=== PATIENT | male | born 1955 | race Caucasian/White ===

== ENCOUNTER 2024-11-12 20:14 | Inpatient (IN) | payer MEDICARE, BC, SELFPAY ==
[2024-11-12] VITALS (21 sets, daily range): BP systolic 62–141; BP diastolic 34–109; BMI 43.5
[2024-11-12] MEDS: DIPRIVAN 100 MG IV ×3 (17:46→18:29)
[2024-11-12] MEDS: LOPRESSOR 5 MG IV (17:56)
[2024-11-12] MEDS: ANECTINE 100 MG IV (18:00)
[2024-11-12] MEDS: AMIDATE 20 MG IV (18:01)
[2024-11-12 18:02] LABS: B.E. -10.2 mmol/L; O2 Saturation % 99.6 % (94-98); PCO2 47 mmHg (35-48); PO2 200 mmHg (83-108)
[2024-11-12 18:09] LABS: INR 1.06; PT 14.2 Sec (11.4-14.6)
[2024-11-12 18:10] LABS: APTT 28.1 Sec (23.4-35.0)
[2024-11-12 18:14] LABS: COVID-19 Antigen Negative (Negative); pH 7.19 (7.35-7.45)
[2024-11-12 18:16] LABS: ALT (SGPT) 359 U/L (0-50); AST (SGOT) 285 U/L (17-59); Albumin 4.6 g/dl (3.5-5.0); Alkaline Phosphatase 97 U/L (38-126); Blood Urea Nitrogen 27 mg/dl (9-20); Calcium 9.1 mg/dl (8.4-10.2); Carbon Dioxide 17 mmol/L (22-30); Chloride 104 mmol/L (98-107); Glucose 344 mg/dl (70-99); Lactic Acid 7.2 mmol/L (0.7-2.0); Lipase 134 U/L (23-300); Magnesium 2.6 mg/dl (1.6-2.3); Phosphorus 5.1 mg/dl (2.5-4.5); Sodium 141 mmol/L (135-145); Total Bilirubin 0.9 mg/dl (0.2-1.3); Total Protein 7.3 g/dl (6.3-8.2); eGFR 45.78
[2024-11-12 18:19] LABS: Alcohol None Detected
[2024-11-12 18:21] LABS: % Basophils 0.8 % (0-2); % Eosinophils 2.3 % (0-6); % Immature Granulocytes 2.2 % (0-0.5); % Lymphocytes 33.7 % (20.5-51.1); % Monocytes 6.3 % (1.7-9.3); % Neutrophils 54.7 % (42.2-75.2); Absolute Basophils 0.1 10^3/uL (0-0.2); Absolute Eosinophils 0.4 10^3/uL (0-0.7); Absolute Immature Granulocytes 0.3 10^3/uL (0-0.05); Absolute Lymphocytes 5.1 10^3/uL (1.2-3.4); Absolute Neutrophils 8.3 10^3/uL (1.4-6.5); Hematocrit 41.7 % (39.0-52.0); Hemoglobin 13.8 g/dL (13.0-18.0); Mean Corp Hgb Conc. 33.1 g/dL (33.0-37.0); Mean Corpuscular Hgb 28.2 pg (27.0-31.0); Mean Corpuscular Volume 85.1 fL (80.0-94.0); Mean Platelet Volume 10.7 fL (7.4-10.4); Nucleated Red Blood Cells % 0 % (-); Platelet Count 249 10^3/uL (130-400); Red Cell Dist. Width 14.7 % (11.5-14.5); White Blood Cell Count 15.2 10^3/uL (4.8-10.8)
[2024-11-12 18:23] LABS: NT-proBNP 638 pg/ml; Troponin I 0.023 ng/ml
[2024-11-12] MEDS: SUBLIMAZE 100 MCG IV ×2 (18:28→19:05)
--- NOTE | 2024-11-12 18:33 | EDRN ---
ECHO at bedside.
[2024-11-12] MEDS: SODIUM BICARBONATE 50 MEQ IV ×2 (18:40→23:22)
--- NOTE | 2024-11-12 18:42 | ED.GENMED ---
History of Present Illness
General
Chief Complaint: CODE
Source: records, family and ambulance crew
Exam Limitations: clinical condition
Time Seen by Provider: 11/12/24 17:37
Nursing documentation reviewed up to this point in time: agreed with
History of Present Illness
History of Present Illness:
69-year-old male with history of CHF, atrial fibrillation, CAD, insulin-dependent diabetes, obesity presents to the emergency room via EMS status post cardiac arrest. Patient cannot participate in history. According to his who I spoke with
directly they had just finished at the shooting range and when patient was getting into the car he became pale and unresponsive. and bystanders started CPR essentially immediately. EMS arrived to the scene a few minutes later. Their initial
rhythm per EMS report was ventricular fibrillation. ACLS initiated patient received total of 30 to 35 minutes of ACLS prior to ROSC in the field. Patient received 5 total shocks in the field for VT/VF. Received lidocaine 150 mg, multiple rounds
of epinephrine as well as 2 g of IV magnesium as there was concern for an episode of torsades de point at some point. He was intubated in the field.
Past History
Past History
ED Past Medical History: NIDDM and Other (sleep apnea, )
ED Past Surgical History: Cardiac (stents, ablation) and Other (ablation, ortho)
Social History
Tobacco: Former smoker
Alcohol: None
Drug: None
Review of Systems
Review of Systems
Unable to obtain full review of systems at this time due to: due to acuity
All Other Systems: Not applicable
Phy Exam
Physical Exam
Physical Exam:
General: Unresponsive
Head: Normocephalic, atraumatic
Eyes: Conjunctiva normal, pupils midrange and sluggish
Throat: Airway intact, endotracheal tube in place
Neck: Trachea midline, no JVD
Lungs: Bilateral breath sounds present
Heart: Tachycardia with regular rhythm, no murmurs, gallops, or rubs
Abd: Soft, mildly distended
Neuro: Unresponsive
Skin: no signs of trauma
Extremities: No edema in extremities, left pretibial intraosseous line in place
Scores
Heart Failure Risk
Heart Failure Risk Score: Not Applicable
Heart Score for Chest Pain Patients
STEMI patient?: Not applicable
Withdrawal Assessment of Alcohol
Withdrawal Assessment Completed?: Not applicable
Course
Orders/Labs/Results
Orders:
Orders
11/12/24 17:35
Electrocardiogram (*1) Urgent
Reason for Study: Chest Pain
EKG- Treatment ONCE
11/12/24 17:36
Portable Chest Xray [CR Chest Portable - 1 View] Stat
Comment:
Reason For Exam: code
Reason Study Needs to be Portable: Patient Unstable
11/12/24 17:37
CT Head W/o Iv Contrast Urgent
Comment:
Reason For Exam: cardiac arrest
Drug Screen, Urine [Urine Drug Abuse Screen] Urgent
Date Specimen was Collected: 11/12/24
Time Specimen was Collected: 17:48
Urinalysis Reflex To Culture Urgent
Date Specimen was Collected: 11/12/24
Time Specimen was Collected: 17:48
11/12/24 17:38
CT Chest PE Study Urgent
Comment:
Reason For Exam: cardiac arrest, hypoxia
11/12/24 17:42
Electrocardiogram (*1) Urgent
Reason for Study: Chest Pain
EKG- Treatment ONCE
11/12/24 17:44
Propofol 1,000,000 Mcg/100 ml [Diprivan] 1,000,000 mcg in 100 ml .ROUTE .STK-MED
Propofol [Diprivan] 20 ml .ROUTE .STK-MED
11/12/24 17:46
Propofol [Diprivan] 100 mg IV NOW STA
11/12/24 17:48
Metoprolol [Lopressor] 5 mg .ROUTE .STK-MED ONE
11/12/24 17:49
ABG [Arterial Blood Gas] Urgent
%Oxygen/Room Air: 90
Alcohol Urgent
COVID-19 Antigen Urgent
Source: Nasal Swab
Complete Blood Count/With Diff Urgent
Comprehensive Metabolic Panel Urgent
Lactate Level [Lactic Acid] Urgent
Lipase Urgent
Magnesium Urgent
NT-proBNP Urgent
PTT Urgent
Phos [Phosphorus] Urgent
Prothrombin Time Urgent
TSH Reflex To Free T4 Urgent
Troponin I Urgent
11/12/24 17:56
Metoprolol [Lopressor] 5 mg IV NOW STA
11/12/24 18:00
Succinylcholine Chloride [Anectine] 100 mg IV NOW STA
11/12/24 18:01
Etomidate [Amidate 20 mg] 20 mg IV NOW STA
11/12/24 18:10
Portable Chest Xray [CR Chest Portable - 1 View] Stat
Comment:
Reason For Exam: retubed
Reason Study Needs to be Portable: Patient Unstable
11/12/24 18:23
Propofol [Diprivan] 20 ml .ROUTE .STK-MED
11/12/24 18:26
FentaNYL 1,000 MCG/100 ML [Sublimaze] 1,000 mcg in 100 ml .ROUTE .STK-MED
Fentanyl Citrate/Pf [Sublimaze] 100 mcg .ROUTE .STK-MED ONE
Propofol [Diprivan] 100 mg IV NOW STA
11/12/24 18:28
Fentanyl Citrate/Pf [Sublimaze] 100 mcg IV NOW STA
11/12/24 18:29
Propofol [Diprivan] 100 mg IV NOW STA
11/12/24 18:41
Triglycerides Routine
Comment: baseline levels with propofol infusion
FentaNYL INFUSION TITRATE NOW X 1 BAG FentaNYL 1,000 MCG/100 ML [Sublimaze] 1,000 mcg in 100 ml IV NOW
Indication:: Light Sedation
Begin Infusion:: Now
Goal:: pain score </= 1, CPOT 0-2
Maximum dose in mcg/hr:: 300
Initial Dose in mcg/hr:: 2
Titration Instructions:: Titrate every 30 minutes if patient exhibits signs of pain or discomfort
Titration Instructions:: (pain score >/= 2, CPOT >/= 3).
Titration Instructions:: Administer bolus dose and increase infusion by 25 mcg/hr.
Taper Instructions:: If pain score at goal for 4 consecutive hours (pain score </= 1, CPOT 0-2)
Taper Instructions:: decrease infusion by 50 mcg/hr every 2 hours.
Taper Instructions:: When dose </= 50 mcg/hr may turn infusion off and consider PRN
Taper Instructions:: intermittent bolus doses only.
Over-sedation Instructions:: If CPOT 0-2 (goal) and RASS -3 to -5 (below goal) decrease sedative by 50%
Over-sedation Instructions:: first. If pain score remains at goal and RASS remains below goal in 1 hour,
Over-sedation Instructions:: decrease opioid infusion by 50%.
Notify provider:: immediately if pt exhibits: chest wall rigidity, hemodynamic instability,
Notify provider:: agitation/pain despite maximum dosing, pain when RASS below goal.
Additional Instructions:: Patient MUST be mechanically ventilated.
Fentanyl Citrate/Pf [Sublimaze] 100 mcg IV NOW STA
Fentanyl Citrate/Pf [Sublimaze] 50 mcg IV [id number] PRN
Heparin 4,000 units IV NOW STA
Pharmacy Request to Place See Dose Instructions PO NOW STA
Discontinue all Active Warfarin orders?: Yes
Propofol INFUSION Titrate NOW X 1 BOTTLE Propofol 1,000,000 Mcg/100 ml [Diprivan] 1,000,000 mcg in 100 ml IV NOW
Indication:: Light Sedation
Begin Infusion:: Now
Goal:: RASS 0 to -2
Maximum dose in mcg/kg/min:: 50
Initial dose based on RASS:: Yes
If RASS is:: +1 or pt hemodynamically unstable (SBP < 90mmHg), initiate at 10 mcg/kg/min
If RASS is:: +2, initiate at 20 mcg/kg/min
If RASS is:: greater than or equal to +3, initiate at 30 mcg/kg/min
Titration Instructions:: Titrate by 5-10 mcg/kg/min every 5 minutes until RASS 0 to -2 achieved.
Taper Instructions:: If RASS is at or below goal for 4 consecutive hours decrease infusion by
Taper Instructions:: 5-10 mcg/kg/min every 2 hours to off.
Over-sedation Instructions:: If CPOT 0-2 (at goal) AND RASS -3 to -5 (below goal) decrease sedative by
Over-sedation Instructions:: 50% first. If pain score remains at goal and RASS remains below goal in
Over-sedation Instructions:: 1 hour, decrease opioid infusion by 50%.
Notify provider:: immediately if patient exhibits signs/symptoms of propofol-related
Notify provider:: infusion syndrome.
Additional Instructions:: Patient MUST be mechanically ventilated and MUST receive analgesia.
11/12/24 18:42
Aspirin 300 mg RECTAL NOW STA
Nursing to Place Non Medication Order As Directed
Physician Order: PTT 6 hours after initial start of Heparin infusion
11/12/24 18:45
Echo 2D MMode Color/Doppler Urgent
Reason for Study: CHEST PAIN
Heparin INFUSION titrate rate - CONTINUOUS Heparin 09430 Units/250 ml 25,000 units in 250 ml IV PER PROTOCOL
Weight to be used for heparin protocol in kilograms (kg):: 157
Protocol:: Cardiac Tx/Acute Coronary
PTT Goal Range to be used:: PTT 73 to 111 seconds
Order type:: Initial
INITIAL Infusion Dose (UNITS/KG/hr) & then follow protocol:: 12 units/kg/hr
Infusion Dose in UNITS/hr & then follow protocol (UNITS/hr):: 1,000
INFUSION RATE in mL/hr & then follow protocol (mL/hr):: 10
PTT less than or equal to 64 seconds:: Increase rate by 200 units/hr (+ 2 mL/hr)
PTT 64.1 to 72.9 seconds:: Increase rate by 100 units/hr (+ 1 mL/hr)
PTT 73 to 111 seconds:: Target Range. No change in rate.
PTT 111.1 to 130.9 seconds:: Decrease rate by 100 units/hr (- 1 mL/hr)
PTT 131 to 199.9 seconds:: HOLD for 1 hr. Then decrease rate by 200 units/hr (- 2 mL/hr)
PTT greater than or equal to 200 seconds:: HOLD for 2 hrs & Notify Provider. Then decrease by 200 units/hr (-
2 mL/hr)
Lab follow-up:: Each change, PTT q6h until 2 consecutive are therapeutic. Then PTT
daily.
11/12/24 19:[address] See Dose Instructions IV DIRECTED
Abnormal Lab Results
11/12/24
17:49
WBC 15.2 H 10^3/uL
(4.8-10.8)
RDW 14.7 H %
(11.5-14.5)
MPV 10.7 H fL
(7.4-10.4)
Abs Immat Gran (auto) 0.3 H 10^3/uL
(0-0.05)
Absolute Neuts (auto) 8.3 H 10^3/uL
(1.4-6.5)
Absolute Lymphs (auto) 5.1 H 10^3/uL
(1.2-3.4)
Absolute Monos (auto) 1.0 H 10^3/uL
(0.1-0.6)
Immature Gran % 2.2 H %
(0-0.5)
pH 7.19 L*
(7.35-7.45)
pO2 200 H mmHg
(83-108)
HCO3 18.0 L mmol/L
(21-28)
ABG O2 Sat (Measured) 99.6 H %
(94-98)
Carbon Dioxide 17 L mmol/L
(22-30)
BUN 27 H mg/dl
(9-20)
Creatinine 1.6 H mg/dL
(0.7-1.3)
Glucose 344 H mg/dl
(70-99)
Lactic Acid 7.2 H* mmol/L
(0.7-2.0)
Phosphorus 5.1 H mg/dl
(2.5-4.5)
Magnesium 2.6 H mg/dl
(1.6-2.3)
AST 285 H U/L
(17-59)
ALT 359 H U/L
(0-50)
11/12/24 17:49
11/12/24 17:49
Vital Signs
Initial and Last Documented VS:
Initial Vital Signs
Temp Pulse Resp BP Pulse Ox
36.6 C 122 28 121/96 98
11/12/24 17:35 11/12/24 17:35 11/12/24 17:35 11/12/24 17:35 11/12/24 17:35
Last Documented Vital Signs
Temp Pulse Resp BP Pulse Ox
36.6 C 118 22 141/104 100
11/12/24 17:35 11/12/24 18:03 11/12/24 18:03 11/12/24 18:03 11/12/24 18:03
Procedures
Intubations
Procedure completed by: Aleksey Maguire MD
Method of Intubation: glidescope
Tube size (cm): 7.5
Placement confirmed by: auscutation, CXR, capnography and direct visualization
Breath sounds after intubation: equal
Intubation complications: no complications
Central Line
Left Femoral:
Indication for procedure:: cardiac arrest
Procedure completed by: Aleksey Maguire MD
If no, reason: Emergency procedure
Central line lumen: triple
Number of attempts: 2
Central line complications: none
Sterile dressing applied?: Yes
MDM/Problems Addressed
Differential Diagnosis Includes:
Cardiac arrest�TN, PE, dysrhythmia
MDM/Problems Addressed:
69-year-old male presents status post cardiac arrest�witnessed arrest by family had approximately 35 minutes of CPR in the field. Multiple shocks and medications as described above. He arrives to us with palpable pulse, blood pressure 121/96,
tachycardic in the 120s. Initially patient unresponsive but shortly after arrival he began to open his eyes and actually pushed out his endotracheal tube with his tongue. For this reason patient underwent rapid sequence intubation once again and
endotracheal tube placed by me. Started on sedation. Left femoral CVC placed. His initial EKG was concerning for inferior ST changes. Repeat shows essentially resolution of these changes. Case was discussed at length with interventional
cardiology. Plan for stat echo. Aspirin and heparin infusion. Plan for medical management prior to cardiac cath�no plan for emergent cath at this point in time. Case discussed with hospitalist to facilitate ICU admission.
Chronic conditions affecting care:
Obesity, CHF, CAD
*Radiology
Radiology exam reviewed: preliminary read by ED provider and radiology read reviewed
*Pulse Oximetry
Patient hypoxic: yes
*EKG
Interpreted by ED Provider?: Yes
Heart Rate: 125
Rate: tachycardiac
Rhythm: sinus
Max: left axis deviation
Interval: normal interval
QRS Pattern: wide non-specific
Ischemia: non-specific ST changes
*Critical Care Note
Total Time (30-74mins, 75-104mins- exclusive of procedures): 49
comment:
Critical care statement: A total of 49 minutes of critical care time was provided for this patient. This includes management of unstable vital signs, evaluation of the patient at bedside, frequent reassessment, discussion with
consultants/hospitalist, and review of pertinent medical records. This time was separate from time utilized to perform any aforementioned documented procedures
Data Reviewed
Review of Other/Old Records Reveals: Records
Source: records, family and ambulance crew
Patient Management
Discussion with other providers: Hospitalist (Discussed with hospitalist) and Environmental Technical Officer (Discussed with interventional cardiology)
Escalation/DeEscalation of care consider admission/obs:
Admission indicated
ED Attending Note
-
Portions of this chart may have been created with voice recognition software.� Occasional wrong word or��sound alike� substitutions may have occurred due to the inherent limitations of voice recognition software.
Discharge Plan
Departure
Patient Disposition: Admit
Date of Disposition: 11/12/24
Time of Disposition: 18:49
Admit to doctor: Harpreet
Presentation/result/management discussed w/ accepting MD/DO: Hospitalist
Discharge Problem:
Cardiac arrest, Non-ST elevation TN (NSTEMI)
Prescriptions:
No Action
latanoprost 0.005 % Drops
1 drp HS
Rx Instructions:
one drop into right eye at bedtime
atorvastatin 80 mg Tablet
80 mg PO HS
repaglinide 2 mg Tablet
2 mg PO BID
fexofenadine 180 mg Tablet
180 mg PO DAILY
aspirin 81 mg Tablet,Delayed Release (Dr/Ec)
81 mg PO DAILY
bisoprolol fumarate 5 mg Tablet
5 mg PO DAILY
omeprazole 20 mg Capsule,Delayed Release(Dr/Ec)
20 mg PO BID
lisinopril 5 mg Tablet
5 mg PO DAILY
metformin 500 mg Tablet Extended Release 24 Hr
500 mg PO BID
Januvia 100 mg Tablet
100 mg PO DAILY
insulin glargine [Basaglar KwikPen U-100 Insulin] 100 unit/mL (3 mL) Insulin Pen
42 unit SC DAILY
magnesium oxide 500 mg Tablet
500 mg PO DAILY 100 Days Qty: 100 0RF
furosemide 40 mg Tablet
40 mg PO BID AT 0800,1600 30 Days Qty: 60 0RF
tamsulosin 0.4 mg Capsule
0.8 mg PO DAILY 30 Days Qty: 60 0RF
polyethylene glycol 3350 17 gram Powder In Packet
17 g PO DAILY PRN (Reason: constipation) 30 Days Qty: 30 0RF
finasteride 5 mg Tablet
5 mg PO DAILY 30 Days Qty: 30 0RF
sennosides-docusate sodium 8.6-50 mg Tablet
1 tab PO BID PRN (Reason: constipation) 30 Days Qty: 60 0RF
acetaminophen 325 mg Tablet
650 mg PO Q4HPRN PRN (Reason: Mild Pain / Temp > 101) 100 Days Qty: 100 0RF
ciprofloxacin HCl [Cipro] 500 mg tablet
500 mg PO BID 9 Days Qty: 18 0RF
Referrals:
UNKNOWN,NO INTERVIEW [Family Provider] -
Interventions
Interventions:
*Risk Screen - Suicide Last Done: 11/12/24 17:35
*ED- Fall Risk Assessment Last Done: 11/12/24 17:35
ED- Pulmonary Assessment Last Done: 11/12/24 18:01
Discharge Date and Time
Print Language: YAKUT
[2024-11-12 18:46] LABS: TSH Reflex To Free T4 2.92 uIU/ml (0.47-4.68)
[2024-11-12 18:55] LABS: Urine Albumin 4+ (Neg - Trace); Urine Bilirubin Negative (Negative); Urine Character Slightly Cloudy (Clear); Urine Color Yellow; Urine Glucose 4+ (Negative); Urine Ketone 1+ (Negative); Urine Leukocyte 1+ (Negative); Urine Nitrite Negative (Negative); Urine Occult Blood 4+ (Negative); Urine Specific Gravity 1.025 (<1.030); Urine Urobilinogen Negative (Neg - 1+)
--- NOTE | 2024-11-12 19:01 | PHANOTE ---
[employer](11/12/24)- Spoke with spouse in waiting room, unable to interview patient at this time. She did not know his medications, and she was unable to access his online medical records. Established list through [facility] records of what
patient has filled at [facility].
[2024-11-12 19:02] LABS: Urine Mucus Moderate; Urine Squamous Cell 16-20 /LPF (Few); Urine White Cell 26-30 /HPF (0-5)
[2024-11-12 19:03] LABS: Urine Bacteria Many (Negative); Urine Red Blood Cell 50-60 /HPF (0-2)
[2024-11-12] MEDS: DIPRIVAN 100 IV ×3 (19:03→22:02)
[2024-11-12 19:05] LABS: Amphetamines Negative (Negative); Barbiturates Negative (Negative); Benzodiazepines Negative (Negative); Buprenorphine Negative (Negative); Cocaine Negative (Negative); Marijuana Negative (Negative); Methadone Negative (Negative); Methamphetamines Negative (Negative); Opiates Negative (Negative); Phencyclidine Negative (Negative); Tricyclic Antidepressants Negative (Negative)
[2024-11-12] MEDS: SUBLIMAZE 50 MCG IV (19:05)
[2024-11-12] MEDS: SUBLIMAZE 100 IV (19:06)
[2024-11-12] MEDS: ASPIRIN 300 MG RECTAL (19:06)
[2024-11-12 19:16] LABS: B.E. -6.9 mmol/L; HCO3 21.8 mmol/L (21-28); O2 Saturation % 96.3 % (94-98); PCO2 57 mmHg (35-48); PO2 86 mmHg (83-108)
[2024-11-12 19:18] LABS: pH 7.19 (7.35-7.45)
--- NOTE | 2024-11-12 19:24 | CON.CAR ---
Consultation
Consultation Request
Date/Time Consultation Requested: 11/12/2024 5 PM
Date/Time Consultation Performed: 11/12/2024 5 PM
Requesting Provider: Dr. Aleksey Maguire
Performing Provider: Dr. Mario Curiel
Reason for Consultation: cardiac arrest, concern for ACS
Medical History
-
History of Present Illness:
69-year-old male with history of CHF (EF 35% in 2021), atrial fibrillation s/p PVI (2005, 2015), CAD with reported remote stenting in 2006, insulin-dependent diabetes, obesity presents to the emergency room via EMS status post cardiac arrest. As
reported by the emergency department physcians who spoke to the patient's , they had just finished at the shooting range and when patient was getting into the car he became pale and unresponsive. and bystanders started CPR essentially
immediately. EMS arrived to the scene a few minutes later. Their initial rhythm per EMS report was ventricular fibrillation. ACLS initiated patient received total of 30 to 35 minutes of ACLS prior to ROSC in the field. Patient received 5 total
shocks in the field for VT/VF. Received lidocaine 150 mg, multiple rounds of epinephrine as well as 2 g of IV magnesium as there was concern for an episode of torsades de point at some point. He was intubated in the field.
In the ED the patient maintained durable ROSC, did not require pressors. Was difficult to sedate on the vent but eventually able to be sedated with fent/prop. Initial ECG with sinus tachycardia and concern for possible inferior ROLANDO. These improved
with distance from arrest and improvement in heart rate over ensuing 30 minutes. Labs notable for pH 7.19, trop 0.023, lactate 7.2. Echocardiogram was performed demonstrating severely reduced EF, with technically limitations in setting of his
instability and habitus precluding definitive assessment of wall motion abnormalities.
TTE 2021
CONCLUSIONS
1. Dilated LV with inferolateral and anterolateral hypokinesis with EF 35-40%
2. RVE
3. MAC with trace MR
4. Borderline pulmonary hypertension
Past Medical History
Past Medical History: Arrhythmias (NSVT), CHF, HTN, Hypercholesterolemia and IDDM
Allergies / Home Medications
Allergy/AdvReac Type Severity Reaction Status Date / Time
bee venom protein (honey bee) Allergy Swelling Verified 11/12/24 19:03
Penicillins Allergy Rash Verified 11/12/24 19:03
labetalol AdvReac Nausea / Verified 11/12/24 19:03
Vomiting
metoprolol AdvReac Nausea / Verified 11/12/24 19:03
Vomiting
�Medication �Instructions �Recorded �Confirmed �Type
atorvastatin 80 mg tablet 80 mg PO HS High cholesterol 04/04/22 04/04/22 History
bisoprolol fumarate 5 mg tablet 5 mg PO DAILY Blood pressure 04/04/22 04/04/22 History
insulin glargine 100 unit/mL (3 42 unit SC DAILY Diabetes 04/04/22 04/04/22 History
mL) subcutaneous pen (Basaglar
KwikPen U-100 Insulin)
latanoprost 0.005 % eye drops 1 drp RIGHT EYE HS Eye condition 04/04/22 04/04/22 History
lisinopril 5 mg tablet 5 mg PO DAILY Blood pressure 04/04/22 04/04/22 History
metformin 500 mg tablet,extended 500 mg PO TID Diabetes 04/04/22 04/04/22 History
release 24 hr
omeprazole 20 mg capsule,delayed 20 mg PO BID Gastrointestinal issue 04/04/22 04/04/22 History
release
sitagliptin phosphate 100 mg 100 mg PO DAILY Diabetes 04/04/22 04/04/22 History
tablet (Januvia)
finasteride 5 mg tablet 5 mg PO DAILY 30 days #30 tabs 04/10/22 Rx
tamsulosin 0.4 mg capsule 0.8 mg (2 x 0.4 mg) PO DAILY 30 04/10/22 Rx
days #60 caps
naltrexone 50 mg tablet 25 mg PO DAILY 11/12/24 History
repaglinide 1 mg tablet 1 mg PO TID 11/12/24 History
spironolactone 25 mg tablet 12.5 mg PO BID 11/12/24 History
Review of Systems
-
Unable to obtain full review of systems at this time due to: Patient Intubation
Physical Exam
Vital Signs
Temp Pulse Resp BP Pulse Ox
36.6 C 105 24 132/109 100
11/12/24 17:35 11/12/24 19:00 11/12/24 19:00 11/12/24 19:00 11/12/24 18:03
Lab Results
11/12/24 17:49
11/12/24 17:49
Troponin I 0.023 ng/ml 11/12/24 17:49
Ztm-[id number]-Gkwzovvocpz Pept 638 pg/ml 11/12/24 17:49
Physical Exam
General: Well Developed
HEENT: Normocephalic
Respiratory: Other (intubated)
Cardiac: Regular Rhythm and Other (no MRG, warm, strong radial pulses, JVD unable to be assessed due to supine position/habitus, no NATHAN)
Skin: Warm
Neuro: Sedated
Impression / Plan
-
69 year old man with past medical history of distant CAD, hypertension, hyperlipidemia, insulin-dependent diabetes, Afib s/p ablation, presenting with cardiac arrest with initial rhythm of VF. While there was initial concern for sub-millimeter
inferior ST elevations, these have resolved with distance from his arrest and improvement in his sinus tachycardia. Echocardiogram was performed with the intent of evaluating regional wall motion abnormalities and demonstrated severely reduced EF
with wall motion assessment limited by technical factors. The patient remains hemodynamically stable, in fact, hypertensive with no pressors. Given the lack of definitive ST elevations, no ongoing arrhythmias or evidence of cardiogenic shock, we
will defer emergent coronary angiography in favor of delayed coronary angiography once the patient is stabilized. The patient should be medically managed for ACS with heparin drip and aspirin. Should the patient have a recurrent VT VF arrest,
evidence of cardiogenic shock, or new ischemic changes on ECG, emergent angiography should be rediscussed. If patient develops increasing frequency of PVCs, NSVT or has recurrent VT VF arrest, he should be treated with amiodarone and/or lidocaine.
Pending stabilization and ability to take PO meds, he will need to be reinitiated on and titrated to optimal GDMT for HFrEF. Complete echo with contrast should be performed once patient is stable. Of note, the patient has a history of A-fib with
high [id number] but has declined anticoagulation in the past.
Data Reviewed
-
EKG: Tracing Personally Visualized and interpreted, Report Reviewed by me and Discussed with Physician
Ultrasound: Image Personally Visualized and interpreted and Discussed with Physician
Medical Tests (Nuc Med, Echo etc): Image Personally Visualized and interpreted
Labs: Labs Reviewed by me and Discussed with Physician
Critical Care Time (in minutes): 45
--- NOTE | 2024-11-12 19:47 | HPS.HSE ---
Family Physician
-
Family Physician: NO INTERVIEW UNKNOWN
Chief Complaint
-
Cardiac Arrest
History of Present Illness
Patient is a 69y M with PMH significant for ASCVD, A-Fib, hypertension and obesity who presents to ED as cardiac arrest. History obtained from ED staff, EMS record and family at the bedside. Patient was reportedly in good health recently.
Today he was getting into his car when he suddenly passed out and appeared 'ashen' and 'gasping for breath'. Bystanders initiated prompt CPR and 911 was called. Patient received a total of 30-40 minutes of CPR. EMS reports that initial rhythm was
ventricular fibrillation. Patient received lidocaine 150mg x 1, magnesium sulfate and 5 total defibrillations. He also received multiple doses of epinephrine. Patient was intubated in the field and ROSC was achieved.
He arrived at ED with pulse in the 110s. He was restless and somewhat agitated. He was able to remove his ETT with his tongue and this was replaced under sedation in the ED.
At the time of my examination, patient is more sedated - though still responds to noxious stimuli.
Patient has long history of CV disease including coronary stents x 4 (most recent was about 20 years ago).
He was most recently hospitalized in September 2023 for CHF.
denies any recent illness, cough, fevers / chills, N/V/D, etc.
No recent medication changes.
Medical History
Past Medical History
Past Medical History: Reports Other
Additional Past Medical History:
ASCVD
HFrEF (35-40% EF by last record - 2021)
Paroxysmal Atrial Fibrillation
Hypertension
DM-II
Obesity
HUANG
BPH
Past Surgical History: Reports Other
Additional Past Surgical History:
PTCA with Stent (x 4)
PVI Ablation x 2
Multiple DCCV
Social History
Tobacco: Former Smoker (Quit smoking 20 y ago. Approx 20 pack years total use.)
Alcohol: Occasional (Rare EtOH use.)
Drug: None
Personal:
Family History
Family History: Other (Father / Brother: from heart disease in their 50s.)
Allergies / Home Medications
Allergies reflects when Allergies were last updated in [facility].
Home Medications with original date entered in [facility]
Allergy/Medication List:
Allergies
Allergy/AdvReac Type Severity Reaction Status Date / Time
bee venom protein (honey bee) Allergy Swelling Verified 11/12/24 19:03
Penicillins Allergy Rash Verified 11/12/24 19:03
labetalol AdvReac Nausea / Verified 11/12/24 19:03
Vomiting
metoprolol AdvReac Nausea / Verified 11/12/24 19:03
Vomiting
Home Medications
atorvastatin 80 mg tablet 80 mg PO HS High cholesterol 04/04/22
bisoprolol fumarate 5 mg tablet 5 mg PO DAILY Blood pressure 04/04/22
insulin glargine 100 unit/mL (3 mL) subcutaneous pen (Basaglar KwikPen U-100 Insulin) 42 unit SC DAILY Diabetes 04/04/22
latanoprost 0.005 % eye drops 1 drp RIGHT EYE HS Eye condition 04/04/22
lisinopril 5 mg tablet 5 mg PO DAILY Blood pressure 04/04/22
metformin 500 mg tablet,extended release 24 hr 500 mg PO TID Diabetes 04/04/22
omeprazole 20 mg capsule,delayed release 20 mg PO BID Gastrointestinal issue 04/04/22
sitagliptin phosphate 100 mg tablet (Januvia) 100 mg PO DAILY Diabetes 04/04/22
finasteride 5 mg tablet 5 mg PO DAILY 30 days #30 tabs 04/10/22
tamsulosin 0.4 mg capsule 0.8 mg (2 x 0.4 mg) PO DAILY 30 days #60 caps 04/10/22
furosemide 20 mg tablet 20 mg PO DAILY 11/12/24
naltrexone 50 mg tablet 25 mg PO DAILY 11/12/24
potassium chloride 20 mEq tablet,extended release 20 meq PO DAILY 11/12/24
repaglinide 1 mg tablet 1 mg PO TID 11/12/24
spironolactone 25 mg tablet 12.5 mg PO BID 11/12/24
Review of Systems
-
Unable to obtain full review of systems at this time due to: Patient Intubation
History Source: Family
Constitutional: Denies Fever
EENT: Denies Sore Throat
Respiratory: Denies Cough
Abdomen/GI: Denies Nausea, Vomiting or Diarrhea
Neurological: Denies Headache
Physical Exam
Vital Signs
Vital Signs
Temp Pulse Resp BP Pulse Ox
97.8 F 99 25 92/70 100
11/12/24 17:35 11/12/24 19:15 11/12/24 19:15 11/12/24 19:15 11/12/24 18:03
Physical Exam
General: Other (69y M intubated and sedated in the ED. )
HEENT: Other (ETT in place. MMM. Thick neck.)
Respiratory: Clear; No Wheezes, Rales or Rhonchi
Cardiac: S1/S2 and Regular Rhythm (with ectopy.); No Murmur
GI: Non Tender, Non Distended, Normal Bowel Sounds and Other (Obese)
Genito-urinary: Other (Fontenot in place.)
Musculoskeletal: No Clubbing, No Cyanosis, No Edema and Other (L tibial IO in place. L femoral CVC in place.)
Neuro: Sedated
Laboratory Results
-
11/12/24 17:49
11/12/24 17:49
Laboratory Results
PT 14.2 Sec (11.4-14.6) 11/12/24 17:49
INR 1.06 11/12/24 17:49
APTT 28.1 Sec (23.4-35.0) 11/12/24 17:49
pH 7.19 (7.35-7.45) L* 11/12/24 19:09
pCO2 57 mmHg (35-48) H 11/12/24 19:09
pO2 86 mmHg (83-108) 11/12/24 19:09
HCO3 21.8 mmol/L (21-28) 11/12/24 19:09
Lactic Acid 7.2 mmol/L (0.7-2.0) H* 11/12/24 17:49
Total Bilirubin 0.9 mg/dl (0.2-1.3) 11/12/24 17:49
AST 285 U/L (17-59) H 11/12/24 17:49
ALT 359 U/L (0-50) H 11/12/24 17:49
Alkaline Phosphatase 97 U/L (38-126) 11/12/24 17:49
Troponin I 0.023 ng/ml 11/12/24 17:49
Lipase 134 U/L (23-300) 11/12/24 17:49
Impression/Plan
-
A/P: Patient is a 69y M with PMH significant for ASCVD, CHF and DM-II who presents to ED as cardiac arrest.
Cardiac Arrest
Ventricular Fibrillation
- Admit to ICU for further evaluation and treatment.
- Reported V-Fib on initial tracings in patient with known heart disease / cardiomyopathy.
- Continue amiodarone protocol initiated in the ED.
- Maintain supportive care including vent support, sedation, etc.
- Aggressive avoidance of fever. Note that patient was restless / moving about upon arrival to the ED.
- Cardiology evaluation appreciated. Will likely benefit from eventual ischemic evaluation.
- Bedside Echo done in the ED shows LVEF = 20% - reduced from prior value on record here (35-40% in 2021).
- Follow for patient response to sedation holiday / mental status.
Lactic Acidosis
Abnormal LFTs
- Likely secondary to cardiac arrest as noted above.
- Anion gap = 20 with lactate level = 7.2.
- Follow for normalization in anion gap with above treatment.
- Hold on diuresis for now.
ASCVD
- s/p prior stents - most recent about 20y ago per .
- No recent issues with chest pain, exertional dyspnea, etc.
- No prodrome of chest pain reported prior to arrest.
- EKG with non-specific ST changes but no evident ST elevations noted.
- IV heparin, daily ASA, etc.
Chronic HFrEF
- LVEF = 20% today compared with 35-40% in 2021.
- CXR shows some degree of pulmonary edema - but no rales appreciated on exam.
- Hold IVFs / diuretics for now. BP on the lower side after requiring significant sedation in the ED.
- Will likely require IV diuresis once BP stabilizes.
- Follow-up complete Echo.
- Cardiology evaluation as noted above.
Paroxysmal Atrial Fibrillation
- Currently in sinus rhythm.
- Not on any antiarrhythmic medications. Patient has declined OAC in the past.
Benign Hypertension
- BP slightly low at the time of my exam (90s systolic) after requiring significant sedation in the ED.
- Monitor for changes. Would likely resume diuretic medications if / when BP rises again.
DM-II
- Current hyperglycemia likely secondary to acute event.
- notes that glucose has been well-controlled recently.
- Continue basal insulin at about 1/2 dose.
- Cover with SSI as needed.
- Update A1C.
Obesity due to excess calories
HUANG on CPAP
- Affects all aspects of care.
- Currently on vent support - resume nightly CPAP after extubated.
- Encourage healthy diet and activity as able for goal of weight loss.
BPH with LUTS
- Fontenot placed in the ED.
- Patient scheduled for TURP in December.
DVT Prophylaxis: On therapeutic heparin.
Code Status: Full
[2024-11-12 20:27] LABS: Glucose - Point of Care 297 mg/dl (70-99)
[2024-11-12] MEDS: HEPARIN 25000 UNITS/250 ML IV (20:36)
[2024-11-12] MEDS: HEPARIN 4000 UNITS IV (20:37)
[2024-11-12] MEDS: LEVOPHED 250 IV ×2 (20:38→23:12)
[2024-11-12] MEDS: CORDARONE 103 MG IV (20:38)
[2024-11-12] MEDS: CORDARONE 518 MG IV (20:53)
[2024-11-12] MEDS: BUSPAR 30 MG TUBE (21:18)
[2024-11-12] MEDS: TYLENOL ORAL SOLUTION 650 MG TUBE (21:18)
[2024-11-12] MEDS: PROTONIX IV 40 MG IV (21:18)
[2024-11-12] MEDS: NOVOLIN R 5 UNITS IV ×2 (21:19→23:22)
[2024-11-12] MEDS: NOVOLIN R INSULIN INFUSION 100 IV (21:20)
[2024-11-12 22:11] LABS: Glucose - Point of Care 310 mg/dl (70-99)
[2024-11-12 23:01] LABS: B.E. -5.1 mmol/L; HCO3 19.9 mmol/L (21-28); Ionized Calcium 1.14 mMOL/L (1.15-1.33); PCO2 36 mmHg (35-48); PO2 217 mmHg (83-108); Sodium 131 mMOL/L (136-145); pH 7.35 (7.35-7.45)
[2024-11-12 23:03] LABS: Potassium 6.6 mMOL/L (3.5-5.1)
[2024-11-12 23:04] LABS: Glucose - Point of Care 326 mg/dl (70-99)
[2024-11-12] MEDS: CALCIUM CHLORIDE 10% SYRINGE 60 MG IV (23:29)
[2024-11-13 00:01] LABS: Glucose - Point of Care 318 mg/dl (70-99)
[2024-11-13] MEDS: TYLENOL ORAL SOLUTION 650 MG TUBE ×5 (00:14→23:40)
[2024-11-13] MEDS: DIPRIVAN 100 IV ×9 (00:14→23:40)
[2024-11-13] MEDS: BUSPAR 30 MG TUBE ×4 (00:15→23:40)
[2024-11-13 00:20] LABS: Triglycerides 206 mg/dl (10-149)
[2024-11-13 00:53] LABS: Hemoglobin 12.8 g/dL (13.0-18.0); Mean Corp Hgb Conc. 33.7 g/dL (33.0-37.0); Mean Corpuscular Hgb 28.4 pg (27.0-31.0); Mean Corpuscular Volume 84.4 fL (80.0-94.0); Mean Platelet Volume 10.6 fL (7.4-10.4); Platelet Count 248 10^3/uL (130-400); Red Cell Dist. Width 14.5 % (11.5-14.5); White Blood Cell Count 17.9 10^3/uL (4.8-10.8)
[2024-11-13] MEDS: SUBLIMAZE 50 MCG IV ×9 (00:53→22:27)
[2024-11-13 00:59] LABS: INR 1.09; PT 14.4 Sec (11.4-14.6)
[2024-11-13 00:59] LABS: Glucose - Point of Care 278 mg/dl (70-99)
[2024-11-13 01:04] LABS: Lactic Acid 3.6 mmol/L (0.7-2.0)
[2024-11-13 01:08] LABS: ALT (SGPT) 319 U/L (0-50); AST (SGOT) 293 U/L (17-59); Albumin 3.7 g/dl (3.5-5.0); Alkaline Phosphatase 77 U/L (38-126); Blood Urea Nitrogen 32 mg/dl (9-20); Calcium 9.9 mg/dl (8.4-10.2); Carbon Dioxide 22 mmol/L (22-30); Chloride 104 mmol/L (98-107); Estimated Creatinine Clearance 72 ml/min; Glucose 318 mg/dl (70-99); Magnesium 2.1 mg/dl (1.6-2.3); Phosphorus 3.8 mg/dl (2.5-4.5); Potassium 4.9 mmol/L (3.5-5.1); Sodium 137 mmol/L (135-145); Total Protein 6.2 g/dl (6.3-8.2); eGFR 49.47
[2024-11-13 01:14] LABS: % Basophils 0.3 % (0-2); % Eosinophils 0.1 % (0-6); % Immature Granulocytes 0.8 % (0-0.5); % Lymphocytes 5.9 % (20.5-51.1); % Monocytes 7.1 % (1.7-9.3); % Neutrophils 85.8 % (42.2-75.2); Absolute Basophils 0.1 10^3/uL (0-0.2); Absolute Immature Granulocytes 0.1 10^3/uL (0-0.05); Absolute Lymphocytes 1.1 10^3/uL (1.2-3.4); Absolute Monocytes 1.3 10^3/uL (0.1-0.6); Absolute Neutrophils 15.3 10^3/uL (1.4-6.5); Nucleated Red Blood Cells % 0 % (-)
[2024-11-13 01:49] LABS: Total CK 420 U/L (55-170)
--- NOTE | 2024-11-13 01:54 | W.PN.UPDATE ---
Update Note
Progress Note Update
Procedure Note: Arterial Line�
� Left Wrist Arrow 20 (09/28)�
Diagnosis:��Cardiac arrest
IV Line Comments: Uneventful Procedure�
Reg's test completed pre-procedure: Yes�
A-Line Comments: Sterile technique as per standard protocol, Ultrasound guided insertion�
Functioning A-line in situ: Yes�
A-line Insertion Start Time:�2114
A-line in at:��2229
[2024-11-13 01:56] LABS: Prealbumin (Transthyretin) 22.8 mg/dl (17.6-36.0)
[2024-11-13 02:00] LABS: Glucose - Point of Care 318 mg/dl (70-99)
[2024-11-13 02:39] LABS: CKMB 9.9 ng/ml (0.0-3.4)
[2024-11-13] MEDS: LEVOPHED 250 IV ×3 (02:40→10:55)
--- NOTE | 2024-11-13 02:50 | PTCARENOTE ---
Late note do to patient care. Pt was brought up by CLAIMS SERVICE REPRESENTATIVE, intubated and sedated, pupils 2/2, and sluggish. Withdraws to pain. TTM protocol started. NSR w/ 1st degree and BBB. Levophed, Heparin, Propofol, Fentanyl titrated per protocol. NGT placed.
Jason PRINTING SERVICES COORDINATOR placed Left [place]. Temp sensing Fontenot in place. Abrasion on right knee, scabs on right camp, and a rash on b/l medial ankles, otherwise skin is intact.
[2024-11-13 03:00] LABS: Glucose - Point of Care 330 mg/dl (70-99)
[2024-11-13 03:26] LABS: APTT 37.9 Sec (23.4-35.0)
[2024-11-13] MEDS: NOVOLIN R INSULIN INFUSION 100 IV ×3 (03:55→13:20)
[2024-11-13 04:01] LABS: Glucose - Point of Care 276 mg/dl (70-99)
[2024-11-13] MEDS: MAGNESIUM SULFATE 102 GRAMS IV (04:14)
[2024-11-13 05:01] LABS: Glucose - Point of Care 247 mg/dl (70-99)
[2024-11-13 05:58] LABS: B.E. -2.4 mmol/L; HCO3 21.4 mmol/L (21-28); Hematocrit 35.5 % (39.0-52.0); Hemoglobin 12.2 g/dL (13.0-18.0); Mean Corp Hgb Conc. 34.4 g/dL (33.0-37.0); Mean Corpuscular Hgb 28.1 pg (27.0-31.0); Mean Corpuscular Volume 81.8 fL (80.0-94.0); Mean Platelet Volume 11.1 fL (7.4-10.4); O2 Saturation % 98.9 % (94-98); PCO2 33 mmHg (35-48); PO2 95 mmHg (83-108); Platelet Count 224 10^3/uL (130-400); Red Blood Cell Count 4.34 10^6/uL (4.70-6.10); Red Cell Dist. Width 14.6 % (11.5-14.5); White Blood Cell Count 13.8 10^3/uL (4.8-10.8); pH 7.42 (7.35-7.45)
[2024-11-13 06:00] VITALS: BMI 43.7
[2024-11-13 06:00] LABS: Glucose - Point of Care 239 mg/dl (70-99)
[2024-11-13 06:02] LABS: O2 Therapy VENT
[2024-11-13 06:14] LABS: INR 1.03; PT 13.8 Sec (11.4-14.6)
[2024-11-13 06:15] LABS: APTT 39.2 Sec (23.4-35.0)
[2024-11-13 06:52] LABS: Lactic Acid 2.4 mmol/L (0.7-2.0)
[2024-11-13 06:58] LABS: Glucose - Point of Care 218 mg/dl (70-99)
[2024-11-13 07:00] VITALS: BP 91/68
[2024-11-13 07:01] LABS: Prealbumin (Transthyretin) 20.4 mg/dl (17.6-36.0)
[2024-11-13] MEDS: REFRESH CELLUVISC GEL 1 DROPS OPHTH ×2 (07:25→19:34)
[2024-11-13] MEDS: MIRALAX 17 GRAMS TUBE (07:25)
[2024-11-13] MEDS: PROTONIX IV 40 MG IV ×2 (07:26→19:46)
[2024-11-13 07:53] LABS: Glucose - Point of Care 210 mg/dl (70-99)
--- NOTE | 2024-11-13 08:11 | CON.INTV ---
Consultation
Consultation Request
Date/Time Consultation Requested: 11/12/2024 - 2026
Date/Time Consultation Performed: 11/13/2024804
Requesting Provider: Dr. Jaramillo
Performing Provider: Dr. Torres
Reason for Consultation: Cardiac Arrest
Medical History
-
Chief Complaint: Cardiac arrest
History of Present Illness:
69-year-old male with a past medical history of DM type II on insulin, hypertension, GERD, and BPH who presented with cardiac arrest. He had passed out in the parking lot after going target-shooting with his and family friend, and pt became
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 His family started CPR on him but his body positioning was difficult in the car so they grabbed someone from inside a store and they continued CPR until EMS arrived. CPR was reportedly started
immediately. EMS said initial rhythm was VF, and delivered 5 shocks, 4mg of epinephrine, 150 mg lidocaine and 2 g of magnesium for reported torsades de pointes. He was intubated in the field with ROSC obtained and then brought here to ER. He
was afebrile to 97.8 �F with HR 122, respiratory rate 28, BP 121/96 and saturating 98% on room air. Initial labs showed WBC 15.2, Hb 13.8, INR 1.06, initial blood gas 7.19/47/200/99.6%, creatinine 1.6, lactate 7.2, AST 285, ALT 359, troponin 0.023,
proBNP 638, TSH 2.92. He was making movements but unclear if they were purposeful, although he did find a way to push out the ETT with his tongue, which required reintubation in the ER. Initial CXR showed upper lobe patchy opacities, and initial CT
head showed no acute intracranial abnormality. CTA chest, CT abdomen/pelvis showed no evidence of an acute PE, aortic aneurysm or dissection, with multiple coastal cartilage + rib fractures, moderate diffuse bilateral dependent consolidation with
scattered patchy airspace opacities in the upper lung meehan, with no acute inflammatory process in the abdomen or pelvis. In the ER he was sedated with propofol + fentanyl drips, given bicarb x 1 amp, metoprolol 5 mg and aspirin 300 mg. Patient
started on hypothermic protocol, and admitted to the ICU for further care with personal lines appraiser services consulted for additional management/recommendations.
When I saw the patient this morning, his , Yareli, and friend, Dave, were both at bedside. Patient was intubated on AC/CMV at 20/550/8/40% with PIP 25 cmH2O, VTe 517 cc and breathing at 20 breaths/min. Currently on insulin drip at 14 units/hr,
sedated on fentanyl at 50 mcg/hr and propofol at 20 mcg/kg/min. Currently on Levophed at 6 mcg/min + amiodarone drip. All of the family's questions were answered. There is no seizure-like activity currently. Arctic sun attached to the patient
and his temperature is 36 �C.
PMHx: Chronic HFrEF, A-fib not on AC s/p PVI + DCCV, CAD s/p stents x 4 (placed 11/2007), hypertension, hyperlipidemia, DM type II, obesity, HUANG, BPH, GERD, glaucoma, allergies, bladder stones
PSHx: Left knee arthroscopy, right knee arthroscopy, coronary stents x 4 in November 2007, cystolitholopaxy/stent placement (2021), PVI ablation x 2, multiple DCCV
Past Medical History
Past Medical History: Other (Above as per HPI)
Past Surgical History: Other (Above as per HPI)
Social History
Tobacco: Former Smoker (Quit smoking 20 y ago. Approx 20 pack years total use.)
Alcohol: Other (Rare EtoH use)
Drug: None
Personal:
Living: With Family
Family History
Family History: Reviewed & Not Pertinent
Allergies / Home Medications
Allergies
Allergy/AdvReac Type Severity Reaction Status Date / Time
bee venom protein (honey bee) Allergy Swelling Verified 11/12/24 19:03
Penicillins Allergy Rash Verified 11/12/24 19:03
labetalol AdvReac Nausea / Verified 11/12/24 19:03
Vomiting
metoprolol AdvReac Nausea / Verified 11/12/24 19:03
Vomiting
Home Medications
�Medication �Instructions �Recorded �Confirmed �Last Taken �Type
atorvastatin 80 mg tablet 80 mg PO HS High cholesterol 04/04/22 11/12/24 Unknown History
bisoprolol fumarate 5 mg tablet 5 mg PO DAILY Blood pressure 04/04/22 11/12/24 Unknown History
insulin glargine 100 unit/mL (3 42 unit SC DAILY Diabetes 04/04/22 11/12/24 Unknown History
mL) subcutaneous pen (Basaglar
KwikPen U-100 Insulin)
latanoprost 0.005 % eye drops 1 drp RIGHT EYE HS Eye condition 04/04/22 11/12/24 Unknown History
lisinopril 5 mg tablet 5 mg PO DAILY Blood pressure 04/04/22 11/12/24 Unknown History
metformin 500 mg tablet,extended 500 mg PO TID Diabetes 04/04/22 11/12/24 Unknown History
release 24 hr
omeprazole 20 mg capsule,delayed 20 mg PO BID Gastrointestinal issue 04/04/22 11/12/24 Unknown History
release
sitagliptin phosphate 100 mg 100 mg PO DAILY Diabetes 04/04/22 11/12/24 Unknown History
tablet (Januvia)
finasteride 5 mg tablet 5 mg PO DAILY 30 days #30 tabs 04/10/22 11/12/24 Unknown Rx
tamsulosin 0.4 mg capsule 0.8 mg (2 x 0.4 mg) PO DAILY 30 04/10/22 11/12/24 Unknown Rx
days #60 caps
furosemide 20 mg tablet 20 mg PO DAILY 11/12/24 11/12/24 Unknown History
naltrexone 50 mg tablet 25 mg PO DAILY 11/12/24 11/12/24 Unknown History
potassium chloride 20 mEq 20 meq PO DAILY 11/12/24 11/12/24 Unknown History
tablet,extended release
repaglinide 1 mg tablet 1 mg PO TID 11/12/24 11/12/24 Unknown History
spironolactone 25 mg tablet 12.5 mg PO BID 11/12/24 11/12/24 Unknown History
Review of Systems
-
Unable to Obtain full review of systems at this time due to: Acuity and Patient Intubation
Vitals / Labs / Diagnostic Testing
Vital Signs
Temp Pulse Resp BP Pulse Ox
97.4 F 56 20 91/68 99
11/13/24 10:00 11/13/24 10:00 11/13/24 10:00 11/13/24 07:00 11/13/24 10:00
Laboratory Results
11/12/24 11/12/24 11/12/24
17:49 19:09 22:55
PT 14.2
INR 1.06
APTT 28.1
pH 7.19 L* 7.19 L* 7.35
pCO2 47 57 H 36
pO2 200 H 86 217 H
HCO3 18.0 L 21.8 19.9 L
O2 Delivery Level
11/13/24 11/13/24 11/13/24
00:41 02:29 05:42
PT 14.4 13.8
INR 1.09 1.03
APTT 45.0 H 37.9 H 39.2 H
pH 7.42
pCO2 33 L
pO2 95
HCO3 21.4
O2 Delivery Level Vent
11/13/24
08:20
PT
INR
APTT 45.0 H
pH
pCO2
pO2
HCO3
O2 Delivery Level
Diagnostic Testing:
Physical Exam
-
HEENT: Normocephalic, Anicteric and Other (ETT in place)
Cardiovascular: S1/S2, Peripheral Edema (negative) and Other (Bradycardic)
Respiratory: Wheeze (negative), Rales (bilateral), Rhonchi (negative), Non-Labored Respirations and Other (Mechanical BS heard bilaterally)
GI: Soft, Distended (Abdominal obesity), Non Tender and Other (Hypoactive BS)
Neurology: Tremors (negative), Other (Sedated) and Other (Intact gag/cough reflex, intact corneal reflexes bilaterally, pupils 2 mm bilaterally and sluggish)
Skin: Dry and Other (Cold to touch due to overlying cooling pads)
General: Respiratory Distress (negative), Fever (negative) and Sweats (negative)
Assessment
-
Assessment: 69-year-old male with a past medical history of DM type II on insulin, hypertension, GERD, and BPH who presented with cardiac arrest. He had passed out in the parking lot after going target-shooting with his and family friend, and
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 His family started CPR on him but his body positioning was difficult in the car so they grabbed someone from inside a store and they continued CPR until EMS arrived. CPR was reportedly
started immediately. EMS said initial rhythm was VF, and delivered 5 shocks, 4mg of epinephrine, 150 mg lidocaine and 2 g of magnesium for reported torsades de pointes. He was intubated in the field with ROSC obtained and then brought here to
ER. He was afebrile to 97.8 �F with HR 122, respiratory rate 28, BP 121/96 and saturating 98% on room air. Initial labs showed WBC 15.2, Hb 13.8, INR 1.06, initial blood gas 7.19/47/200/99.6%, creatinine 1.6, lactate 7.2, AST 285, ALT 359,
troponin 0.023, proBNP 638, TSH 2.92. He was making movements but unclear if they were purposeful, although he did find a way to push out the ETT with his tongue, which required reintubation in the ER. Initial CXR showed upper lobe patchy
opacities, and initial CT head showed no acute intracranial abnormality. CTA chest, CT abdomen/pelvis showed no evidence of an acute PE, aortic aneurysm or dissection, with multiple coastal cartilage + rib fractures, moderate diffuse bilateral
dependent consolidation with scattered patchy airspace opacities in the upper lung meehan, with no acute inflammatory process in the abdomen or pelvis. In the ER he was sedated with propofol + fentanyl drips, given bicarb x 1 amp, metoprolol 5 mg
and aspirin 300 mg. Patient started on hypothermic protocol, and admitted to the ICU for further care with personal lines appraiser services consulted for additional management/recommendations.
Chronic conditions PROCESS IMPROVEMENT SPECIALIST: Chronic HFrEF, A-fib not on AC s/p PVI + DCCV, CAD s/p stents x 4 (placed 11/2007), hypertension, hyperlipidemia, DM type II, obesity, HUANG, BPH, GERD, glaucoma, allergies, bladder stones
Impression:
#[id number] cardiac arrest
#Acute respiratory failure with hypoxia + hypercapnia now on mechanical ventilation (intubated in the field on 11/12/2024)
#Circulatory shock likely due to sedation in the setting of suspected aspiration pneumonia and possibly UTI
#Acute on chronic HFrEF (EF now approximately 20% which has worsened from prior echo in 04/18 where EF was 35-40%)
#Leukocytosis � reactive + infectious
#Aspiration pneumonia
#Abnormal urinalysis with /30 urine WBCs and +1 leukocyte esterase with many bacteria concerning for UTI
#Acute anemia
#ALBER (appears that baseline creatinine is approximately 1.3, from 2021)
#DM type II (uncontrolled � HbA1c 8.9 from 11/12/2024) complicated by hyperglycemia now on insulin drip
#Transaminitis likely due to ischemia from cardiac arrest with prolonged downtime
#Elevated troponin likely due to CPR in the setting of cardiac arrest; unable to rule out NSTEMI
#Bilateral rib fractures due to CPR
#Obesity (BMI: 43.7)
Plan:
- Patient had collapsed and suffered an [id number] cardiac arrest with initial rhythm of V-fib as per EMS with total down-time 30-40mins; TTE now shows an acutely worsened LVEF at 20%
- Initial CTA chest showed bilateral consolidation with opacification in the upper lobes, bronchial wall thickening, and bilateral lower lobe atelectasis; no acute PE seen & PA trunk diameter: 31mm
- Most likely cardiac etiology given his significant cardiac history; initial EKG did not show evidence of STEMI, although EKG from evening of 4/18 showed PVCs, sometimes doublets
- Continue with heparin drip + ASA for presumed ACS; his LDL is already <55 (18)
- Depending on his recovery he will likely need a left heart catheterization for ischemic evaluation
- Continue amiodarone gtt and monitor for arrhythmias on telemetry
- Replete electrolytes with K>4, Mg>2
- He follows with Dr. Hernandez with [facility] as an outpatient
- Continue with mechanical ventilation and hypothermic protocol, avoiding fever at all costs
- Adjust FiO2 + PEEP to maintain SpO2 >94%
- Maintain plateau pressure <30
- Continue aspiration precautions
- Oropharyngeal + deep ETT suctioning as needed
- Daily CXR
- Vent adjustments as needed throughout hypothermic protocol based on blood gases
- End-tidal CO2 should be applied
- Start DuoNebs BID (RN noticed he was wheezing earlier this AM); continue prn DuoNebs as well (currently not bronchospastic for my exam)
- We should be minimizing sedation to allow us to prognosticate easier, especially in the setting of his obesity + ALBER
- He was trying to remove the endotracheal tube in the ER hence sedation was required for his continued care
- Neurology consulted and recommendations appreciated
- Initial CT head on 11/12/2024 showed no acute intracranial abnormality; depending on his recovery we will need additional imaging after he is rewarmed
- Recommend EEG
- Start antibiotics given concern for aspiration pneumonia
- Check blood cultures, sputum cultures, urine antigens for Legionella + strep pneumonia and MRSA swab
- Maintain MAP>65 with vasopressors and wean down as tolerated
- Hold home anti-hypertensives for now
- Defer starting GDMT to cardiology once shock state resolves
- Trend LFTs
- Trend sCr and strict I/O; renally dose all meds/ABx
- Maintain euglycemia with goal BG 140-180 with insulin drip
- Trend H/H and transfuse if needed to keep Hb>7g/dL; keep plt>20k
- PPI (home med and also needed for stress ulcer prophylaxis)
- DVT ppx: Heparin gtt
I discussed goals of care briefly with the family, and for now they want to continue full medical management. We did not discuss long-term plans if he were not to wake up, would like tracheostomy + PEG. Considering that the patient was very active
normally, my sense is that he would not have wanted to be in a long-term shelter facility trached and pegged. This will be an ongoing discussion going forward.
Continue ICU level care for this critically ill patient.
Critical care statement: A total of 48 minutes of critical care time was provided for this patient today. This includes management of unstable vital signs, evaluation of the patient at bedside, reviewing the patient's pertinent medical records
including radiographs, microbiology, laboratory evaluations, and discussion with primary team, consultants, pharmacy, nutrition, physical therapy, case management, charge nurse, critical care nursing, and respiratory therapy.
Data:
CT head/: No acute intracranial abnormality noted.
CTA chest, CT abdomen/pelvis with IV contrast 11/12/2024:
Respiratory motion degradation. No filling defect to indicate pulmonary embolism with confidence to the proximal subsegmental divisions of the pulmonary arteries.
No aortic aneurysm or dissection.
No pneumothorax.
Costal cartilage and rib fractures, as described. Trace focus of air in the anterior lower left pericardial fat.
Moderate diffuse bilateral dependent consolidation, likely atelectasis. Mild asymmetric disproportionate consolidation in the posterior left upper lobe. Possible pneumonia. Scattered patchy mild airspace opacity in the upper lungs, likely related to
hypoinflation.
No acute inflammatory process within the abdomen or pelvis.
No hydronephrosis or obstructive uropathy. Bilateral renal cysts.
Mild distal abdominal aortic ectasia measuring up to 3.4 cm, without significant change. No adenopathy.
Mild diverticulosis. No acute diverticulitis. No bowel obstruction.
[2024-11-13 08:26] LABS: HDL Cholesterol 25 mg/dl; LDL Cholesterol, Calculated 18 mg/dl; Total Cholesterol 80 mg/dl (50-199); Triglyceride 189 mg/dl (10-149); Very Low Density Lipoprotein 37 mg/dl (0-30)
--- NOTE | 2024-11-13 08:29 | W.PN.HOSP.TC ---
Today's Communication/Plan
-
finish targeted temp management
wean levophed to off
supportive care
apprec cards/environmental compliance specialist
Assessment / Plan
Assessment / Plan
pt is a 69 year old male
Witnessed Cardiac Arrest due to presumed Ventricular Fibrillation with CPR-- Reported V-Fib on initial tracings in patient with known heart disease/cardiomyopathy--cont amiodarone--on targeted temp protocol--cont sedation--wean levophed if
able--Aggressive avoidance of fever. Note that patient was restless / moving about upon arrival to the ED--ECHO with EF 20% (down from 35-40% in 2022)--likely will need cardiac cath at some point this coming week and possible defibrillator--apprec
cards/environmental compliance specialist
Lactic Acidosis/Abnormal LFTs--likely from cardiogenic shock from cardiac arrest--lactate already trending down (2.4 from 7.2)--Hold on diuresis for now.
ASCVD - s/p prior stents - most recent about 20y ago per -- No recent issues with chest pain, exertional dyspnea, etc-- EKG with non-specific ST changes but no evident ST elevations noted-- IV heparin, daily ASA, etc.
Chronic HFrEF--LVEF = 20% today compared with 35-40% in 2022--CXR shows some degree of pulmonary edema - but no rales appreciated on exam--Will likely require IV diuresis once BP stabilizes.
Paroxysmal Atrial Fibrillation--s/p cardioversions and ablations- -Currently in sinus rhythm- - Not on any antiarrhythmic medications. Patient has declined OAC in the past.
Essential Hypertension--hold meds as needed--restart as able pending BP--wean levophed to off
Type 2 DM-- Current hyperglycemia likely secondary to acute event-- notes that glucose has been well-controlled recently-- Continue basal insulin at about 1/2 dose-- Cover with SSI as needed-- Update A1C.
Obesity due to excess calories--affects all aspects of care- - Encourage healthy diet and activity as able for goal of weight loss.
HUANG on CPAP--Currently on vent support - resume nightly CPAP after extubated.
BPH--Fontenot placed in the ED-- Patient scheduled for TURP in December.
DVT Proph--On therapeutic heparin.
Code Status: Full
Total Critical Care Time 31 minutes. I was immediately available to the patient and staff. I personally examined, reviewed labs, diagnostic images/reports, interpretations, treatment plans, discussed patient care with other providers and family
or caregivers (if patient is unable to make decisions), entered orders as appropriate and documented the medical record.
updated family at bedside
Anticipated Discharge: > 48 hours
Subjective/Interval History
-
Date of Service: November 13, 2024
pt on cooling protocol--sedated and intubated
Objective Data
-
Labs:
Laboratory Results
11/12/24 11/13/24 11/13/24
22:55 00:41 02:29
WBC 17.9 H
Hgb 12.8 L
Hct 38.0 L
Plt Count 248
PT 14.4
INR 1.09
APTT 45.0 H 37.9 H
HCO3 19.9 L
Sodium 137
Potassium 4.9
Chloride 104
Carbon Dioxide 22
BUN 32 H
Creatinine 1.5 H
Glucose 318 H
Calcium 9.9
Total Bilirubin 1.0
AST 293 H
ALT 319 H
Alkaline Phosphatase 77
11/13/24 11/13/24 11/13/24
05:42 07:48 08:20
WBC 13.8 H
Hgb 12.2 L
Hct 35.5 L
Plt Count 224
PT 13.8
INR 1.03
APTT 39.2 H Pending
HCO3 21.4
Sodium Cancelled Cancelled Pending
Potassium Cancelled Cancelled Pending
Chloride Cancelled Cancelled Pending
Carbon Dioxide Cancelled Cancelled Pending
BUN Cancelled Cancelled Pending
Creatinine Cancelled Cancelled Pending
Glucose Cancelled Cancelled Pending
Calcium Cancelled Cancelled Pending
Total Bilirubin Cancelled Cancelled Pending
AST Cancelled Cancelled Pending
ALT Cancelled Cancelled Pending
Alkaline Phosphatase Cancelled Cancelled Pending
11/13/24 11/13/24
12:00 18:00
WBC Pending
Hgb Pending
Hct Pending
Plt Count Pending
PT
INR
APTT
HCO3 Pending
Sodium Pending
Potassium Pending
Chloride Pending
Carbon Dioxide Pending
BUN Pending
Creatinine Pending
Glucose Pending
Calcium Pending
Total Bilirubin Pending
AST Pending
ALT Pending
Alkaline Phosphatase Pending
Vital Signs:
max temp for 24 hours
11/12/24
21:10
Temp 97.8 F
Vital Signs
Temp Pulse Resp BP Pulse Ox
97.7 F 65 20 91/68 100
11/13/24 08:00 11/13/24 08:00 11/13/24 08:00 11/13/24 07:00 11/13/24 08:13
I&O
11/12/24 11/13/24 11/14/24
06:59 06:59 06:59
Intake Total 1742.7 / 1899.3 504.7 / 504.7
Output Total 505 / 515 35 / 35
Balance 1237.7 / 1384.3 469.7 / 469.7
Review of Systems
-
Unable to obtain full review of systems at this time due to: Patient Intubation
Physical Exam
-
General: Well Developed, Well Nourished and Intubated
HEENT: Normocephalic and Atraumatic
Respiratory: Clear to Auscultation; Negative Wheezes, Rales, Rhonchi or Crackles
Cardiac: Regular Rhythm and S1/S2; Negative Murmur
GI: Soft, Nontender, Nondistended and Normal Bowel Sounds
Genito-urinary: Fontenot
Musculoskeletal: No Clubbing, No Cyanosis and No Edema
Neuro: Negative Awake or Alert
Psych: Calm
--- NOTE | 2024-11-13 08:31 | PTCARENOTE ---
pt received this am - ett to vent- TTM protocol in progress, see flowsheet. pt remains on propofol and fentanyl for sedation. heparin, amio, levo and insulin gtts all continue- see flowsheets. left radial miranda zeroed and functioning. pt left pupil
2 and reactive, right 3 and reactive- Dr. Interiano aware. pt with positive cough and gag,withdrawals to pain. in nsr with bbb and first degree block on monitor. left nare ngt at 68 cm. schroeder draining yellow urine. all safety precautions in place.
all care explained as provided- verbalized understanding to education.
--- NOTE | 2024-11-13 08:46 | CON.NEURO ---
Consultation
Order
Date of Consultation: 11/13/24
Requesting Provider: Jason Benedict CRNP
Reason for Consult: Status postcardiac arrest
Neurology Consultation Note.
HPI: This is an a 69-year-old man who presented to [facility] on November 12, 2024 [id number] witnessed VF cardiac arrest. The patient underwent 30-35 minutes ACLS in the field prior to ROSC. Received 5 total shocks, lidocaine
bolus, multiple rounds of epinephrine, and 2 mg magnesium. Intubated in the field.
CT head wo contrast�no acute abnormalities
Labs: WBCs�15.2, platelets�249, PTT�72.2, normal sodium, TSH, creatinine�1.4, normal calcium, hemoglobin A1c�8.9, CK�325, LDL�18.
PMH: CAD, PA-Fib(s/p PVI), CHF (EF 35% in 2021), BMI 43, HTN, DLP, DM, GERD, SANDRA, obstructive uropathy
PSH: PTCI, cystolitholopaxy/stent placement, BL TKA,
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
FH: Noncontributory to current presentation
All: Labetalol, metoprolol, penicillin
ROS: Unable due to encephalopathy
General: Sedated, intubated, hypothermic
Cardio: Regular rate
Mental Status: Comatose
Cranial Nerves: Pupils are 2.5 mm, nonreactive. Negative oculocephalics, corneals, gag. RR=vent
Motor: Flaccid quadriplegia
Reflexes: Limited due to body habitus. No clonus at the ankles
Sensory: Unable to assess
Coordination: No tremors myoclonic movements
Gait: unable
Assessment and Plan:
I. Multifactorial encephalopathy (toxic, hypoxic, metabolic)
II. PA A-fib
III. S/p cardiac arrest
- Continue Telemetry monitoring
-Avoid cerebral hypoperfusion
- Please repeat CT head wo contrast after rewarming has been completed
- Continue aspirin 81 mg once a day
- The case was discussed with patient's spouse
- Will follow
I personally reviewed all radiology and labs along with past medical records pertinent to current medical problems. Total time spent in patient care is 60 minutes.
Thank you for allowing us to participate in the care of this patient. We will continue to follow. Please do not hesitate to contact us with any questions or concerns.
Subjective/Objective
Subjective Data
Date of Service: November 13, 2024
Objective Data
Vital Signs
Temp Pulse Resp BP Pulse Ox
36.5 C 65 20 91/68 100
11/13/24 08:31 11/13/24 08:00 11/13/24 08:00 11/13/24 07:00 11/13/24 08:13
PT 13.8 Sec (11.4-14.6) 11/13/24 05:42
INR 1.03 11/13/24 05:42
APTT 39.2 Sec (23.4-35.0) H 11/13/24 05:42
Sodium Cancelled 11/13/24 07:48
Potassium Cancelled 11/13/24 07:48
BUN Cancelled 11/13/24 07:48
Glucose Cancelled 11/13/24 07:48
Calcium Cancelled 11/13/24 07:48
Phosphorus Cancelled 11/13/24 07:48
Ope-J-Plbdqucafoa Pept 638 pg/ml 11/12/24 17:49
LDL Cholesterol, Calc 18 mg/dl 11/13/24 07:48
Ur Buprenorphine Negative (Negative) 11/12/24 17:49
Patient Allergies
bee venom protein (honey bee) Allergy (Verified 11/12/24 19:03)
Swelling
Penicillins Allergy (Verified 11/12/24 19:03)
Rash
labetalol Adverse Reaction (Verified 11/12/24 19:03)
Nausea / Vomiting
metoprolol Adverse Reaction (Verified 11/12/24 19:03)
Nausea / Vomiting
Medications
-
Active Medications
Generic Name Dose Route Start Last Admin
Trade Name Freq PRN Reason Stop Dose Admin
Acetaminophen 650 mg 11/13/24 00:00 11/13/24 06:10
Acetaminophen (Oral Solution) 650 Mg/20.3 Ml Cup TUBE 11/17/24 00:00 650 mg
Q6 FLO Administration
Aspirin 81 mg 11/14/24 08:00
Aspirin 81 Mg Chewable Tablet TUBE 12/12/24 07:59
DAILY FLO
Buspirone HCl 30 mg 11/13/24 00:00 11/13/24 07:25
Buspirone 15 Mg Tablet TUBE 12/11/24 00:00 30 mg
Q8 FLO Administration
Carboxymethylcellulose Sodium 1 drops 11/13/24 08:00 11/13/24 07:25
Carboxymethylcellulose Ophth Gel (Celluvisc) Droperette OPHTH 12/11/24 07:59 1 drops
BID FLO Administration
Cisatracurium Besylate 20 mg 11/12/24 20:36
Cisatracurium (2 Mg/Ml) 20 Mg/10 Ml Vial IV 11/15/24 20:37
Q1HPRN PRN
BSAS >/= 1
Protocol
Dextrose 12.5 grams 11/12/24 20:45
Dextrose 50% (0.5 Grams/Ml) 50 Ml Syringe IV 12/10/24 20:44
[id number] PRN
Blood Glucose < 70
Fentanyl Citrate 50 mcg 11/12/24 20:36 11/13/24 01:11
Fentanyl (50 Mcg/Ml) 100 Mcg/2 Ml Ampul IV 11/26/24 20:35 50 mcg
[id number] PRN Administration
see protocol
Protocol
Glucagon 1 mg 11/12/24 20:27
Glucagon 1 Mg Vial IM 12/10/24 20:26
PRN PRN
hypoglycemia
Protocol
Heparin Sodium 25,000 units in 250 mls @ 0 mls/hr 11/12/24 18:45 11/12/24 20:36
Heparin 21486 Units/250 Ml IV 250 mls
PER PROTOCOL FLO Administration
Protocol
Per Protocol
Norepinephrine Bitartrate 4 mg in 250 mls @ 0 mls/hr 11/12/24 20:30 11/13/24 06:09
Levophed IV 250 mls
PER PROTOCOL FLO Administration
Protocol
Per Protocol
Fentanyl Citrate 1,000 mcg in 100 mls @ 0 mls/hr 11/12/24 20:45
Sublimaze IV
PER PROTOCOL FLO
Protocol
Per Protocol
Propofol 1,000,000 mcg in 100 mls @ 0 mls/hr 11/12/24 20:45 11/13/24 08:23
Diprivan IV 100 mls
PER PROTOCOL FLO Administration
Protocol
Per Protocol
Cisatracurium Besylate 200 mg/ 200 mls @ 0 mls/hr 11/12/24 20:45
Sodium Chloride 100 ml/ IV
Device PER PROTOCOL FLO
Protocol
Per Protocol
Insulin Human Regular 100 units in 100 mls @ 0 mls/hr 11/12/24 20:45 11/13/24 08:01
Novolin R Insulin Infusion IV 100 mls
PER PROTOCOL FLO Administration
Protocol
Per Protocol
Amiodarone HCl 900 mg/ 518 mls @ 0 mls/hr 11/13/24 00:45
Dextrose/Water IV
PER PROTOCOL FLO
Protocol
Per Protocol
Pantoprazole Sodium 40 mg 11/12/24 20:00 11/13/24 07:26
Pantoprazole Sodium 40 Mg/10 Ml Vial IV 12/10/24 19:59 40 mg
BID FLO Administration
Polyethylene Glycol 17 grams 11/13/24 08:00 11/13/24 07:25
Polyethylene Glycol Powder 17 Grams Packet TUBE 12/11/24 07:59 17 grams
DAILY FLO Administration
Sodium Chloride 0 flush 11/12/24 21:00
Sodium Chloride 0.9% (Flush) Syringe IV 12/10/24 20:59
PER PROTOCOL FLO
Home Medications
�Medication �Instructions �Recorded
atorvastatin 80 mg tablet 80 mg PO HS High cholesterol 04/04/22
bisoprolol fumarate 5 mg tablet 5 mg PO DAILY Blood pressure 04/04/22
insulin glargine 100 unit/mL (3 42 unit SC DAILY Diabetes 04/04/22
mL) subcutaneous pen (Basaglar
KwikPen U-100 Insulin)
latanoprost 0.005 % eye drops 1 drp RIGHT EYE HS Eye condition 04/04/22
lisinopril 5 mg tablet 5 mg PO DAILY Blood pressure 04/04/22
metformin 500 mg tablet,extended 500 mg PO TID Diabetes 04/04/22
release 24 hr
omeprazole 20 mg capsule,delayed 20 mg PO BID Gastrointestinal issue 04/04/22
release
sitagliptin phosphate 100 mg 100 mg PO DAILY Diabetes 04/04/22
tablet (Januvia)
finasteride 5 mg tablet 5 mg PO DAILY 30 days #30 tabs 04/10/22
tamsulosin 0.4 mg capsule 0.8 mg (2 x 0.4 mg) PO DAILY 30 04/10/22
days #60 caps
furosemide 20 mg tablet 20 mg PO DAILY 11/12/24
naltrexone 50 mg tablet 25 mg PO DAILY 11/12/24
potassium chloride 20 mEq 20 meq PO DAILY 11/12/24
tablet,extended release
repaglinide 1 mg tablet 1 mg PO TID 11/12/24
spironolactone 25 mg tablet 12.5 mg PO BID 11/12/24
Vital Signs and Labs
-
Vital Signs and Labs:
Vital Signs
Temp Pulse Resp BP Pulse Ox
35.9 C L 57 20 91/68 100
11/13/24 15:00 11/13/24 15:00 11/13/24 15:00 11/13/24 07:00 11/13/24 15:21
PT 13.8 Sec (11.4-14.6) 11/13/24 05:42
INR 1.03 11/13/24 05:42
APTT 72.2 Sec (23.4-35.0) H 11/13/24 14:25
Sodium 137 mmol/L (135-145) 11/13/24 14:25
Potassium 3.9 mmol/L (3.5-5.1) 11/13/24 14:25
BUN 28 mg/dl (9-20) H 11/13/24 14:25
Glucose 111 mg/dl (70-99) H 11/13/24 14:25
Calcium 8.6 mg/dl (8.4-10.2) 11/13/24 14:25
Phosphorus 4.4 mg/dl (2.5-4.5) 11/13/24 14:25
Ztr-W-Pkruwgvhrsu Pept 638 pg/ml 11/12/24 17:49
LDL Cholesterol, Calc 18 mg/dl 11/13/24 07:48
Ur Buprenorphine Negative (Negative) 11/12/24 17:49
Medications
-
Medications:
Generic Name Dose Route Start Last Admin
Trade Name Freq PRN Reason Stop Dose Admin
Acetaminophen 650 mg 11/13/24 00:00 11/13/24 10:55
Acetaminophen (Oral Solution) 650 Mg/20.3 Ml Cup TUBE 11/17/24 00:00 650 mg
Q6 FLO Administration
Albuterol/Ipratropium 3 ml 11/13/24 20:00
Ipratropium 0.5/Albuterol 3 Mg (3 Ml Ampul) INH
R BID FLO
Protocol
Albuterol/Ipratropium 3 ml 11/13/24 11:29
Ipratropium 0.5/Albuterol 3 Mg (3 Ml Ampul) INH
R Q4HPRN PRN
SOB/Wheezing
Protocol
Aspirin 81 mg 11/13/24 09:31 11/13/24 09:55
Aspirin 81 Mg Chewable Tablet TUBE 12/11/24 09:30 81 mg
DAILY FLO Administration
Buspirone HCl 30 mg 11/13/24 00:00 11/13/24 07:25
Buspirone 15 Mg Tablet TUBE 12/11/24 00:00 30 mg
Q8 FLO Administration
Carboxymethylcellulose Sodium 1 drops 11/13/24 08:00 11/13/24 07:25
Carboxymethylcellulose Ophth Gel (Celluvisc) Droperette OPHTH 12/11/24 07:59 1 drops
BID FLO Administration
Cisatracurium Besylate 20 mg 11/12/24 20:36
Cisatracurium (2 Mg/Ml) 20 Mg/10 Ml Vial IV 11/15/24 20:37
Q1HPRN PRN
BSAS >/= 1
Protocol
Dextrose 12.5 grams 11/12/24 20:45
Dextrose 50% (0.5 Grams/Ml) 50 Ml Syringe IV 12/10/24 20:44
[id number] PRN
Blood Glucose < 70
Fentanyl Citrate 50 mcg 11/12/24 20:36 11/13/24 14:41
Fentanyl (50 Mcg/Ml) 100 Mcg/2 Ml Ampul IV 11/26/24 20:35 50 mcg
[id number] PRN Administration
see protocol
Protocol
Glucagon 1 mg 11/12/24 20:27
Glucagon 1 Mg Vial IM 12/10/24 20:26
PRN PRN
hypoglycemia
Protocol
Heparin Sodium 25,000 units in 250 mls @ 0 mls/hr 11/12/24 18:45 11/13/24 15:00
Heparin 01919 Units/250 Ml IV 250 mls
PER PROTOCOL FLO Administration
Protocol
Per Protocol
Norepinephrine Bitartrate 4 mg in 250 mls @ 0 mls/hr 11/12/24 20:30 11/13/24 10:55
Levophed IV 250 mls
PER PROTOCOL FLO Administration
Protocol
Per Protocol
Fentanyl Citrate 1,000 mcg in 100 mls @ 0 mls/hr 11/12/24 20:45 11/13/24 14:40
Sublimaze IV 100 mls
PER PROTOCOL FLO Administration
Protocol
Per Protocol
Propofol 1,000,000 mcg in 100 mls @ 0 mls/hr 11/12/24 20:45 11/13/24 10:55
Diprivan IV 100 mls
PER PROTOCOL FLO Administration
Protocol
Per Protocol
Cisatracurium Besylate 200 mg/ 200 mls @ 0 mls/hr 11/12/24 20:45
Sodium Chloride 100 ml/ IV
Device PER PROTOCOL FLO
Protocol
Per Protocol
Insulin Human Regular 100 units in 100 mls @ 0 mls/hr 11/12/24 20:45 11/13/24 13:20
Novolin R Insulin Infusion IV 100 mls
PER PROTOCOL FLO Administration
Protocol
Per Protocol
Amiodarone HCl 900 mg/ 518 mls @ 0 mls/hr 11/13/24 00:45
Dextrose/Water IV
PER PROTOCOL FLO
Protocol
Per Protocol
Ampicillin Sodium/Sulbactam 120 mls @ 240 mls/hr 11/13/24 12:00 11/13/24 12:17
Sodium 3 gm/ Sodium Chloride IV 120 mls
Q6H FLO Administration
Pantoprazole Sodium 40 mg 11/12/24 20:00 11/13/24 07:26
Pantoprazole Sodium 40 Mg/10 Ml Vial IV 12/10/24 19:59 40 mg
BID FLO Administration
Polyethylene Glycol 17 grams 11/13/24 08:00 11/13/24 07:25
Polyethylene Glycol Powder 17 Grams Packet TUBE 12/11/24 07:59 17 grams
DAILY FLO Administration
Sodium Chloride 0 flush 11/12/24 21:00
Sodium Chloride 0.9% (Flush) Syringe IV 12/10/24 20:59
PER PROTOCOL FLO
Home Medications
-
Home Medications
atorvastatin 80 mg tablet 80 mg PO HS High cholesterol 04/04/22
bisoprolol fumarate 5 mg tablet 5 mg PO DAILY Blood pressure 04/04/22
insulin glargine 100 unit/mL (3 mL) subcutaneous pen (Basaglar KwikPen U-100 Insulin) 42 unit SC DAILY Diabetes 04/04/22
latanoprost 0.005 % eye drops 1 drp RIGHT EYE HS Eye condition 04/04/22
lisinopril 5 mg tablet 5 mg PO DAILY Blood pressure 04/04/22
metformin 500 mg tablet,extended release 24 hr 500 mg PO TID Diabetes 04/04/22
omeprazole 20 mg capsule,delayed release 20 mg PO BID Gastrointestinal issue 04/04/22
sitagliptin phosphate 100 mg tablet (Januvia) 100 mg PO DAILY Diabetes 04/04/22
finasteride 5 mg tablet 5 mg PO DAILY 30 days #30 tabs 04/10/22
tamsulosin 0.4 mg capsule 0.8 mg (2 x 0.4 mg) PO DAILY 30 days #60 caps 04/10/22
furosemide 20 mg tablet 20 mg PO DAILY 11/12/24
naltrexone 50 mg tablet 25 mg PO DAILY 11/12/24
potassium chloride 20 mEq tablet,extended release 20 meq PO DAILY 11/12/24
repaglinide 1 mg tablet 1 mg PO TID 11/12/24
spironolactone 25 mg tablet 12.5 mg PO BID 11/12/24
[2024-11-13 08:54] LABS: Glucose - Point of Care 164 mg/dl (70-99)
[2024-11-13 08:59] LABS: ALT (SGPT) 283 U/L (0-50); AST (SGOT) 171 U/L (17-59); Albumin 3.8 g/dl (3.5-5.0); Alkaline Phosphatase 63 U/L (38-126); Blood Urea Nitrogen 32 mg/dl (9-20); Calcium 9.1 mg/dl (8.4-10.2); Carbon Dioxide 22 mmol/L (22-30); Chloride 104 mmol/L (98-107); Direct Bilirubin 0.3 mg/dl (0.0-0.4); Estimated Creatinine Clearance 76 ml/min; Glucose 198 mg/dl (70-99); Magnesium 2.2 mg/dl (1.6-2.3); Phosphorus 3.5 mg/dl (2.5-4.5); Potassium 4.3 mmol/L (3.5-5.1); Sodium 138 mmol/L (135-145); Total Bilirubin 0.7 mg/dl (0.2-1.3); Total Protein 6.1 g/dl (6.3-8.2); eGFR 53.74
[2024-11-13 09:03] LABS: Glycohemoglobin (HgbA1c) 8.9 % (4.0-5.6)
[2024-11-13 09:28] LABS: Total CK 355 U/L (55-170)
[2024-11-13 09:34] VITALS: BMI 43.7
--- NOTE | 2024-11-13 09:39 | W.PN.CD ---
Today's Communication / Plan
-
Continue targeted temperature management
Heparin and aspirin for possible ACS
Norepinephrine for goal MAP greater than 65
Amiodarone for rhe-tx-cxjlcdky V-fib arrest
Coronary angiography once stabilized
Impression / Plan
-
69-year-old male with history of CHF (EF 35% in 2021), atrial fibrillation s/p PVI (2005, 2015), CAD with reported remote stenting in 2006, insulin-dependent diabetes, obesity presents to the emergency room via EMS status post out of hospital
cardiac arrest.
Bxy-ba-avphrdsq arrest
-Occurred while getting into the car. Became pale and unresponsive. Bystander CPR started immediately. Initial rhythm VF. 30-35 minutes ACLS in the field prior to ROSC. Received 5 total shocks, lidocaine bolus, multiple rounds of epinephrine,
and 2 mg magnesium. Intubated in the field. Reportedly had some mental status after ROSC.
-Most likely cardiac in nature given his significant past cardiac history and VF. Interestingly troponin 1.3 -> 1.4 after 35 minutes of CPR so this may have been arrhythmic as opposed to ischemic.
-Emergent LHC deferred given lack of definitive ST elevations, no ongoing arrhythmias or evidence of cardiogenic shock
-Continue targeted temperature management
-Coronary angiography once stabilized. Maybe Friday.
-Continue medical management for presumed ACS with heparin and aspirin.
-Continue Amiodarone infusion. Triplets on tele, no longer runs of NSVT
Hypotension
-Requiring norepinephrine. Suspect due to sedation as he has high sedation needs with propofol/fentanyl. Cardiogenic shock is also possible.
-TTE/: Extremely technically limited study, EF 20%
-Continue norepinephrine for goal MAP >65 mmHg
Troponin elevation
-Troponin 1.3 -> 1.4 after 35 minutes of CPR. ECG no STEMI. May be due to shocks or initial ischemic event causing OOH arrest
-Continue to trend with ECGs
-ACS treatment as above
HFrEF (EF 20%), chronic
-Follows with Dr. Muñoz from [facility] ([place]). Records requested.
-Was on BB, ACEi, and [place] as an outpatient
-Add back GDMT when able
-Hold diuresis as he is requiring Norepinephrine
CAD with remote stenting
-Continue ASA
-Resume statin once LFT abnormalities resolved
Paroxysmal atrial fibrillation status post PVI
-Declined anticoagulation in the past
-Outpatient cardiology records requested
Diabetes: Management per primary
CCT: 51 minutes
Subjective: Did well overnight. Telemetry reviewed which shows PVCs and the occasional triplet but no NSVT longer than 3 beats. He is intubated and sedated this morning.
Physical Exam
Vital Signs/Labs
Vital Signs
Temp Pulse Resp BP Pulse Ox
96.9 F L 65 20 91/68 100
11/13/24 08:53 11/13/24 08:00 11/13/24 08:00 11/13/24 07:00 11/13/24 08:13
11/12/24 11/13/24 11/14/24
06:59 06:59 06:59
Actual Weight 340 lb 2.772 oz
PT 13.8 Sec (11.4-14.6) 11/13/24 05:42
INR 1.03 11/13/24 05:42
APTT 45.0 Sec (23.4-35.0) H 11/13/24 08:20
Magnesium 2.2 mg/dl (1.6-2.3) 11/13/24 08:20
Triglycerides 189 mg/dl (10-149) H 11/13/24 07:48
LDL Cholesterol, Calc 18 mg/dl 11/13/24 07:48
VLDL Cholesterol, Calc 37 mg/dl (0-30) H 11/13/24 07:48
HDL Cholesterol 25 mg/dl 11/13/24 07:48
11/12/24
17:49
Zcc-J-Vqtfndzpsdq Pept 638
LAB Results
11/12/24 11/12/24 11/13/24
17:49 20:27 00:41
Troponin I 0.023 Cancelled 1.330 H* D
11/13/24
02:28
Troponin I 1.380 H*
Physical Exam
Constitutional: Comfortable
Cardiovascular: Rhythm & rate is regular, Pedal edema is absent, S1S2 is normal and Murmur/rub/gallop absent
Respiratory: Other (Breathing comfortably on ventilator)
Neuro/Psych: Other (Sedated)
Data Reviewed
-
Date of Service: November 13, 2024
Medical Decision Making: Reviewed Test Results, Independent Historian Assessment, Test Interpretation and Review of Case with other Provider
EKG: Tracing Personally Visualized and interpreted
Echo: Report Reviewed by me
X-Ray/CT/US/MRI/NUC/PET: Report Reviewed by me
Labs: Labs Reviewed by me
Old Records: Requested
Critical Care Time (in minutes): 51
[2024-11-13 09:54] LABS: CKMB 10.1 ng/ml (0.0-3.4)
[2024-11-13] MEDS: LOW STRENGTH ASPIRIN 81 MG TUBE (09:55)
[2024-11-13] MEDS: MAGNESIUM SULFATE 100 IV (09:55)
[2024-11-13 10:02] LABS: Glucose - Point of Care 155 mg/dl (70-99)
--- NOTE | 2024-11-13 10:13 | PTCARENOTE ---
Dr. Christianson notified pt hr in 50s, amio stopped as per order.
[2024-11-13] MEDS: DUONEB 3 ML INH ×2 (11:43→21:04)
--- NOTE | 2024-11-13 12:02 | PTCARENOTE ---
Dr. Torres at bedside- pt hr in 40s- ekg completed. bc drawn from miranda per Dr. Torres- ok for one set, aware unable to obtain peripheral. all labs sent. weaning propofol as tolerated, assessment unchanged further.
[2024-11-13 12:14] LABS: Glucose - Point of Care 113 mg/dl (70-99)
[2024-11-13] MEDS: UNASYN IV ×3 (12:17→23:40)
--- NOTE | 2024-11-13 12:28 | PTCARENOTE ---
Dr. Torres at bedside- pt hr in 40s- ekg completed. blood culture drawn from miranda per Dr. Torres- ok to send one set only, md chantell unable to obtain peripheral. all labs sent. weaning propofol and levophed as tolerated, pt noted with mild
shivering, fentanyl given per protocol. pt non-purposefully moving extremities. assessment unchanged further
[2024-11-13 12:30] LABS: Lactic Acid 1.3 mmol/L (0.7-2.0)
[2024-11-13 13:16] LABS: Platelet Count 172 10^3/uL (130-400)
[2024-11-13 13:17] LABS: % Basophils 0.4 % (0-2); % Eosinophils 0.7 % (0-6); % Immature Granulocytes 0.5 % (0-0.5); % Lymphocytes 8.8 % (20.5-51.1); % Monocytes 8.4 % (1.7-9.3); % Neutrophils 81.2 % (42.2-75.2); Absolute Eosinophils 0.1 10^3/uL (0-0.7); Absolute Immature Granulocytes 0.1 10^3/uL (0-0.05); Absolute Monocytes 0.9 10^3/uL (0.1-0.6); Hemoglobin 11.7 g/dL (13.0-18.0); Mean Corp Hgb Conc. 34.4 g/dL (33.0-37.0); Mean Corpuscular Hgb 28.1 pg (27.0-31.0); Mean Corpuscular Volume 81.5 fL (80.0-94.0); Mean Platelet Volume 10.2 fL (7.4-10.4); Nucleated Red Blood Cells % 0 % (-); Red Blood Cell Count 4.17 10^6/uL (4.70-6.10); Red Cell Dist. Width 14.6 % (11.5-14.5)
[2024-11-13 14:28] LABS: Glucose - Point of Care 116 mg/dl (70-99)
[2024-11-13] MEDS: SUBLIMAZE 100 IV ×2 (14:40→23:40)
[2024-11-13 14:49] LABS: APTT 72.2 Sec (23.4-35.0)
[2024-11-13] MEDS: HEPARIN 25000 UNITS/250 ML IV (15:00)
[2024-11-13 15:19] LABS: ALT (SGPT) 240 U/L (0-50); AST (SGOT) 113 U/L (17-59); Albumin 3.1 g/dl (3.5-5.0); Alkaline Phosphatase 55 U/L (38-126); Blood Urea Nitrogen 28 mg/dl (9-20); Calcium 8.6 mg/dl (8.4-10.2); Carbon Dioxide 19 mmol/L (22-30); Chloride 109 mmol/L (98-107); Estimated Creatinine Clearance 76 ml/min; Glucose 111 mg/dl (70-99); Magnesium 2.8 mg/dl (1.6-2.3); Phosphorus 4.4 mg/dl (2.5-4.5); Potassium 3.9 mmol/L (3.5-5.1); Sodium 137 mmol/L (135-145); Total Bilirubin 0.6 mg/dl (0.2-1.3); Total CK 325 U/L (55-170); Total Protein 5.5 g/dl (6.3-8.2); eGFR 53.74
[2024-11-13 15:40] LABS: CKMB 10.3 ng/ml (0.0-3.4)
--- NOTE | 2024-11-13 16:05 | PTCARENOTE ---
assessment unchanged. levophed weaned off. turned and repositioned, oral care provided.
[2024-11-13 16:26] LABS: Glucose - Point of Care 89 mg/dl (70-99)
[2024-11-13] MEDS: MAGNESIUM SULFATE 50 IV (16:58)
--- NOTE | 2024-11-13 17:01 | PTCARENOTE ---
pt able to open eyes to name and squeeze hand on command.
[2024-11-13 17:10] LABS: Glucose - Point of Care 106 mg/dl (70-99)
[2024-11-13 17:59] LABS: Glucose - Point of Care 176 mg/dl (70-99)
[2024-11-13 18:14] LABS: B.E. -2.5 mmol/L; HCO3 21.6 mmol/L (21-28); O2 Saturation % 99.9 % (94-98); PCO2 34 mmHg (35-48); PO2 172 mmHg (83-108); pH 7.41 (7.35-7.45)
[2024-11-13 18:27] LABS: Lactic Acid 1.2 mmol/L (0.7-2.0)
[2024-11-13 18:55] LABS: Glucose - Point of Care 197 mg/dl (70-99)
[2024-11-13] MEDS: NSS (PRESERVATIVE FREE) 10 ML IV (19:46)
[2024-11-13 19:56] LABS: Glucose - Point of Care 176 mg/dl (70-99)
--- NOTE | 2024-11-13 20:00 | PTCARENOTE ---
Received pt intubated and sedated on propofol and fentanyl gtts. TTM protocol ongoing. Flutters eyes open to name, weak hand grasps B/L. Pupils 2mm B/L, sluggish. TRAVIS weakly. Wrist restraints in place for safety. SB on tele with 1st deg and BBB. HR
50s. Weak DP and radial pulses. BP 110s/60s off pressors. L radial A line transduced and zeroed. Goal temp for TTM 96.8. Current temp 97.0. Shivering noted - PRN fent bolus given and fent gtt increased. #7.5 ETT @ 26cm , moved to center. Tolerating
A/C 20/550/+8/40%. Spo2 95%. Suctioned ETT for scant white secretions. NG tube to LIWS. Hypoactive bowel sounds. Temp sensing schroeder draining anat/orange urine. See I&O. L fem TLC with heparin gtt, fent, prop, and insulin gtt (for glycemic
protocol). Repeat labs sent. Mouth care provided
--- NOTE | 2024-11-13 20:00 | PTCARENOTE ---
Received pt intubated and sedated on propofol and fentanyl gtts. TTM protocol ongoing. Flutters eyes open to name, weak hand grasps B/L. Pupils 2mm B/L, sluggish. TRAVIS weakly. Wrist restraints in place for safety. SB on tele with 1st deg and BBB. HR
50s. Weak DP and radial pulses. BP 110s/60s off pressors. L radial A line transduced and zeroed. Goal temp for TTM 96.8. Current temp 97.0. Shivering noted - PRN fent bolus given and fent gtt increased. #7.5 ETT @ 22cm , moved to center. Tolerating
A/C 20/550/+8/40%. Spo2 95%. Suctioned ETT for scant white secretions. NG tube to LIWS. Hypoactive bowel sounds. Temp sensing schroeder draining anat/orange urine. See I&O. L fem TLC with heparin gtt, fent, prop, and insulin gtt (for glycemic
protocol). Repeat labs sent. Mouth care provided
[2024-11-13 20:09] LABS: Hematocrit 34.1 % (39.0-52.0); Hemoglobin 11.8 g/dL (13.0-18.0); Mean Corp Hgb Conc. 34.6 g/dL (33.0-37.0); Mean Corpuscular Hgb 28.4 pg (27.0-31.0); Mean Platelet Volume 10.2 fL (7.4-10.4); Platelet Count 166 10^3/uL (130-400); Red Blood Cell Count 4.16 10^6/uL (4.70-6.10); Red Cell Dist. Width 14.9 % (11.5-14.5); White Blood Cell Count 13.3 10^3/uL (4.8-10.8)
[2024-11-13 20:19] LABS: Lactic Acid 1.9 mmol/L (0.7-2.0)
[2024-11-13 20:19] LABS: APTT 74.4 Sec (23.4-35.0)
[2024-11-13 20:38] LABS: Absolute Neutrophils -Man Diff 10.9 10^3/uL (1.4-6.5); Band Neutrophils 1 % (0-3); Eosinophils 1 % (0-6); Lymphocytes 13 % (20-51); Monocytes 5 % (2-9); Normal RBC Morphology No; Platelets Checked Yes; Poikilocytosis 2+; Segmented Neutrophils 81 % (42-75)
[2024-11-13 20:39] LABS: Acanthocytes Slight; Anisocytosis Slight; Burr Cells 2+; Ovalocytes Slight; Tear Drop Red Blood Cells Slight
[2024-11-13 20:40] LABS: Total Cells Counted 100
[2024-11-13 20:44] VITALS: BMI 43.7
[2024-11-13 20:45] LABS: Total CK 331 U/L (55-170)
[2024-11-13 20:53] LABS: Glucose - Point of Care 171 mg/dl (70-99)
[2024-11-13 20:57] LABS: ALT (SGPT) 243 U/L (0-50); AST (SGOT) 103 U/L (17-59); Albumin 3.3 g/dl (3.5-5.0); Alkaline Phosphatase 61 U/L (38-126); Blood Urea Nitrogen 28 mg/dl (9-20); Calcium 8.8 mg/dl (8.4-10.2); Carbon Dioxide 16 mmol/L (22-30); Chloride 106 mmol/L (98-107); Estimated Creatinine Clearance 67 ml/min; Glucose 196 mg/dl (70-99); Magnesium 2.9 mg/dl (1.6-2.3); Phosphorus 4.9 mg/dl (2.5-4.5); Potassium 4.6 mmol/L (3.5-5.1); Sodium 135 mmol/L (135-145); Total Bilirubin 0.7 mg/dl (0.2-1.3); Total CK 327 U/L (55-170); Total Protein 5.8 g/dl (6.3-8.2); eGFR 45.78
[2024-11-13 21:08] LABS: CKMB 9.9 ng/ml (0.0-3.4)
[2024-11-13 21:20] LABS: CKMB 10.1 ng/ml (0.0-3.4)
[2024-11-13 22:07] LABS: Glucose - Point of Care 169 mg/dl (70-99)
[2024-11-13 23:04] LABS: Glucose - Point of Care 198 mg/dl (70-99)
[2024-11-13 23:49] LABS: Glucose - Point of Care 195 mg/dl (70-99)
--- NOTE | 2024-11-13 23:53 | PTCARENOTE ---
Vent alarming more often, pt. belly breathing. Pt. repositioned/pulled up in bed. PRN fentanyl given, propofol gtt increased. RT notified. Vent settings adjusted to ASV 100%MinVol, +8, 40%fio2. Spo2 99%. Pt. to begin rewarming ~0039.
[2024-11-14] VITALS (9 sets, daily range): BP systolic 114–135; BP diastolic 65–86; PULSE 96; BMI 44.9
[2024-11-14 00:29] LABS: B.E. -5.6 mmol/L; HCO3 19.3 mmol/L (21-28); O2 Saturation % 98.5 % (94-98); PCO2 35 mmHg (35-48); PO2 98 mmHg (83-108); pH 7.35 (7.35-7.45)
[2024-11-14] MEDS: SUBLIMAZE 50 MCG IV (00:32)
[2024-11-14 00:58] LABS: Glucose - Point of Care 166 mg/dl (70-99)
[2024-11-14 02:08] LABS: % Basophils 0.2 % (0-2); % Eosinophils 0.2 % (0-6); % Immature Granulocytes 0.4 % (0-0.5); % Lymphocytes 4.6 % (20.5-51.1); % Neutrophils 87.6 % (42.2-75.2); Absolute Immature Granulocytes 0.1 10^3/uL (0-0.05); Absolute Lymphocytes 0.7 10^3/uL (1.2-3.4); Absolute Monocytes 1.1 10^3/uL (0.1-0.6); Absolute Neutrophils 13.5 10^3/uL (1.4-6.5); Hematocrit 33.9 % (39.0-52.0); Hemoglobin 11.7 g/dL (13.0-18.0); Mean Corp Hgb Conc. 34.5 g/dL (33.0-37.0); Mean Corpuscular Hgb 28.5 pg (27.0-31.0); Mean Corpuscular Volume 82.5 fL (80.0-94.0); Mean Platelet Volume 10.3 fL (7.4-10.4); Nucleated Red Blood Cells % 0 % (-); Platelet Count 158 10^3/uL (130-400); Red Blood Cell Count 4.11 10^6/uL (4.70-6.10); Red Cell Dist. Width 15.1 % (11.5-14.5); White Blood Cell Count 15.4 10^3/uL (4.8-10.8)
[2024-11-14] MEDS: DIPRIVAN 100 IV ×2 (02:10→05:23)
[2024-11-14 02:19] LABS: APTT 70.8 Sec (23.4-35.0)
[2024-11-14 02:51] LABS: ALT (SGPT) 223 U/L (0-50); AST (SGOT) 91 U/L (17-59); Albumin 3.7 g/dl (3.5-5.0); Alkaline Phosphatase 63 U/L (38-126); Blood Urea Nitrogen 28 mg/dl (9-20); Calcium 8.8 mg/dl (8.4-10.2); Carbon Dioxide 17 mmol/L (22-30); Chloride 106 mmol/L (98-107); Estimated Creatinine Clearance 59 ml/min; Glucose 145 mg/dl (70-99); Magnesium 2.8 mg/dl (1.6-2.3); Phosphorus 5.3 mg/dl (2.5-4.5); Potassium 4.9 mmol/L (3.5-5.1); Sodium 137 mmol/L (135-145); Total Bilirubin 0.8 mg/dl (0.2-1.3); Total Protein 6.1 g/dl (6.3-8.2); eGFR 39.75
[2024-11-14 03:03] LABS: Glucose - Point of Care 136 mg/dl (70-99)
[2024-11-14] MEDS: LR 1000 IV ×2 (03:40→17:38)
--- NOTE | 2024-11-14 04:29 | PTCARENOTE ---
Since increasing sedation overnight, pt less responsive, only opening eyes to pain. Propofol turned back down to 25mcg.
Continues belly breathing, shivering at times despite temp being normothermic. RT adjusted vent as able. Pulling 800-1200ml TV. RR 15-20.
Cr 1.8 on labs. UO 30-60ml/hr. RN [facility] ordered LR @ 60ml/hr.
[2024-11-14 05:06] LABS: Glucose - Point of Care 153 mg/dl (70-99)
[2024-11-14] MEDS: UNASYN IV ×4 (05:23→22:50)
[2024-11-14] MEDS: TYLENOL ORAL SOLUTION 650 MG TUBE ×4 (05:23→22:48)
--- NOTE | 2024-11-14 05:28 | PTCARENOTE ---
[facility] sun machine having difficulty keeping temp at goal of 97.4 - pads are being cooled to ~40 deg F, which are freezing on top of pt. ARI notified. OK to increase goal temp to 97.8 (which is where pt. has been around for last few hours).
[2024-11-14] MEDS: HEPARIN 25000 UNITS/250 ML IV ×2 (06:04→19:51)
[2024-11-14 06:05] LABS: B.E. -5.1 mmol/L; HCO3 19.9 mmol/L (21-28); O2 Saturation % 99.5 % (94-98); PCO2 36 mmHg (35-48); PO2 127 mmHg (83-108); pH 7.35 (7.35-7.45)
[2024-11-14 06:18] LABS: Hemoglobin 11.2 g/dL (13.0-18.0); Lactic Acid 2.4 mmol/L (0.7-2.0); Mean Corp Hgb Conc. 33.9 g/dL (33.0-37.0); Mean Corpuscular Hgb 28.4 pg (27.0-31.0); Mean Corpuscular Volume 83.8 fL (80.0-94.0); Mean Platelet Volume 10.9 fL (7.4-10.4); Platelet Count 157 10^3/uL (130-400); Red Blood Cell Count 3.94 10^6/uL (4.70-6.10); White Blood Cell Count 14.7 10^3/uL (4.8-10.8)
[2024-11-14 06:34] LABS: PT 14.6 Sec (11.4-14.6)
[2024-11-14 06:36] LABS: ALT (SGPT) 199 U/L (0-50); AST (SGOT) 76 U/L (17-59); Albumin 3.2 g/dl (3.5-5.0); Alkaline Phosphatase 59 U/L (38-126); Blood Urea Nitrogen 29 mg/dl (9-20); Calcium 8.5 mg/dl (8.4-10.2); Carbon Dioxide 19 mmol/L (22-30); Chloride 106 mmol/L (98-107); Estimated Creatinine Clearance 64 ml/min; Glucose 188 mg/dl (70-99); Magnesium 2.6 mg/dl (1.6-2.3); Phosphorus 5.2 mg/dl (2.5-4.5); Potassium 4.9 mmol/L (3.5-5.1); Sodium 136 mmol/L (135-145); Total Bilirubin 0.9 mg/dl (0.2-1.3); Total Protein 5.8 g/dl (6.3-8.2); eGFR 42.57
[2024-11-14 07:17] LABS: Prealbumin (Transthyretin) 18.8 mg/dl (17.6-36.0)
[2024-11-14] MEDS: NOVOLIN R INSULIN INFUSION 100 IV (07:31)
[2024-11-14] MEDS: BUSPAR 30 MG TUBE ×2 (07:33→16:40)
[2024-11-14] MEDS: NSS (PRESERVATIVE FREE) 10 ML IV ×2 (07:33→19:49)
[2024-11-14] MEDS: LOW STRENGTH ASPIRIN 81 MG TUBE (07:33)
[2024-11-14] MEDS: REFRESH CELLUVISC GEL 1 DROPS OPHTH (07:33)
[2024-11-14] MEDS: MIRALAX 17 GRAMS TUBE (07:33)
[2024-11-14] MEDS: DUONEB 3 ML INH ×2 (07:33→19:37)
[2024-11-14] MEDS: PROTONIX IV 40 MG IV ×2 (07:34→19:49)
[2024-11-14 07:52] LABS: Glucose - Point of Care 197 mg/dl (70-99)
[2024-11-14 07:52] LABS: Glucose - Point of Care 201 mg/dl (70-99)
--- NOTE | 2024-11-14 07:53 | W.PN.HOSP.TC ---
Today's Communication/Plan
-
wean levophed
SBT/extubation at discretion of pulm/instructor bus trolley and taxi
cardiac cath Friday
will need repeat head CT at some point as well
apprec all consultants
adjust insulin
Assessment / Plan
Assessment / Plan
pt is a 69 year old male
Witnessed Cardiac Arrest due to presumed Ventricular Fibrillation with CPR-- Reported V-Fib on initial tracings in patient with known heart disease/cardiomyopathy--cont amiodarone--finished targeted temp protocol and now on maintenance
normothermia--lift/stop sedation--wean levophed if able--Aggressive avoidance of fever--ECHO with EF 20% (down from 35-40% in 202)--cardiac cath Friday with possible defibrillator (will defer to cards)--apprec cards/instructor bus trolley and taxi/neuro--plan for
repeat head CT at some point
troponin elevation--could be from CPR most likely--less so primary cardiac event--peaked at 2.09 and downtrending
VDRF--intubated for cardiac arrest--extubation as per pulm directions
Lactic Acidosis/Abnormal LFTs--likely from cardiogenic shock from cardiac arrest--lactate already trending down (2.4 from 7.2)--Hold on diuresis for now--may need to restart if BP amenable
ASCVD - s/p prior stents - most recent about 20y ago per -- No recent issues with chest pain, exertional dyspnea, etc-- EKG with non-specific ST changes but no evident ST elevations noted-- IV heparin, daily ASA, etc.
Chronic HFrEF--LVEF = 20% today compared with 35-40% in 202--CXR shows some degree of pulmonary edema - but no rales appreciated on exam--Will likely require IV diuresis once BP stabilizes.
Paroxysmal Atrial Fibrillation--s/p cardioversions and ablations- -Currently in sinus rhythm- - Not on any antiarrhythmic medications. Patient has declined OAC in the past.
Essential Hypertension--hold meds as needed--restart as able pending BP--wean levophed to off
Type 2 DM-- Current hyperglycemia likely secondary to acute event-- notes that glucose has been well-controlled recently-- Continue basal insulin-- Cover with SSI as needed-- A1C 8.9
Obesity due to excess calories--affects all aspects of care- - Encourage healthy diet and activity as able for goal of weight loss.
HUANG on CPAP--Currently on vent support - resume nightly CPAP after extubated.
BPH--Fontenot placed in the ED-- Patient scheduled for TURP in December.
DVT Proph--On therapeutic heparin.
Code Status: Full
Total Critical Care Time 30 minutes. I was immediately available to the patient and staff. I personally examined, reviewed labs, diagnostic images/reports, interpretations, treatment plans, discussed patient care with other providers and family
or caregivers (if patient is unable to make decisions), entered orders as appropriate and documented the medical record.
Anticipated Discharge: > 48 hours
Subjective/Interval History
-
Date of Service: November 14, 2024
pt awake, still intubated but nods appropriately
Objective Data
-
Labs:
Laboratory Results
11/13/24 11/13/24 11/14/24
19:58 19:59 00:15
WBC 13.3 H
Hgb 11.8 L
Hct 34.1 L
Plt Count 166
PT
INR
APTT 74.4 H
HCO3 19.3 L
Sodium 135
Potassium 4.6
Chloride 106
Carbon Dioxide 16 L
BUN 28 H
Creatinine 1.6 H
Glucose 196 H
Calcium 8.8
Total Bilirubin 0.7
AST 103 H
ALT 243 H
Alkaline Phosphatase 61
11/14/24 11/14/24 11/14/24
02:00 05:58 06:00
WBC 15.4 H 14.7 H
Hgb 11.7 L 11.2 L
Hct 33.9 L 33.0 L
Plt Count 158 157
PT 14.6
INR 1.10
APTT 70.8 H Cancelled
HCO3 19.9 L
Sodium 137 136
Potassium 4.9 4.9
Chloride 106 106
Carbon Dioxide 17 L 19 L
BUN 28 H 29 H
Creatinine 1.8 H 1.7 H
Glucose 145 H 188 H
Calcium 8.8 8.5
Total Bilirubin 0.8 0.9
AST 91 H 76 H
ALT 223 H 199 H
Alkaline Phosphatase 63 59
11/14/24 11/14/24 11/14/24
07:49 10:00 12:00
WBC Pending
Hgb Pending
Hct Pending
Plt Count Pending
PT
INR
APTT Pending
HCO3 Pending
Sodium Pending
Potassium Pending
Chloride Pending
Carbon Dioxide Pending
BUN Pending
Creatinine Pending
Glucose Pending
Calcium Pending
Total Bilirubin Pending
AST Pending
ALT Pending
Alkaline Phosphatase Pending
11/14/24 11/14/24 11/14/24
14:00 18:00 22:00
WBC Pending Pending Pending
Hgb Pending Pending Pending
Hct Pending Pending Pending
Plt Count Pending Pending Pending
PT
INR
APTT
HCO3 Pending
Sodium Pending Pending Pending
Potassium Pending Pending Pending
Chloride Pending Pending Pending
Carbon Dioxide Pending Pending Pending
BUN Pending Pending Pending
Creatinine Pending Pending Pending
Glucose Pending Pending Pending
Calcium Pending Pending Pending
Total Bilirubin Pending Pending Pending
AST Pending Pending Pending
ALT Pending Pending Pending
Alkaline Phosphatase Pending Pending Pending
Vital Signs:
max temp for 24 hours
11/14/24
06:00
Temp 97.9 F
Vital Signs
Temp Pulse Resp BP Pulse Ox
97.4 F 70 13 91/68 99
11/14/24 07:00 11/14/24 07:34 11/14/24 07:34 11/13/24 07:00 11/14/24 07:43
I&O
11/13/24 11/14/24 11/15/24
06:59 06:59 06:59
Intake Total 1742.7 / 1899.3 2074.5 / 2125.9 51.4 / 51.4
Output Total 505 / 515 805 / 885 80 / 80
Balance 1237.7 / 1384.3 1269.5 / 1240.9 -28.6 / -28.6
Review of Systems
-
Unable to obtain full review of systems at this time due to: Patient Intubation
Physical Exam
-
General: Well Developed, Well Nourished, No Apparent Distress, Intubated and Obese
HEENT: Normocephalic and Atraumatic
Respiratory: Clear to Auscultation; Negative Wheezes or Rhonchi
Cardiac: Regular Rhythm and S1/S2; Negative Murmur
GI: Soft, Nontender, Nondistended and Normal Bowel Sounds
Genito-urinary: Fontenot
Musculoskeletal: No Clubbing, No Cyanosis and No Edema
Neuro: Awake
--- NOTE | 2024-11-14 08:08 | PTCARENOTE ---
pt received from previous rn- ett to vent0- on ASV, oral care provided. nsr with 1st degree, bundle, and pvcs on monitor. left radial miranda zeroed and functioning. remains on artic sun- temp 97.4, see flowsheet. schroeder draining anat urine with
sediment. pt provided sedation vacation- opens eyes to name, nods yes and no and follows simple commands appropriately. remains on insulin, heparin, ivf, fent and propofol gtts- see flowsheets. at bedside- education provided, verbalized
understanding. all care explained as provided. turned and repositioned. all safety precautions in place.
--- NOTE | 2024-11-14 08:21 | W.PN.INTV ---
Today's Communication / Plan
Recommendations
Extubated today
Continue insulin drip and try weaning off to basal�bolus insulin; goal BG 140-180
MILITARY SCIENCE INSTRUCTOR evaluation
DuoNebs BID
Antibiotics
Consider urology consult if spikes fever as he has a history of bladder stones and they could be a nidus for infection
Continue with core temperature sensing Fontenot catheter to continue to monitor for fevers
Pain control
NPO p MN for left heart cath
Defer starting GDMT to cardiology
Assessment
-
Assessment: 69-year-old male with a past medical history of DM type II on insulin, hypertension, GERD, and BPH who presented with cardiac arrest. He had passed out in the parking lot after going target-shooting with his and family friend, and
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 His family started CPR on him but his body positioning was difficult in the car so they grabbed someone from inside a store and they continued CPR until EMS arrived. CPR was reportedly
started immediately. EMS said initial rhythm was VF, and delivered 5 shocks, 4mg of epinephrine, 150 mg lidocaine and 2 g of magnesium for reported torsades de pointes. He was intubated in the field with ROSC obtained and then brought here to
ER. He was afebrile to 97.8 �F with HR 122, respiratory rate 28, BP 121/96 and saturating 98% on room air. Initial labs showed WBC 15.2, Hb 13.8, INR 1.06, initial blood gas 7.19/47/200/99.6%, creatinine 1.6, lactate 7.2, AST 285, ALT 359,
troponin 0.023, proBNP 638, TSH 2.92. He was making movements but unclear if they were purposeful, although he did find a way to push out the ETT with his tongue, which required reintubation in the ER. Initial CXR showed upper lobe patchy
opacities, and initial CT head showed no acute intracranial abnormality. CTA chest, CT abdomen/pelvis showed no evidence of an acute PE, aortic aneurysm or dissection, with multiple coastal cartilage + rib fractures, moderate diffuse bilateral
dependent consolidation with scattered patchy airspace opacities in the upper lung meehan, with no acute inflammatory process in the abdomen or pelvis. In the ER he was sedated with propofol + fentanyl drips, given bicarb x 1 amp, metoprolol 5 mg
and aspirin 300 mg. Patient started on hypothermic protocol, and admitted to the ICU for further care with family centered specialist services consulted for additional management/recommendations.
Chronic conditions PLASTICS PROCESS HAND: Chronic HFrEF, A-fib not on AC s/p PVI + DCCV, CAD s/p stents x 4 (placed 11/2007), hypertension, hyperlipidemia, DM type II, obesity, HUANG, BPH, GERD, glaucoma, allergies, bladder stones
Impression:
#Mra-xe-xxadihkx cardiac arrest with initial rhythm reported to be V-fib s/p shock
#Acute respiratory failure with hypoxia + hypercapnia now on mechanical ventilation (intubated in the field on 11/12/2024 --> extubated 11/14/2024
#Circulatory shock likely due to sedation in the setting of suspected aspiration pneumonia and possibly UTI - shock state now resolved
#Acute on chronic HFrEF (EF now approximately 20% which has worsened from prior echo in 04/18 where EF was 35-40%)
#Leukocytosis � reactive + infectious
#Aspiration pneumonia
#Abnormal urinalysis with 26/30 urine WBCs and +1 leukocyte esterase with many bacteria concerning for UTI
#Acute anemia
#ALBER (appears that baseline creatinine is approximately 1.3, from 2021)
#DM type II (uncontrolled � HbA1c 8.9 from 11/12/2024) complicated by hyperglycemia now on insulin drip
#Transaminitis likely due to ischemia from cardiac arrest with prolonged downtime
#Elevated troponin likely due to CPR in the setting of cardiac arrest; unable to rule out NSTEMI
#Bilateral rib fractures due to CPR
#Obesity (BMI: 43.7)
Plan:
- Patient had collapsed and suffered an fgh-ir-cucgxxyv cardiac arrest with initial rhythm of V-fib as per EMS with total down-time 30-40mins; TTE now shows an acutely worsened LVEF at 20%
- Initial CTA chest showed bilateral consolidation with opacification in the upper lobes, bronchial wall thickening, and bilateral lower lobe atelectasis; no acute PE seen & PA trunk diameter: 31mm
- Most likely cardiac etiology given his significant cardiac history; initial EKG did not show evidence of STEMI, although EKG from evening of 11/12 showed PVCs, sometimes doublets
- Continue with heparin drip + ASA for presumed ACS; his LDL is already <55 (18)
- He is awake, alert, was extubated today (11/14) and is being planned for left heart catheterization tomorrow for ischemic evaluation
- Amiodarone gtt stopped 11/13 due to bradycardia; continue to monitor for arrhythmias on telemetry
- Replete electrolytes with K>4, Mg>2
- He follows with Dr. Hernandez with [facility] as an outpatient
- Continue supplemental oxygen to maintain SpO2 >94%
- Continue aspiration precautions
- Continue DuoNebs BID (RN noticed he was wheezing on AM of 11/13); continue prn DuoNebs as well (currently not bronchospastic)
- Neurology consulted and recommendations appreciated
- Repeat CT head pending
- Initial CT head on 11/12/2024 showed no acute intracranial abnormality
- Defer EEG to neurology
- Continue antibiotics (Unasyn) given concern for aspiration pneumonia
- Follow up blood cultures + sputum culture; urine antigens for Legionella + strep pneumonia both negative; MRSA swab pending
- Urine culture positive for Enterococcus species - follow-up sensitivities
- Maintain MAP>65; vasopressors are off since evening of 11/13
- Hold home anti-hypertensives for now, and start GDMT per cardiology
- Trend LFTs
- Trend sCr and strict I/O; renally dose all meds/ABx
- The patient has a history of bladder stones and his CT abdomen/pelvis from 11/12/2024 shows coarse nodular calcified focus along the ventral margin of the bladder measuring 2.1 cm; patient says that he was going to be seeing urology as an
outpatient; consider urology consult while hospitalized especially if he spikes a fever and we feel a cystoscopy would be needed to see if this stone is a nidus for infection
- Maintain euglycemia with goal BG 140-180 with insulin drip; will try to wean off insulin drip and start basal�bolus insulin dosing and consult diabetic HAM SMOKER
- Trend H/H and transfuse if needed to keep Hb>7-8g/dL; keep plt>20k
- PPI (home med)
- DVT ppx: Heparin gtt
Continue ICU level care for this critically ill patient
Critical care statement: A total of 42 minutes of critical care time was provided for this patient today. This includes management of unstable vital signs, evaluation of the patient at bedside, reviewing the patient's pertinent medical records
including radiographs, microbiology, laboratory evaluations, and discussion with primary team, consultants, pharmacy, nutrition, physical therapy, case management, charge nurse, critical care nursing, and respiratory therapy.
Data:
CT head/: No acute intracranial abnormality noted.
CTA chest, CT abdomen/pelvis with IV contrast 11/12/2024:
Respiratory motion degradation. No filling defect to indicate pulmonary embolism with confidence to the proximal subsegmental divisions of the pulmonary arteries.
No aortic aneurysm or dissection.
No pneumothorax.
Costal cartilage and rib fractures, as described. Trace focus of air in the anterior lower left pericardial fat.
Moderate diffuse bilateral dependent consolidation, likely atelectasis. Mild asymmetric disproportionate consolidation in the posterior left upper lobe. Possible pneumonia. Scattered patchy mild airspace opacity in the upper lungs, likely related to
hypoinflation.
No acute inflammatory process within the abdomen or pelvis.
No hydronephrosis or obstructive uropathy. Bilateral renal cysts.
Mild distal abdominal aortic ectasia measuring up to 3.4 cm, without significant change. No adenopathy.
Mild diverticulosis. No acute diverticulitis. No bowel obstruction.
Subjective Dataa
Subjective Data
Date of Service:
Date of Service: November 14, 2024
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
Subjective:
Patient was seen and evaluated today at bedside. Currently on a pressure support wean on 11/29 at 40% FiO2 with sedation stopped. Following all commands, awake, alert, able to lift head off the pillow and moving all 4 extremities. He was extubated
to nasal cannula at 4 L/min and is breathing comfortably. Remains on insulin drip at 7 units/h. Also on heparin drip. Spoke with the and the patient's family friend at bedside and all questions were answered. Patient mainly endorses some
chest discomfort where his rib fractures are located; otherwise currently denies SOB, BOTELLO, nausea, fevers or chills.
Review of Systems
General: Other (Negative unless mentioned above)
Objective Data
Data Reviewed
Vital Signs / I&O / Oxygen:
Vital Signs
Temp Pulse Resp BP Pulse Ox
98.6 F 75 13 91/68 97
11/14/24 10:00 11/14/24 09:00 11/14/24 09:00 11/13/24 07:00 11/14/24 09:30
Intake and Output
11/13/24 11/14/24 11/15/24
06:59 06:59 06:59
Intake Total 1742.7 / 1899.3 2074.5 / 2185.9 619.8 / 619.8
Output Total 505 / 515 805 / 885 340 / 340
Balance 1237.7 / 1384.3 1269.5 / 1300.9 279.8 / 279.8
SaO2 [ASV] 99
SaO2 [A/C] 99
SaO2 97
Physical Exam
General: Respiratory Distress (negative), Pain (Anterior chest/ribs), Chills (negative) and Sweats (negative)
HEENT: Normocephalic and Anicteric
Cardiovascular: S1-S2 and Peripheral Edema (negative)
Respiratory: Wheeze (negative), Crackles (Bilateral), Rhonchi (negative) and Non-Labored Respirations
GI: Soft, Distended (Abdominal obesity), Non Tender and Normal Bowel Sounds
Neurology: AO x 3 and Tremors (negative)
Skin: Warm, Dry, Cyanosis (negative) and Jaundice (negative)
Labs/Micro/Reports
Laboratory Results
11/13/24 11/13/24 11/13/24
14:25 18:04 19:59
PT
INR
APTT 72.2 H 74.4 H
pH 7.41
pCO2 34 L
pO2 172 H
HCO3 21.6
O2 Delivery Level
11/14/24 11/14/24 11/14/24
00:15 02:00 05:58
PT 14.6
INR 1.10
APTT 70.8 H
pH 7.35 7.35
pCO2 35 36
pO2 98 127 H
HCO3 19.3 L 19.9 L
O2 Delivery Level
11/14/24 11/14/24 11/14/24
06:00 07:49 09:58
PT
INR
APTT Cancelled 69.0 H
pH 7.39
pCO2 35
pO2 184 H
HCO3 21.2
O2 Delivery Level 40% vent
Microbiology
11/13/24 11:52 Endotracheal Respiratory Culture - Preliminary
11/13/24 11:52 Endotracheal Gram Stain - Preliminary
11/13/24 11:45 Urine Legionella Urinary Antigen - Final
Negative for Legionella pneumophila Serogroup 1 antigen.
A negative result does not rule out the possiblity of
Legionella infection due to other serogroups or species of
Legionella. Clinical correlation is recommended.
11/13/24 11:45 Urine Streptococcus pneumoniae Antigen (M - Final
Negative for Streptococcus pneumoniae antigen.
A negative result does not exclude infection with
Streptococcus pneumoniae. Clinical correlation is
recommended.
[2024-11-14 08:59] LABS: Glucose - Point of Care 218 mg/dl (70-99)
--- NOTE | 2024-11-14 09:41 | PTCARENOTE ---
pt placed on wean 5/5 40% at 0930.
[2024-11-14 09:56] LABS: Glucose - Point of Care 206 mg/dl (70-99)
--- NOTE | 2024-11-14 10:03 | W.PN.CD ---
Today's Communication / Plan
-
Awake and following commands. Plan to extubate today.
LHC tomorrow if creatinine looks okay.
Heparin and aspirin for ACS.
Norepinephrine for goal MAP greater than 65
Impression / Plan
-
69-year-old male with history of ischemic cardiomyopathy with recovered ejection fraction (EF 53% in 2022), atrial fibrillation s/p PVI (2005, 2015), CAD with reported remote stenting in 2007, insulin-dependent diabetes, obesity presents to the
emergency room via EMS status post out of hospital cardiac arrest.
Gmo-nt-qiklfzmb arrest
-Occurred while getting into the car. Became pale and unresponsive. Bystander CPR started immediately. Initial rhythm VF. 30-35 minutes ACLS in the field prior to ROSC. Received 5 total shocks, lidocaine bolus, multiple rounds of epinephrine,
and 2 mg magnesium. Intubated in the field. Reportedly had some mental status after ROSC.
-Most likely cardiac in nature given his significant past cardiac history and VF. Initially on amiodarone infusion but stopped due to bradycardia.
-Emergent LHC deferred given lack of definitive ST elevations, no ongoing arrhythmias or evidence of cardiogenic shock
-S/p targeted temperature management and now has regained mental status
-Coronary angiography once stabilized. Maybe Friday if he is successfully extubated and creatinine looks okay tomorrow.
-Continue medical management for presumed ACS with heparin and aspirin.
Hypotension
-Requiring norepinephrine. Suspect due to sedation as he had high sedation needs with propofol/fentanyl. Cardiogenic shock is also possible.
-TTE/: Extremely technically limited study, EF 20% (per outside report it had previously recovered --see below)
-Continue norepinephrine for goal MAP >65 mmHg
-LHC tomorrow
Troponin elevation
-Troponin peaked at 2.09 after 35 minutes of CPR. ECG no STEMI. Most likely due to initial ischemic event causing OOH arrest and shocks in the field
-ACS treatment as above
HFrEF (EF 20%), acute on chronic
-Follows with Dr. Muñoz from [facility] ([place]). Reviewed outside records. Last TTE August 2022: Moderately dilated LV, LVEF 53%, severe LA dilation, mild MR, moderate PH
-Was on BB, ACEi, and Ashkan as an outpatient
-Add back GDMT when able
-Hold diuresis as he is requiring Norepinephrine
CAD with remote stenting
-Had 4 stents placed in 2007. Does not know which vessels. Cardiac catheterization requested.
-Continue ASA
-Resume statin once LFT abnormalities resolved
Paroxysmal atrial fibrillation status post PVI
-Declined anticoagulation in the past
-Outpatient cardiology records requested
Diabetes: Management per primary
CCT: 37 minutes
Subjective: Did well overnight. Telemetry reviewed which shows PVCs and the occasional triplet but no NSVT longer than 3 beats. He is awake and following commands this morning. Still intubated.
Physical Exam
Vital Signs/Labs
Vital Signs
Temp Pulse Resp BP Pulse Ox
98.6 F 75 13 91/68 97
11/14/24 10:00 11/14/24 09:00 11/14/24 09:00 11/13/24 07:00 11/14/24 09:30
11/13/24 11/14/24 11/15/24
06:59 06:59 06:59
Actual Weight 340 lb 2.772 oz 349 lb 10.45 oz
PT 14.6 Sec (11.4-14.6) 11/14/24 05:58
INR 1.10 11/14/24 05:58
APTT 69.0 Sec (23.4-35.0) H 11/14/24 07:49
Magnesium 2.6 mg/dl (1.6-2.3) H 11/14/24 05:58
Triglycerides 189 mg/dl (10-149) H 11/13/24 07:48
LDL Cholesterol, Calc 18 mg/dl 11/13/24 07:48
VLDL Cholesterol, Calc 37 mg/dl (0-30) H 11/13/24 07:48
HDL Cholesterol 25 mg/dl 11/13/24 07:48
11/12/24
17:49
Xpt-U-Ifznilnslfm Pept 638
LAB Results
11/12/24 11/12/24 11/13/24
17:49 20:27 00:41
Troponin I 0.023 Cancelled 1.330 H* D
11/13/24 11/13/24 11/13/24
02:28 07:48 11:45
Troponin I 1.380 H* Cancelled 1.840 H*
11/13/24 11/13/24 11/14/24
18:04 19:58 02:00
Troponin I 2.070 H* 2.090 H* 1.970 H*
Physical Exam
Constitutional: No acute distress and Comfortable
EENT: Anicteric
Cardiovascular: Rhythm & rate is regular, Pedal edema is absent, S1S2 is normal and Murmur/rub/gallop absent
Respiratory: Other (Breathing comfortably on ventilator)
Neuro/Psych: Other (Awake, following commands)
Data Reviewed
-
Date of Service: November 14, 2024
Medical Decision Making: Reviewed Test Results, Independent Historian Assessment, Test Interpretation and Review of Case with other Provider
EKG: Tracing Personally Visualized and interpreted
Echo: Report Reviewed by me
Labs: Labs Reviewed by me
Old Records: Requested and Reviewed
[2024-11-14 10:08] LABS: % Basophils 0.3 % (0-2); % Eosinophils 0.4 % (0-6); % Immature Granulocytes 0.4 % (0-0.5); % Lymphocytes 6.8 % (20.5-51.1); % Neutrophils 86.1 % (42.2-75.2); Absolute Eosinophils 0.1 10^3/uL (0-0.7); Absolute Immature Granulocytes 0.1 10^3/uL (0-0.05); Absolute Lymphocytes 0.9 10^3/uL (1.2-3.4); Absolute Monocytes 0.8 10^3/uL (0.1-0.6); Absolute Neutrophils 11.9 10^3/uL (1.4-6.5); Hematocrit 31.7 % (39.0-52.0); Hemoglobin 10.9 g/dL (13.0-18.0); Mean Corp Hgb Conc. 34.4 g/dL (33.0-37.0); Mean Corpuscular Hgb 28.3 pg (27.0-31.0); Mean Corpuscular Volume 82.3 fL (80.0-94.0); Mean Platelet Volume 10.8 fL (7.4-10.4); Nucleated Red Blood Cells % 0 % (-); Platelet Count 166 10^3/uL (130-400); Red Blood Cell Count 3.85 10^6/uL (4.70-6.10); White Blood Cell Count 13.9 10^3/uL (4.8-10.8)
[2024-11-14 10:12] LABS: B.E. -3.2 mmol/L; HCO3 21.2 mmol/L (21-28); PCO2 35 mmHg (35-48); PO2 184 mmHg (83-108); pH 7.39 (7.35-7.45)
[2024-11-14 10:13] LABS: O2 Therapy 40% vent
[2024-11-14 10:19] LABS: Lactic Acid 2.7 mmol/L (0.7-2.0)
--- NOTE | 2024-11-14 10:23 | RESPNOTE ---
Respiratory: patient extubated per Dr. Mendez, without incident. No stridor, no wheeze. SpO2 95% on 4 LPM nasal cannula.
--- NOTE | 2024-11-14 10:24 | W.PN.NEURO.1 ---
Today's Communication / Plan
-
.
Subjective/Objective
Subjective Data
Date of Service: November 14, 2024
Neurology follow-up note.
No acute events overnight. Off sedation, rewarmed.
Repeat CT head�pending
PMH: CAD, PA-Fib(s/p PVI), CHF (EF 35% in 2021), BMI 43, HTN, DLP, DM, GERD, SANDRA, obstructive uropathy
PSH: PTCI, cystolitholopaxy/stent placement, BL TKA,, bilateral cataract surgery
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
FH: Noncontributory to current presentation
All: Labetalol, metoprolol, penicillin
ROS: Unable due to intubation
General: Intubated, restrained
Cardio: Regular rate
Mental Status: Opens eyes to verbal stimuli. Attends to examiner briefly. Follows requests (shows 2 fingers, shows some with the right hand).
Cranial Nerves: Orthophoric primary gaze. Pupils are 2.5 mm, surgical. Extraocular movements intact. Hearing is preserved
Motor: Moves all limbs within bed plane
Reflexes: Limited due to body habitus.
Sensory: Grimaces to noxious stimuli bilaterally.
Coordination: No tremors myoclonic movements
Gait: unable
Assessment and Plan:
I. Multifactorial encephalopathy, significantly improved
II. PA A-fib
III. S/p cardiac arrest
- Continue Telemetry monitoring
- Avoid cerebral hypoperfusion
- Please repeat CT head wo contrast
- Continue aspirin 81 mg once a day
- The case was discussed with patient's spouse
- Will follow
I personally reviewed all radiology and labs along with past medical records pertinent to current medical problems. Total time spent in patient care is 35 minutes.
Thank you for allowing us to participate in the care of this patient. We will continue to follow. Please do not hesitate to contact us with any questions or concerns.
Objective Data
Vital Signs
Temp Pulse Resp BP Pulse Ox
37.0 C 75 13 91/68 97
11/14/24 10:00 11/14/24 09:00 11/14/24 09:00 11/13/24 07:00 11/14/24 09:30
PT 14.6 Sec (11.4-14.6) 11/14/24 05:58
INR 1.10 11/14/24 05:58
APTT 69.0 Sec (23.4-35.0) H 11/14/24 07:49
Sodium Cancelled 11/14/24 09:58
Potassium Cancelled 11/14/24 09:58
BUN Cancelled 11/14/24 09:58
Glucose Cancelled 11/14/24 09:58
Calcium Cancelled 11/14/24 09:58
Phosphorus Cancelled 11/14/24 09:58
Cpv-C-Jwfsvebslae Pept 638 pg/ml 11/12/24 17:49
LDL Cholesterol, Calc 18 mg/dl 11/13/24 07:48
Ur Buprenorphine Negative (Negative) 11/12/24 17:49
Patient Allergies
bee venom protein (honey bee) Allergy (Verified 11/12/24 19:03)
Swelling
Penicillins Allergy (Verified 11/12/24 19:03)
Rash
labetalol Adverse Reaction (Verified 11/12/24 19:03)
Nausea / Vomiting
metoprolol Adverse Reaction (Verified 11/12/24 19:03)
Nausea / Vomiting
Vital Signs and Labs
-
Vital Signs and Labs:
Vital Signs
Temp Pulse Resp BP Pulse Ox
37.0 C 75 13 91/68 97
11/14/24 10:00 11/14/24 09:00 11/14/24 09:00 11/13/24 07:00 11/14/24 09:30
PT 14.6 Sec (11.4-14.6) 11/14/24 05:58
INR 1.10 11/14/24 05:58
APTT 69.0 Sec (23.4-35.0) H 11/14/24 07:49
Sodium Cancelled 11/14/24 09:58
Potassium Cancelled 11/14/24 09:58
BUN Cancelled 11/14/24 09:58
Glucose Cancelled 11/14/24 09:58
Calcium Cancelled 11/14/24 09:58
Phosphorus Cancelled 11/14/24 09:58
Edb-Q-Coqhrzapxvu Pept 638 pg/ml 11/12/24 17:49
LDL Cholesterol, Calc 18 mg/dl 11/13/24 07:48
Ur Buprenorphine Negative (Negative) 11/12/24 17:49
Medications
-
Medications:
Generic Name Dose Route Start Last Admin
Trade Name Freq PRN Reason Stop Dose Admin
Acetaminophen 650 mg 11/13/24 00:00 11/14/24 05:23
Acetaminophen (Oral Solution) 650 Mg/20.3 Ml Cup TUBE 11/17/24 00:00 650 mg
Q6 FLO Administration
Albuterol/Ipratropium 3 ml 11/13/24 20:00 11/14/24 07:33
Ipratropium 0.5/Albuterol 3 Mg (3 Ml Ampul) INH 3 ml
R BID FLO Administration
Protocol
Albuterol/Ipratropium 3 ml 11/13/24 11:29
Ipratropium 0.5/Albuterol 3 Mg (3 Ml Ampul) INH
R Q4HPRN PRN
SOB/Wheezing
Protocol
Aspirin 81 mg 11/13/24 09:31 11/14/24 07:33
Aspirin 81 Mg Chewable Tablet TUBE 12/11/24 09:30 81 mg
DAILY FLO Administration
Buspirone HCl 30 mg 11/13/24 00:00 11/14/24 07:33
Buspirone 15 Mg Tablet TUBE 12/11/24 00:00 30 mg
Q8 FLO Administration
Carboxymethylcellulose Sodium 1 drops 11/13/24 08:00 11/14/24 07:33
Carboxymethylcellulose Ophth Gel (Celluvisc) Droperette OPHTH 12/11/24 07:59 1 drops
BID FLO Administration
Dextrose 12.5 grams 11/12/24 20:45
Dextrose 50% (0.5 Grams/Ml) 50 Ml Syringe IV 12/10/24 20:44
[id number] PRN
Blood Glucose < 70
Fentanyl Citrate 50 mcg 11/12/24 20:36 11/14/24 00:32
Fentanyl (50 Mcg/Ml) 100 Mcg/2 Ml Ampul IV 11/26/24 20:35 50 mcg
[id number] PRN Administration
see protocol
Protocol
Fentanyl Citrate 50 mcg 11/13/24 18:56 11/13/24 22:27
Fentanyl (50 Mcg/Ml) 100 Mcg/2 Ml Ampul IV 11/27/24 18:55 50 mcg
[id number] PRN Administration
see protocol
Protocol
Glucagon 1 mg 11/12/24 20:27
Glucagon 1 Mg Vial IM 12/10/24 20:26
PRN PRN
hypoglycemia
Protocol
Heparin Sodium 25,000 units in 250 mls @ 0 mls/hr 11/12/24 18:45 11/14/24 06:04
Heparin 27080 Units/250 Ml IV 250 mls
PER PROTOCOL FLO Administration
Protocol
Per Protocol
Norepinephrine Bitartrate 4 mg in 250 mls @ 0 mls/hr 11/12/24 20:30 11/13/24 10:55
Levophed IV 250 mls
PER PROTOCOL FLO Administration
Protocol
Per Protocol
Fentanyl Citrate 1,000 mcg in 100 mls @ 0 mls/hr 11/12/24 20:45 11/13/24 23:40
Sublimaze IV 100 mls
PER PROTOCOL FLO Administration
Protocol
Per Protocol
Insulin Human Regular 100 units in 100 mls @ 0 mls/hr 11/12/24 20:45 11/14/24 07:31
Novolin R Insulin Infusion IV 100 mls
PER PROTOCOL FLO Administration
Protocol
Per Protocol
Ampicillin Sodium/Sulbactam 120 mls @ 240 mls/hr 11/13/24 12:00 11/14/24 05:23
Sodium 3 gm/ Sodium Chloride IV 120 mls
Q6H FLO Administration
Propofol 1,000,000 mcg in 100 mls @ 0 mls/hr 11/14/24 01:16 11/14/24 05:23
Diprivan IV 100 mls
PER PROTOCOL FLO Administration
Protocol
Per Protocol
Lactated Ringer's 1,000 mls @ 60 mls/hr 11/14/24 04:00 11/14/24 03:40
Lr IV 1,000 mls
[id number] FLO Administration
Pantoprazole Sodium 40 mg 11/12/24 20:00 11/14/24 07:34
Pantoprazole Sodium 40 Mg/10 Ml Vial IV 12/10/24 19:59 40 mg
BID FLO Administration
Polyethylene Glycol 17 grams 11/13/24 08:00 11/14/24 07:33
Polyethylene Glycol Powder 17 Grams Packet TUBE 12/11/24 07:59 17 grams
DAILY FLO Administration
Sodium Chloride 0 flush 11/12/24 21:00
Sodium Chloride 0.9% (Flush) Syringe IV 12/10/24 20:59
PER PROTOCOL FLO
Sodium Chloride 10 ml 11/13/24 20:00 11/14/24 07:33
Sodium Chloride 0.9% (Preservative Free) 10 Ml Vial IV 12/11/24 19:59 10 ml
BID FLO Administration
Home Medications
-
Home Medications
atorvastatin 80 mg tablet 80 mg PO HS High cholesterol 04/04/22
bisoprolol fumarate 5 mg tablet 5 mg PO DAILY Blood pressure 04/04/22
insulin glargine 100 unit/mL (3 mL) subcutaneous pen (Ludwin Bales U-100 Insulin) 42 unit SC DAILY Diabetes 04/04/22
latanoprost 0.005 % eye drops 1 drp RIGHT EYE HS Eye condition 04/04/22
lisinopril 5 mg tablet 5 mg PO DAILY Blood pressure 04/04/22
metformin 500 mg tablet,extended release 24 hr 500 mg PO TID Diabetes 04/04/22
omeprazole 20 mg capsule,delayed release 20 mg PO BID Gastrointestinal issue 04/04/22
sitagliptin phosphate 100 mg tablet (Januvia) 100 mg PO DAILY Diabetes 04/04/22
finasteride 5 mg tablet 5 mg PO DAILY 30 days #30 tabs 04/10/22
tamsulosin 0.4 mg capsule 0.8 mg (2 x 0.4 mg) PO DAILY 30 days #60 caps 04/10/22
furosemide 20 mg tablet 20 mg PO DAILY Fluid Retention/Swelling 11/12/24
naltrexone 50 mg tablet 25 mg PO DAILY Neurological Condition 11/12/24
potassium chloride 20 mEq tablet,extended release 20 meq PO DAILY Electrolyte Repletion 11/12/24
repaglinide 1 mg tablet 1 mg PO TID Diabetes 11/12/24
spironolactone 25 mg tablet 12.5 mg PO BID Blood Pressure 11/12/24
--- NOTE | 2024-11-14 10:28 | PTCARENOTE ---
pt extubated to 4LNC, pt able to tell me name, knows he is in [place], knows month not year. frequent reorientation provided. pt recognizes and friend. pt with weak nonproductive cough.
[2024-11-14 11:08] LABS: ALT (SGPT) 176 U/L (0-50); AST (SGOT) 66 U/L (17-59); Albumin 3.1 g/dl (3.5-5.0); Alkaline Phosphatase 52 U/L (38-126); Blood Urea Nitrogen 28 mg/dl (9-20); Calcium 8.1 mg/dl (8.4-10.2); Carbon Dioxide 19 mmol/L (22-30); Chloride 108 mmol/L (98-107); Estimated Creatinine Clearance 64 ml/min; Glucose 176 mg/dl (70-99); Magnesium 2.4 mg/dl (1.6-2.3); Phosphorus 4.6 mg/dl (2.5-4.5); Potassium 4.2 mmol/L (3.5-5.1); Sodium 138 mmol/L (135-145); Total Bilirubin 0.8 mg/dl (0.2-1.3); Total Protein 5.5 g/dl (6.3-8.2); eGFR 42.57
--- NOTE | 2024-11-14 11:17 | CM ---
CM following re: discharge planning.
Reviewed pt's chart, met with pt. Pt's spouse and pt's best friend at bedside.
Pt is a 69 year old male, admitted with primary dx of Cardiac arrest. Pt intubated on a field, extubated today, continue supportive care.
Pt lives with spouse in [place], has supportive son who lives in [place]. Pt is here to visit a friend and was at a shooting range. 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
PT, OT, ST will evaluate the pt to determine a level of care at discharge.
D/C plan: possible acute rehab and pt and his spouse preferred [facility] if recommended.
CM will follow with discharge plan updates as hospitalization progresses.
[2024-11-14 11:22] LABS: Glucose - Point of Care 180 mg/dl (70-99)
--- NOTE | 2024-11-14 11:41 | PTCARENOTE ---
Dr. Torres at bedside- plan of care discussed, ordered to stop serial labs, remove ttm pads. pt on sport bariatric bed. pt remains oriented to self and place, forgetful at times, pt reoriented and redirected.
[2024-11-14 12:04] LABS: Glucose - Point of Care 148 mg/dl (70-99)
--- NOTE | 2024-11-14 12:29 | PTCARENOTE ---
Addendum entered by Tisha Valles RN 11/14/24 12:29:
Dr. Mata aware pt forgetful at times, redirectable.
Original Note:
Dr. Mata made aware of pt inability to lay flat, per Dr. Mata ok to take pt to ct tomorrow.
--- NOTE | 2024-11-14 12:30 | PTCARENOTE ---
Dr. Mata made aware of pt inability to lay flat, per Dr. Mata and Dr. Torres ok to take pt to ct tomorrow. both mds aware pt forgetful. pt continues to be redirected.
[2024-11-14 12:58] LABS: Glucose - Point of Care 132 mg/dl (70-99)
[2024-11-14] MEDS: AFRIN NASAL SPRAY 4 SPRAYS NASAL ×2 (13:16→19:49)
[2024-11-14 14:01] LABS: Glucose - Point of Care 118 mg/dl (70-99)
[2024-11-14] MEDS: LANTUS 0.3 UNITS SC (14:23)
[2024-11-14 14:37] LABS: Lactic Acid 2.1 mmol/L (0.7-2.0)
[2024-11-14 14:38] LABS: APTT 76.4 Sec (23.4-35.0)
[2024-11-14 14:59] LABS: Glucose - Point of Care 105 mg/dl (70-99)
--- NOTE | 2024-11-14 15:56 | PTOTSP ---
Speech Pathology Evaluation
69M with admission for cardiac arrest and multifactorial encephalopathy. Intubated from 11/12-11/14.
Impression:
P/w acute pharyngeal dysphagia 2/2 recent intubation from 11/12-11/14. Intermittent throat clearing and c/o odynophagia with PO trials this date. Declined regular solids at this time 2/2 odynophagia. Aspiration risk is increased at this time 2/2
recent intubation, lethargy, and AMS.
Recommend:
1. Puree (IDDSI 4), thin liquids
2. Meds crushed in puree
3. Safe swallowing strategies: FULL supervision and partial assistance, small bites, slow rate
4. If overt s/s of aspiration, make NPO and await speech re-evaluation
5. ASSEMBLY MACHINE SET UP MECHANIC service to follow up re: to assess tolerance of current diet level and upgrade as able.
[2024-11-14 15:59] LABS: Glucose - Point of Care 114 mg/dl (70-99)
--- NOTE | 2024-11-14 17:08 | PTCARENOTE ---
Dr. Torres aware of pt temp 100.5 core, tylenol given as per order. pt remains forgetful, intermittently oriented to date, still knows self and location. reoriented. seen by speech therapist- ordered pureed diet, ngt removed. left radial miranda
d/c, pressure dressing applied. pt weaned to 2LNC. pt able to help turn and reposition in bed. at bedside and remains updated.
[2024-11-14 17:35] LABS: Glucose - Point of Care 173 mg/dl (70-99)
[2024-11-14] MEDS: NOVOLOG FLEXPEN-MODERATE RESISTANCE 1 UNITS SC (17:52)
[2024-11-14 18:01] LABS: Lactic Acid 1.7 mmol/L (0.7-2.0)
--- NOTE | 2024-11-14 20:18 | PTCARENOTE ---
Received patient in bed, oriented to self and place, intermittently forgetful. Patient redirected, bed alarm on, Q4 hour neurochecks ongoing. Normal sinus 80s-90s with 1st degree block, BBB configuration and occasional PVCs. BP stable, core temp
101, received tylenol at 1700. On 2 liters nasal cannula, lung sounds diminished throughout. Abdomen round, obese, positive bowel sounds. Temp sensing schroeder in place draining anat urine with sediment. Left femoral triple lumen and PIVs patent, WNL.
Heparin and LR ongoing per order, PTT sent. Schroeder care done, repositioned. Call wilcox within reach.
[2024-11-14 20:21] LABS: APTT 68.5 Sec (23.4-35.0)
[2024-11-14] MEDS: NOVOLOG FLEXPEN-MODERATE RESISTANCE 5 UNITS SC (23:17)
[2024-11-14 23:18] LABS: Glucose - Point of Care 262 mg/dl (70-99)
[2024-11-15] VITALS (40 sets, daily range): BP systolic 100–149; BP diastolic 59–97; PULSE 88–100; O2SAT 94–95; BMI 44.6
--- NOTE | 2024-11-15 00:15 | PTCARENOTE ---
Patient assessment unchanged from previous, call wilcox within reach.
[2024-11-15 03:05] LABS: PT 15.5 Sec (11.4-14.6)
[2024-11-15 03:12] LABS: ALT (SGPT) 163 U/L (0-50); APTT 60.6 Sec (23.4-35.0); AST (SGOT) 53 U/L (17-59); Albumin 3.2 g/dl (3.5-5.0); Alkaline Phosphatase 58 U/L (38-126); Blood Urea Nitrogen 26 mg/dl (9-20); Calcium 8.7 mg/dl (8.4-10.2); Carbon Dioxide 23 mmol/L (22-30); Chloride 106 mmol/L (98-107); Estimated Creatinine Clearance 68 ml/min; Glucose 261 mg/dl (70-99); Magnesium 2.3 mg/dl (1.6-2.3); Phosphorus 3.9 mg/dl (2.5-4.5); Potassium 4.8 mmol/L (3.5-5.1); Sodium 138 mmol/L (135-145); Total Bilirubin 1.1 mg/dl (0.2-1.3); Total Protein 5.6 g/dl (6.3-8.2); Triglycerides 124 mg/dl (10-149); eGFR 45.78
[2024-11-15 03:27] LABS: Prealbumin (Transthyretin) 13.6 mg/dl (17.6-36.0)
--- NOTE | 2024-11-15 04:15 | PTCARENOTE ---
Patient assessment unchanged from previous, still very forgetful and asks the same questions, redirected. CHG bath done, labs sent, repositioned. Call wilcox within reach.
[2024-11-15] MEDS: TYLENOL ORAL SOLUTION 650 MG TUBE (05:39)
[2024-11-15] MEDS: UNASYN IV ×4 (05:39→22:57)
[2024-11-15] MEDS: NOVOLOG FLEXPEN-MODERATE RESISTANCE 3 UNITS SC ×2 (05:42→18:24)
[2024-11-15 05:43] LABS: Glucose - Point of Care 222 mg/dl (70-99)
--- NOTE | 2024-11-15 07:45 | PTCARENOTE ---
Received pt with CPAP on, eyes closed, opened his eyes to verbal and tactile stimuli. He the took the CPAP mask off, I placed him on 2 liters midflow then titrated it to 4 liters for pulse ox 90%, improved to 94%. +LAZO and with conversing. Moist
cough but he swallow the phlegm. Pain with coughing. He is forgetful, repeating questions, surprised when he was informed of how long he has been here for. Asking 'was I here the whole time?'. He was reoriented multiple times. His Yareli is in
the room. Both were informed of the plan of care regarding removing left femoral central line, possible the Fontenot but Flomax would need to be restarted, head CT and possibly a left heart catheterization and maybe downgraded post procedure if he
goes. Right AC and right hand #20g protective catheter flushed and patent. Left femoral TL CVC with heparin drip per ACS/Cardiac protocol. Trace pedal edema. Lungs with expiratory wheeze anteriorly. He has a 'hug me' pillow to splint his chest d/t
rib fractures. Morbidly obese. Right lateral abdomen with scattered blue bruising. Temperature sensing Fontenot secured, draining yellow urine with sediment. Safe environment maintained. Supportive care given.
[2024-11-15] MEDS: DUONEB 3 ML INH ×2 (07:56→19:56)
[2024-11-15] MEDS: HEPARIN 25000 UNITS/250 ML IV (08:09)
[2024-11-15] MEDS: PROTONIX IV 40 MG IV ×2 (08:13→19:19)
[2024-11-15] MEDS: LOW STRENGTH ASPIRIN 81 MG TUBE (08:13)
[2024-11-15] MEDS: NSS (PRESERVATIVE FREE) 10 ML IV ×2 (08:13→19:19)
--- NOTE | 2024-11-15 08:17 | W.PN.INTV ---
Today's Communication / Plan
Recommendations
Patient is scheduled for left heart cath
Continue antibiotics
Stop IV fluids and give Lasix
Echocardiogram today
Head CT today
Restart oral medications
Speech evaluation
Assessment
-
Assessment: 69-year-old male with a past medical history of diabetes type 2 requiring insulin, hypertension, GERD, and BPH presented to the [facility] ED following cardiac arrest. Patient had passed out and become unresponsive outside of the ""hospital and required CPR and resuscitation with EMS services. Patient was found to be in A-fib, underwent defibrillation and further resuscitation including intubation. ROSC was obtained and patient was brought to the [facility] ED afterwards.
Patient required sedation and underwent reintubation in the ER as patient inadvertently took his ET tube out. Patient underwent imaging which showed possible aspiration pneumonia but no acute inflammatory processes in the abdomen or pelvis.
Patient was admitted to the ICU for further management as he was requiring pressors for his shock and was started on amiodarone drip for his A-fib. Most likely etiology was thought to be acute coronary syndrome and patient was started on heparin
drip and ASA. Cardiology and neurology were consulted. Patient also was started on Unasyn for his possible aspiration pneumonia. Patient continued to improve and was eventually taken off of pressors, and was extubated. Currently patient is
conversant and feeling much better. Scheduled for left heart cath today and will undergo echocardiogram and repeat head CT as per neuro.
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
Chronic HFrEF
A-fib not on AC s/p PVI + DCCV
CAD s/p stents x 4 (placed 11/2007)
Hypertension
Hyperlipidemia
DM type II
Obesity
HUANG
BPH
GERD
Glaucoma
Allergies
Bladder stones
Plan:
# Loc-nj-ruhfwwmp cardiac arrest with A-fib reported, requiring defibrillation
-Cardiac arrest occurred on 11/12/2024 and was treated with CPR and defibrillation
-Patient currently on heparin drip plus ASA for presumed ACS, atorvastatin 80 mg at home
-On bisoprolol at home, allergic to metoprolol and labetalol which caused nausea and vomiting
-Also taking spironolactone
-Will continue atorvastatin
-Patient scheduled for left heart cath later today
-EKGs continue to show PVCs
-Will get repeat echo today, previous echo was limited
-Was on amiodarone drip but was stopped due to bradycardia, continue monitoring for arrhythmias on telemetry
-Repeat CT head today
-EEG shows possible diffuse cortical dysfunction without focal abnormality and with no seizure activity noted
# Acute respiratory failure with hypoxia that required ventilation, now extubated
-Currently requiring 4 L of oxygen, continue supplemental oxygen as needed
-Continue weaning off of the supplemental oxygen to room air as possible, maintain SpO2>94%
-Continue aspiration precautions
-Continue DuoNebs BID, received treatment this morning as patient continued to wheeze
-Discontinued Afrin nasal spray due to its vasoconstrictive properties
# Acute on chronic HFrEF
-EF was approximately 20% on recent echo
-Repeat echo scheduled for today
-Lactated Ringer's discontinued
-Found to have trace pedal edema bilaterally
-Patient given dose of Lasix
# Shock in the setting of suspected aspiration pneumonia and possibly UTI
-shock state now resolved
-Has not required pressors since 11/13/2024
-Was on lactated Ringer's, discontinued
# Aspiration pneumonia
-Was febrile last night with Tmax of 101.0F, fever now resolved
-Continues to have leukocytosis which is not downtrending
-Chest x-ray for tomorrow morning
-Will continue Unasyn, respiratory cultures grew Staph aureus, awaiting sensitivities
-Aspiration precautions
-Speech evaluation today, n.p.o. until left heart cath
# Abnormal UA with concern for UTI
-Urine cultures grew Enterococcus species
-Awaiting sensitivities
-Was febrile last night with Tmax of 101.0F, fever now resolved
-Continues to have leukocytosis which is not downtrending
-Continue Unasyn
-Has Fontenot, will try to take out as possible
# ALBER, baseline creatinine around 1.3
-Creatinine continues to be elevated around 1.6
-Continue monitoring
# Type 2 diabetes requiring insulin
-At home was taking around 38 units of glargine at night along with Januvia, repaglinide and metformin
-Patient transition from insulin drip to subcutaneous insulin
-Currently on 25 units glargine subcutaneous daily, aspart 4 units with meals and moderate insulin sliding scale
-Glucose readings around 200, HbA1c is 8.9%
-Diabetes nurse practitioner consulted, input appreciated
# BPH with urinary retention
-Currently has Fontenot, will try to take Fontenot out as possible
-Takes Flomax at home, restarted
# History of bladder stones
-CT abdomen pelvis from 11/12/2024 showed possible calcified focus along the ventral margin of the bladder
-Scheduled urology appointment in outpatient setting
-No need for urology consult at this time, cystoscopy not needed at this point as no suspicion for urinary stone
# Elevated troponin most likely secondary to ischemic cardiac disease
-Troponin peaked, no longer trending
# Transaminitis
-Most likely secondary to ischemia from cardiac arrest
-Resolving
-Continue monitoring CMP
# Bilateral rib fractures post CPR
-Increased pain may be causing problems with breathing
-Pain control as necessary
-CPAP as required to help with hypoxia
# Obstructive sleep apnea
-On CPAP at home as per
-Continue CPAP treatment at night
Diagnostic imaging:
CR Chest Portable - 1 View (11/15/2024):
The endotracheal tube and the enteric tube have been removed. Mild elevation of the left hemidiaphragm. Adjacent atelectasis in the left lung base. No large pleural effusion or pneumothorax. Stable enlargement of the cardiac silhouette.
Head CT (11/12/2024): No acute intracranial abnormality noted.
CTA chest, CT abdomen/pelvis with IV contrast (11/12/2024):
Respiratory motion degradation. No filling defect to indicate pulmonary embolism with confidence to the proximal subsegmental divisions of the pulmonary arteries.
No aortic aneurysm or dissection.
No pneumothorax.
Costal cartilage and rib fractures, as described. Trace focus of air in the anterior lower left pericardial fat.
Moderate diffuse bilateral dependent consolidation, likely atelectasis. Mild asymmetric disproportionate consolidation in the posterior left upper lobe. Possible pneumonia. Scattered patchy mild airspace opacity in the upper lungs, likely related to
hypoinflation.
No acute inflammatory process within the abdomen or pelvis.
No hydronephrosis or obstructive uropathy. Bilateral renal cysts.
Mild distal abdominal aortic ectasia measuring up to 3.4 cm, without significant change. No adenopathy.
Mild diverticulosis. No acute diverticulitis. No bowel obstruction.
Echocardiogram (11/12/2024):
Extremely technically limited study.
LV function is severely reduced with EF approximately 20%. Regional wall motion
abnormalities cannot be excluded. Recommend repeat full echo with contrast once
patient is stabilized.
Subjective Dataa
Subjective Data
Date of Service:
Date of Service: November 15, 2024
Chief Complaint: Education Assistant Follow Up
Subjective:
Patient seen with at bedside while undergoing EEG. Patient says that he has been feeling better, does not remember what happened to him but is now in better spirits. Continues to have chest pain from fractures post CPR. Continues to require
supplemental oxygen and has increased wheezing.
Review of Systems
General: Other (No acute distress)
HEENT: Other (None)
Cardiopulmonary: Wheezing, Chest Pain and Edema (Bilateral lower extremity edema)
GI: Other (None)
Neuro: Confused (Mild confusion, does not remember what brought him into the hospital)
Genitourinary: Fontenot
Objective Data
Data Reviewed
Vital Signs / I&O / Oxygen:
Vital Signs
Temp Pulse Resp BP Pulse Ox
99.8 F 87 24 121/82 99
11/15/24 07:02 11/15/24 08:00 11/15/24 08:00 11/15/24 06:00 11/15/24 08:00
Intake and Output
11/14/24 11/15/24 11/16/24
06:59 06:59 06:59
Intake Total 2074.5 / 2185.9 2444.8 / 2444.8
Output Total 805 / 885 2620 / 2620
Balance 1269.5 / 1300.9 -175.2 / -175.2
SaO2 [ASV] 99
SaO2 [A/C] 99
SaO2 99
Nasal Cannula flow liters per 4
minute
Physical Exam
General: Respiratory Distress (negative), Pain (Anterior chest/ribs), Chills (negative) and Sweats (negative)
HEENT: Normocephalic and Anicteric
Cardiovascular: S1-S2, Regular Rhythm (With regular PVCs) and Peripheral Edema (Trace pedal edema bilateral lower extremities)
Respiratory: Wheeze, Crackles (Bilateral) and Non-Labored Respirations
GI: Soft, Distended (Abdominal obesity), Non Tender and Normal Bowel Sounds
Neurology: AO x 3 and Tremors (negative)
Skin: Warm and Dry
Labs/Micro/Reports
Lab Data
11/14/24 22:00
11/15/24 06:00
Laboratory Results
11/14/24 11/14/24 11/14/24
09:58 12:00 14:05
PT
INR
APTT 76.4 H
pH 7.39 Cancelled
pCO2 35 Cancelled
pO2 184 H Cancelled
HCO3 21.2 Cancelled
O2 Delivery Level 40% vent Cancelled
11/14/24 11/14/24 11/15/24
18:00 20:00 02:43
PT 15.5 H
INR 1.20
APTT 68.5 H 60.6 H
pH Cancelled
pCO2 Cancelled
pO2 Cancelled
HCO3 Cancelled
O2 Delivery Level Cancelled
Microbiology
11/13/24 11:45 Nose MRSA Screen - Preliminary
Culture in Progress
11/13/24 11:45 Blood/Venous Blood Culture - Preliminary
No Growth in 24 hours- Final report to follow
11/12/24 17:49 Urine Urine Culture - Preliminary
Enterococcus species
11/13/24 11:52 Endotracheal Respiratory Culture - Preliminary
11/13/24 11:52 Endotracheal Gram Stain - Preliminary
11/13/24 11:45 Urine Legionella Urinary Antigen - Final
Negative for Legionella pneumophila Serogroup 1 antigen.
A negative result does not rule out the possiblity of
Legionella infection due to other serogroups or species of
Legionella. Clinical correlation is recommended.
11/13/24 11:45 Urine Streptococcus pneumoniae Antigen (M - Final
Negative for Streptococcus pneumoniae antigen.
A negative result does not exclude infection with
Streptococcus pneumoniae. Clinical correlation is
recommended.
[2024-11-15 08:22] LABS: Glucose - Point of Care 245 mg/dl (70-99)
[2024-11-15] MEDS: LANTUS 0.25 UNITS SC (08:25)
--- NOTE | 2024-11-15 08:27 | PN.DE.MGMTRT ---
Insulin Management
- -
11/15/2024: Diabetes Management Consult
69 year old male with PMH: Chronic HFrEF, A-fib not on AC s/p PVI + DCCV, CAD s/p stents x 4, HTN, HLD, T2DM on insulin, HUANG, BPH, GERD, glaucoma, allergies, bladder stones, who presented with cardiac arrest. He had passed out in the parking lot
after going target-shooting with his and family friend, and pt became completely unresponsive while in the airport shuttle driver seat. His family started CPR on him but his body positioning was difficult in the car so they grabbed someone from inside a store
and they continued CPR until EMS arrived. CPR was reportedly started immediately. EMS said initial rhythm was VF, and delivered 5 shocks, 4mg of epinephrine, 150 mg lidocaine and 2 g of magnesium for reported torsades de pointes. He was intubated
in the field with ROSC obtained and then brought here to ER.
Pt awake, alert, oriented, resting in bed, c/o chest/rib pains due to rib fxs, able to discuss diabetes care plan. at bedside-very supportive.
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
states he uses Lito 2 CGM and sees and Endo in [place]. A1C 8.9%, Cr 1.6, eGFR 45.78
Pt was started on Glycemic protocol for hyperglycemia and was transitioned off to SQ insulin on 11/14 @1600. Oral meds on HOLD due to ALBER.
His glucose has remained elevated since transitioning him off insulin drip, glucose range of [address] Torres has started him on AC NovoLog 4 units and changed his corrective insulin to moderate scale.
Pt received Lantus 25 units @ hS, FBG was 245 this AM, Will increase Lantus to 28 units.
Discussed with Nurse to use corrective scale and HOLD AC insulin if pt remains NPO
Diabetes History
- -
Type of Diabetes: 2 requiring insulin
Pre-Admission Diabetes Regimen
11/14/24 11/14/24 11/14/24
09:58 10:27 14:00
Creatinine Cancelled 1.7 H Cancelled
11/14/24 11/14/24 11/15/24
18:00 22:00 02:43
Creatinine Cancelled Cancelled 1.6 H
11/15/24
06:00
Creatinine Cancelled
Lab Results
Hemoglobin A1c Cancelled 11/12/24 20:45
Insulin Pump Settings
IP Diabetes Regimen
11/14/24 11/14/24 11/14/24
08:57 09:53 09:58
Glucose Cancelled
POC Glucose 218 H 206 H
11/14/24 11/14/24 11/14/24
10:27 11:20 12:02
Glucose 176 H
POC Glucose 180 H 148 H
11/14/24 11/14/24 11/14/24
12:57 13:59 14:00
Glucose Cancelled
POC Glucose 132 H 118 H
11/14/24 11/14/24 11/14/24
14:58 15:57 17:34
Glucose
POC Glucose 105 H 114 H 173 H
11/14/24 11/14/24 11/14/24
18:00 22:00 23:16
Glucose Cancelled Cancelled
POC Glucose 262 H
11/15/24 11/15/24 11/15/24
02:43 05:42 06:00
Glucose 261 H Cancelled
POC Glucose 222 H
11/15/24
08:20
Glucose
POC Glucose 245 H
Meal type: Dinner
Amount consumed: 60%
Patient Education
--- NOTE | 2024-11-15 09:18 | EEG.RPT ---
Electroencephalogram Report
Recording
Date of EE11/15/24
Type of EEG: Routine
Length of EEG recordin minutes
Done with Video Recording: Yes
Patient Status: Inpatient
Recording Conditions: Awake and Drowsy
Hyperventilation Performed: No
Photic Stimulation Performed: Yes
Report
LESS THAN 1 HOUR REPORT
LESS THAN 1 HOUR EEG INTERPRETATION:
Moderately abnormal EEG for age due to low amplitude and bihemispheric slowing
CLINICAL CORRELATION:
This study was suggestive of diffuse cortical dysfunction without focal abnormality. No seizures were recorded.
Clinical correlation is advised.
METHODS:
A 21 channel digitized electroencephalogram (EEG) was performed in the ICU. The 10/20 international system of electrode placement was used with ECG and lateral/vertical eye movements recorded. Video was recorded. Persyst quantitative EEG analysis
was perfomed.
QUALITY OF STUDY:
Good
ELECTROENCEPHALOGRAPHER IMPRESSION(S):
Background
Low amplitude unorganized anterior-posterior voltage gradient of beta activity
There were no significant asymmetries of background activity noted.
Sleep
Not recorded
Photic Stimulation
Failed to activate the record
ECG
Unremarkable
[2024-11-15] MEDS: LASIX 40 MG IV (10:02)
[2024-11-15] MEDS: AFRIN NASAL SPRAY NASAL (10:17)
[2024-11-15] MEDS: MIRALAX TUBE (10:17)
[2024-11-15 10:44] LABS: APTT 59.4 Sec (23.4-35.0)
[2024-11-15 11:23] LABS: Magnesium 2.1 mg/dl (1.6-2.3)
[2024-11-15] MEDS: NOVOLOG FLEXPEN-MODERATE RESISTANCE 5 UNITS SC (11:48)
[2024-11-15] MEDS: NOVOLOG FLEXPEN 4 UNITS SC ×2 (11:48→18:23)
[2024-11-15 11:49] LABS: Glucose - Point of Care 267 mg/dl (70-99)
[2024-11-15] MEDS: FLOMAX 0.8 MG PO (12:14)
[2024-11-15] MEDS: TYLENOL ORAL SOLUTION 650 MG PO ×3 (12:14→22:57)
--- NOTE | 2024-11-15 13:53 | W.PN.HOSP.TC ---
Addendum entered and electronically signed by Radhika Interiano MD 11/15/24 15:36:
I saw and evaluated the patient independently. I reviewed the resident�s note and agree with findings and plan as documented by Dr. Hines.
GENERAL: well developed, well nourished, obese male in no apparent distress
HEENT: NC/AT
HEART: regular rate and rhythm, +S1, +S2
LUNGS : decreased BS bilaterally
ABDOM: soft, nontender, nondistended, + bowel sounds
EXT: no cyanosis, clubbing, or edema
NEUROLOGIC: grossly intact
: schroeder
Witnessed Cardiac Arrest due to presumed Ventricular Fibrillation with CPR -- Reported V-Fib on initial tracings in patient with known heart disease/cardiomyopathy--cont amiodarone--finished targeted temp protocol and now normothermic--off
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
rib fractures--from CPR--pain control--PT/OT
troponin elevation--could be from CPR most likely--less so primary cardiac event--peaked at 2.09 and downtrending
VDRF--intubated for cardiac arrest--extubated
Lactic Acidosis/Abnormal LFTs--likely from cardiogenic shock from cardiac arrest--lactate acidosis resolved--restart diuresis
ASCVD - s/p prior stents - most recent about 20y ago per -- No recent issues with chest pain, exertional dyspnea, etc-- EKG with non-specific ST changes but no evident ST elevations noted-- IV heparin, daily ASA, etc.
Chronic HFrEF--LVEF=20% compared with 35-40% in 202--CXR shows some degree of pulmonary edema - but no rales appreciated on exam--starting IV diuresis
Paroxysmal Atrial Fibrillation--s/p cardioversions and ablations--Currently in sinus rhythm--Not on any antiarrhythmic medications. Patient has declined OAC in the past.
Essential Hypertension--hold meds as needed--restart as able pending BP
Type 2 DM--Current hyperglycemia likely secondary to acute event-- notes that glucose has been well-controlled recently--Continue basal insulin-- Cover with SSI as needed-- A1C 8.9--s/p glycemic protocol
Obesity due to excess calories--affects all aspects of care- - Encourage healthy diet and activity as able for goal of weight loss.
HUANG on CPAP-- resume nightly CPAP
BPH--Schroeder placed in the ED-- Patient scheduled for TURP in December.
DVT Proph--On therapeutic heparin.
Code Status: Full
Original Note:
Today's Communication/Plan
-
Left heart cath today
Stop IV fluids
Start IV Lasix
Echo today
CT head
repeat CXR in am
PT/OT
Assessment / Plan
Assessment / Plan
Impression
Witnessed cardiac arrest due to presumed ventricular fibrillation
Troponin elevation
Acute hypoxic respiratory insufficiency
Lactic acidosis/abnormal LFTs
ASCVD s/p prior stents
Acute on chronic HFrEF
Paroxysmal atrial fibrillation
Essential hypertension
Type 2 diabetes
Obesity due to excess calories
HUANG on CPAP
BPH
Plan
Witnessed cardiac arrest due to presumed atrial fibrillation with CPR
Reported V-fib in ED initial tracing later torsades de pointes
Finished targeted temperature control now normothermic
Patient extubated on 11/14/2024
Off pressors
Left ventricular ejection fraction is 20% on echo, reduced from 34 to 40% in 2021
Plan for left heart cath today--creatinine 1.6 at baseline
Repeat echo today
Head CT
PT/OT
Elevated troponin
Likely due to cardiac arrest and stress
Peaked at 2.09 and downtrending
Acute hypoxic respiratory insufficiency
On 5 L of oxygen, wean as able
Repeat chest x-ray in a.m.
Lactic acidosis/abnormal LFTs
Likely cardiogenic shock from cardiac arrest
Lactate within normal limits- 1.7
LFTs downtrending
ASCVD s/p prior stents
Around 20 years ago per
No recent chest pain/shortness of breath/exertional dyspnea
EKG with nonspecific ST changes but no evidence of ST elevation
Continue IV heparin and daily aspirin
Chronic HFrEF
LVEF stable at 20%
Stop IV fluids and start IV lasix
Repeat echo
Paroxysmal Atrial Fibrillation--s/p cardioversions and ablations
Currently in sinus rhythm
Not on any antiarrhythmic medications.
Patient has declined OAC in the past.
Essential Hypertension
Resume to oral medication
Type 2 DM
Current hyperglycemia likely secondary to acute event--
notes that glucose has been well-controlled recently--
Continue regular insulin
Plan to transition to basal and bolus insulin with goal glucose 142- 180
Obesity due to excess calories
affects all aspects of care
Encourage healthy diet and activity as able for goal of weight loss.
HUANG on CPAP--Currently on vent support - resume nightly CPAP after extubated.
BPH--Schroeder placed in the ED-- Patient scheduled for TURP in December.
DVT Proph--On therapeutic heparin.
Code Status: Full
Anticipated Discharge: > 48 hours
Subjective/Interval History
-
Date of Service: November 15, 2024
Extubated yesterday, on 4 to 5 L of oxygen
Objective Data
-
Labs:
Laboratory Results
11/15/24 11/15/24 11/15/24
02:43 06:00 10:09
PT 15.5 H
INR 1.20
APTT 60.6 H 59.4 H
Sodium 138 Cancelled
Potassium 4.8 Cancelled
Chloride 106 Cancelled
Carbon Dioxide 23 Cancelled
BUN 26 H Cancelled
Creatinine 1.6 H Cancelled
Glucose 261 H Cancelled
Calcium 8.7 Cancelled
Total Bilirubin 1.1
AST 53
ALT 163 H
Alkaline Phosphatase 58
11/15/24
17:45
PT
INR
APTT Pending
Sodium
Potassium
Chloride
Carbon Dioxide
BUN
Creatinine
Glucose
Calcium
Total Bilirubin
AST
ALT
Alkaline Phosphatase
Vital Signs:
Vital Signs
Temp Pulse Resp BP Pulse Ox
100 F 89 16 130/89 95
11/15/24 11:13 11/15/24 12:00 11/15/24 12:00 11/15/24 12:00 11/15/24 11:45
I&O
11/14/24 11/15/24 11/16/24
06:59 06:59 06:59
Intake Total 2074.5 / 2185.9 2444.8 / 2524.8 444 / 444
Output Total 805 / 885 2620 / 2715 3035 / 3035
Balance 1269.5 / 1300.9 -175.2 / -190.2 -2591 / -2591
Review of Systems
-
All other systems: Reviewed and negative
Physical Exam
-
General: Comfortable and Morbidly Obese
HEENT: Normocephalic and Atraumatic
Respiratory: Clear to Auscultation
Cardiac: Regular Rhythm and S1/S2; Negative Murmur or Rub
GI: Soft, Nontender and Nondistended
Musculoskeletal: No Edema
Neuro: AO x 3
Psych: Calm
Data Reviewed
-
Diagnostic Radiology: Image personally visualized and interpreted, Report Reviewed by me and Discussed with Physician
Labs: Labs Reviewed by me and Discussed with Physician
--- NOTE | 2024-11-15 14:03 | PTCARENOTE ---
Oxygenation improved. Pt encouraged to rest before his CT scan. eremains at the bedside. No report yet from his ECHO earlier this morning.
--- NOTE | 2024-11-15 15:40 | PTCARENOTE ---
Dr. Ewing TT'd pt progress with diuresis, -2.5 liters thus far. No scheduled left heart catheterization, ECHO report pending. Will repeat labs as ordered. Pt and his are aware of the plan of care.
--- NOTE | 2024-11-15 15:53 | W.PN.NEURO.1 ---
Today's Communication / Plan
-
.
Subjective/Objective
Subjective Data
Date of Service: November 15, 2024
Neurology follow-up note.
24-hour events: febrile, normotensive.
Mr. Hancock endorses intermittent pleuritic pain worse with cough as well as intermittent floaters.
No reports of headaches, change in vision or strength.
Unable to have brain MRI due to dyspnea with recumbency.
Continues to be on heparin gtt.
ua cx-Enterococcus faecalis.
Repeat CT head(11/15/2024) �mild subcortical, deep, and periventricular white matter low-attenuation, compatible with changes of chronic small vessel ischemic disease.
Routine EEG ()�mild generalized slowing.
MAR: Ampicillin/sulbactam.
PMH: CAD, PA-Fib(s/p PVI), CHF (EF 35% in 2021), BMI 43, HTN, DLP, DM, GERD, SANDRA, obstructive uropathy
PSH: PTCI, cystolitholopaxy/stent placement, BL TKA,, bilateral cataract surgery
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
FH: Noncontributory to current presentation
All: Labetalol, metoprolol, penicillin
ROS: Positive for pleuritic chest pain, change in memory
General: In no acute distress
Cardio: regular rate
Mental Status: Awake oriented to name, person, date of , year. Did not know the month (September) president. Able to do serial sevens. Follows simple requests consistently. Labile mood.
Cranial Nerves: Pupils are 3 mm, surgical. Extraocular movements intact. Visual meehan full to confrontation. No facial weakness, hearing is preserved. Mild dysarthria
Motor: No pronator or leg drift.
Reflexes: Limited due to body habitus.
Coordination: No dysmetria
Gait: Deferred
Assessment and Plan:
I. Encephalopathy, likely hypoxic, vascular, infectious?.
II. PA A-fib
III. S/p cardiac arrest
- Continue Telemetry monitoring
- Avoid cerebral hypoperfusion
- Please obtain brain MRI without contrast when feasible.
- Stat CT head if change in neuroexam
- PT, dysphagia evaluation
- OP neuropsychological evaluation
- The case was discussed with patient's spouse
- Please recall neurology services any questions or concerns
I personally reviewed all radiology and labs along with past medical records pertinent to current medical problems. Total time spent in patient care is 35 minutes.
Thank you for allowing us to participate in the care of this patient. Please do not hesitate to contact us with any questions or concerns.
Objective Data
Vital Signs
Temp Pulse Resp BP Pulse Ox
37.7 C 84 17 115/81 96
11/15/24 13:59 11/15/24 13:45 11/15/24 13:45 11/15/24 13:00 11/15/24 13:59
Lab Results
11/14/24 22:00
11/15/24 06:00
PT 15.5 Sec (11.4-14.6) H 11/15/24 02:43
INR 1.20 11/15/24 02:43
APTT 59.4 Sec (23.4-35.0) H 11/15/24 10:09
Sodium Cancelled 11/15/24 06:00
Potassium Cancelled 11/15/24 06:00
BUN Cancelled 11/15/24 06:00
Glucose Cancelled 11/15/24 06:00
Calcium Cancelled 11/15/24 06:00
Phosphorus 3.9 mg/dl (2.5-4.5) 11/15/24 02:43
Xqy-Z-Borauiifxnf Pept 638 pg/ml 11/12/24 17:49
LDL Cholesterol, Calc 18 mg/dl 11/13/24 07:48
Ur Buprenorphine Negative (Negative) 11/12/24 17:49
Patient Allergies
bee venom protein (honey bee) Allergy (Verified 11/12/24 19:03)
Swelling
Penicillins Allergy (Verified 11/12/24 19:03)
Rash
labetalol Adverse Reaction (Verified 11/12/24 19:03)
Nausea / Vomiting
metoprolol Adverse Reaction (Verified 11/12/24 19:03)
Nausea / Vomiting
Vital Signs and Labs
-
Vital Signs and Labs:
Vital Signs
Temp Pulse Resp BP Pulse Ox
37.7 C 84 17 115/81 96
11/15/24 13:59 11/15/24 13:45 11/15/24 13:45 11/15/24 13:00 11/15/24 13:59
Lab Results
11/14/24 22:00
PT 15.5 Sec (11.4-14.6) H 11/15/24 02:43
INR 1.20 11/15/24 02:43
APTT 59.4 Sec (23.4-35.0) H 11/15/24 10:09
Sodium Cancelled 11/15/24 06:00
Potassium Cancelled 11/15/24 06:00
BUN Cancelled 11/15/24 06:00
Glucose Cancelled 11/15/24 06:00
Calcium Cancelled 11/15/24 06:00
Phosphorus 3.9 mg/dl (2.5-4.5) 11/15/24 02:43
Rie-Q-Vnysbzhqewi Pept 638 pg/ml 11/12/24 17:49
LDL Cholesterol, Calc 18 mg/dl 11/13/24 07:48
Ur Buprenorphine Negative (Negative) 11/12/24 17:49
Medications
-
Medications:
Generic Name Dose Route Start Last Admin
Trade Name Freq PRN Reason Stop Dose Admin
Acetaminophen 650 mg 11/15/24 08:42 11/15/24 12:14
Acetaminophen (Oral Solution) 650 Mg/20.3 Ml Cup PO 11/17/24 00:00 650 mg
Q6 FLO Administration
Albuterol/Ipratropium 3 ml 11/13/24 20:00 11/15/24 07:56
Ipratropium 0.5/Albuterol 3 Mg (3 Ml Ampul) INH 3 ml
R BID FLO Administration
Protocol
Albuterol/Ipratropium 3 ml 11/13/24 11:29
Ipratropium 0.5/Albuterol 3 Mg (3 Ml Ampul) INH
R Q4HPRN PRN
SOB/Wheezing
Protocol
Aspirin 81 mg 11/15/24 08:42
Aspirin 81 Mg Chewable Tablet PO 12/11/24 09:30
DAILY FLO
Atorvastatin Calcium 80 mg 11/15/24 18:00
Atorvastatin (Lipitor) 80 Mg Tablet PO 12/13/24 17:59
QPM FLO
Dextrose 12.5 grams 11/14/24 17:00
Dextrose 50% (0.5 Grams/Ml) 50 Ml Syringe IV 12/12/24 16:59
[id number] PRN
hypoglycemia
Protocol
Glucagon 1 mg 11/12/24 20:27
Glucagon 1 Mg Vial IM 12/10/24 20:26
PRN PRN
hypoglycemia
Protocol
Heparin Sodium 25,000 units in 250 mls @ 0 mls/hr 11/12/24 18:45 11/15/24 08:09
Heparin 56836 Units/250 Ml IV 250 mls
PER PROTOCOL FLO Administration
Protocol
Per Protocol
Ampicillin Sodium/Sulbactam 120 mls @ 240 mls/hr 11/13/24 12:00 11/15/24 12:14
Sodium 3 gm/ Sodium Chloride IV 120 mls
Q6H FLO Administration
Insulin Glargine 25 units/ 0.25 mls @ 0 mls/hr 11/15/24 08:00 11/15/24 08:25
Device SC 05/19/25 07:59 0.25 mls
DAILY FLO Administration
As Directed
Insulin Aspart 0 units 11/14/24 18:00 11/15/24 11:48
Insulin Aspart Moderate Resistance 300 Units/3 Ml Pen.Injctr SC 12/12/24 17:59 5 units
Q6 FLO Administration
Protocol
Insulin Aspart 4 units 11/15/24 11:30 11/15/24 11:48
Insulin Aspart (100 Units/Ml) 3 Ml Flexpen SC 12/13/24 11:29 4 units
AC FLO Administration
Pantoprazole Sodium 40 mg 11/12/24 20:00 11/15/24 08:13
Pantoprazole Sodium 40 Mg/10 Ml Vial IV 12/10/24 19:59 40 mg
BID FLO Administration
Polyethylene Glycol 17 grams 11/15/24 08:42
Polyethylene Glycol Powder 17 Grams Packet PO 12/11/24 07:59
DAILY FLO
Sodium Chloride 0 flush 11/12/24 21:00
Sodium Chloride 0.9% (Flush) Syringe IV 12/10/24 20:59
PER PROTOCOL FLO
Sodium Chloride 10 ml 11/13/24 20:00 11/15/24 08:13
Sodium Chloride 0.9% (Preservative Free) 10 Ml Vial IV 12/11/24 19:59 10 ml
BID FLO Administration
Tamsulosin HCl 0.8 mg 11/15/24 11:00 11/15/24 12:14
Tamsulosin 0.4 Mg Capsule PO 12/13/24 10:59 0.8 mg
DAILY FLO Administration
Home Medications
-
Home Medications
atorvastatin 80 mg tablet 80 mg PO HS High cholesterol 04/04/22
bisoprolol fumarate 5 mg tablet 5 mg PO DAILY Blood pressure 04/04/22
insulin glargine 100 unit/mL (3 mL) subcutaneous pen (Basaglar KwikPen U-100 Insulin) 38 unit SC HS Diabetes 04/04/22
latanoprost 0.005 % eye drops 1 drp RIGHT EYE HS Eye condition 04/04/22
lisinopril 5 mg tablet 5 mg PO DAILY Blood pressure 04/04/22
metformin 500 mg tablet,extended release 24 hr See Rx Instructions .Route .COMPLEX Diabetes 04/04/22
omeprazole 20 mg capsule,delayed release 20 mg PO BID Gastrointestinal issue 04/04/22
sitagliptin phosphate 100 mg tablet (Januvia) 100 mg PO DAILY Diabetes 04/04/22
finasteride 5 mg tablet 5 mg PO DAILY 30 days #30 tabs 04/10/22
tamsulosin 0.4 mg capsule 0.8 mg (2 x 0.4 mg) PO DAILY 30 days #60 caps 04/10/22
naltrexone 50 mg tablet 25 mg PO DAILY Neurological Condition 11/12/24
potassium chloride 20 mEq tablet,extended release 20 meq PO DAILY Electrolyte Repletion 11/12/24
repaglinide 1 mg tablet See Rx Instructions .Route .COMPLEX Diabetes 11/12/24
spironolactone 25 mg tablet 12.5 mg PO BID Blood Pressure 11/12/24
aspirin 81 mg tablet 81 mg PO DAILY Blood Clot Prevention/Tx 11/15/24
fexofenadine 180 mg tablet 180 mg PO DAILY Allergies 11/15/24
magnesium oxide 400 mg (241.3 mg magnesium) tablet (MagOx) 400 mg Electrolyte Repletion 11/15/24
multivitamin 1 tab PO DAILY Supplement 11/15/24
zinc 50 mg tablet 50 mg PO DAILY PRN if feeling sick 11/15/24
--- NOTE | 2024-11-15 16:09 | W.PN.CD ---
Today's Communication / Plan
-
Coronary angiography.
Impression / Plan
-
Impression/Plan: 69-year-old male with history of ischemic cardiomyopathy with recovered ejection fraction (EF 53% in 2022), atrial fibrillation s/p PVI (2005, 2015), CAD with reported remote PCI in 2007, insulin-dependent diabetes, obesity
presents to the emergency room via EMS status post out of hospital cardiac arrest.
#Wyy-yl-egpmeyvb arrest
-Occurred while getting into the car. Became pale and unresponsive. Bystander CPR started immediately. Initial rhythm VF. 30-35 minutes ACLS in the field prior to ROSC. Received 5 total shocks, lidocaine bolus, multiple rounds of epinephrine,
and 2 mg magnesium. Intubated in the field. Reportedly had some mental status after ROSC.
-Most likely cardiac in nature given his significant past cardiac history and VF. Initially on amiodarone infusion but stopped due to bradycardia.
-Emergent LHC deferred given lack of definitive ST elevations, no ongoing arrhythmias or evidence of cardiogenic shock.
-S/p targeted temperature management and now has regained mental status.
-Coronary angiography to clarify coronary anatomy.
#Hypotension
-Requiring norepinephrine. Suspect due to sedation as he had high sedation needs with propofol/fentanyl. Cardiogenic shock is also possible.
-TTE/: Extremely technically limited study, EF 20% (per outside report it had previously recovered --see below)
-Continue norepinephrine for goal MAP >65 mmHg
-LHC tomorrow
#Troponin elevation
-Troponin peaked at 2.09 after 35 minutes of CPR. ECG no STEMI. Most likely due to initial ischemic event causing OOH arrest and shocks in the field
-ACS treatment as above
#HFrEF (EF 30-35%)
-Acute on chronic.
-Follows with Dr. Muñoz from [facility] ([place]). Reviewed outside records. Last TTE August 2022: Moderately dilated LV, LVEF 53%, severe LA dilation, mild MR, moderate PH.
-Was on BB, ACEi, and Ashkan as an outpatient.
-Add back GDMT when able.
#CAD with remote PCI
-Chronic.
-Had 4 stents placed in 2007. Does not know which vessels.
-Continue ASA.
-Resume statin.
-Coronary angiography to clarify coronary anatomy.
#Paroxysmal atrial fibrillation status post PVI
-Declined anticoagulation in the past.
-Outpatient cardiology records requested.
#Diabetes
-Management per primary.
-He would benefit from SGLT2i and GLP-1 medications.
CCT: 42 minutes
Subjective/Interval History:
Furosemide 40 mg given yesterday.
Weight down 1.1 kg from yesterday.
Febrile to 38.3 (11/14/2024 @ 22:51).
SaO2 95% on 4LNC.
Staphylococcus aureus isolated from endotracheal tube.
DATA:
CT Head, 11/15/2024:
IMPRESSION:
No acute intracranial abnormality.
Echocardiogram, 11/15/2024:
CONCLUSIONS
Technically difficult study - Definity used.
Moderately reduced left ventricular systolic function.
Global hypokinesis with left ventricular ejection fraction of 30-35% by visual
estimate.
No significant valvular disease.
Mildly dilated aortic root.
Compared to previous echo 11/12/24, the ejection fraction has improved from 20%
on the prior study.
EEG, 11/15/2024:
CLINICAL CORRELATION:
This study was suggestive of diffuse cortical dysfunction without focal abnormality. No seizures were recorded.
Clinical correlation is advised.
Physical Exam
Vital Signs/Labs
Vital Signs
Temp Pulse Resp BP Pulse Ox
37.7 C 106 25 123/81 93
11/15/24 13:59 11/15/24 16:00 11/15/24 16:00 11/15/24 15:43 11/15/24 16:00
11/14/24 11/15/24 11/16/24
11:59 11:59 11:59
Actual Weight 158.6 kg 157.5 kg
11/14/24 22:00
PT 15.5 Sec (11.4-14.6) H 11/15/24 02:43
INR 1.20 11/15/24 02:43
APTT 59.4 Sec (23.4-35.0) H 11/15/24 10:09
Magnesium 2.1 mg/dl (1.6-2.3) 11/15/24 10:09
Triglycerides 124 mg/dl (10-149) 11/15/24 02:43
LDL Cholesterol, Calc 18 mg/dl 11/13/24 07:48
VLDL Cholesterol, Calc 37 mg/dl (0-30) H 11/13/24 07:48
HDL Cholesterol 25 mg/dl 11/13/24 07:48
11/12/24
17:49
Lmj-B-Nhqjlxsfyau Pept 638
LAB Results
11/12/24 11/12/24 11/13/24
17:49 20:27 00:41
Troponin I 0.023 Cancelled 1.330 H* D
11/13/24 11/13/24 11/13/24
02:28 07:48 11:45
Troponin I 1.380 H* Cancelled 1.840 H*
11/13/24 11/13/24 11/14/24
18:04 19:58 02:00
Troponin I 2.070 H* 2.090 H* 1.970 H*
Physical Exam
Constitutional: No acute distress and Comfortable
EENT: Anicteric and Moist mucous membranes
Cardiovascular: Rhythm & rate is regular, Pedal edema is absent, JVD pressure is normal, S1S2 is normal and Murmur/rub/gallop absent
Respiratory: Respiratory effort normal, Lungs clear to auscul., Wheeze Absent, Crackles Absent and Rhonchi Absent
GI: Soft, Distention absent, Flat, Non tender and Normal bowel sounds
Neuro/Psych: AO x 3
Data Reviewed
-
Date of Service: November 15, 2024
Medical Decision Making: Reviewed Test Results, Tests Ordered and Test Interpretation
EKG: Tracing Personally Visualized and interpreted and Report Reviewed by me
Echo: Report Reviewed by me
X-Ray/CT/US/MRI/NUC/PET: Image Personally Visualized and interpreted and Report Reviewed by me
Labs: Labs Reviewed by me
Old Records: Reviewed
--- NOTE | 2024-11-15 16:19 | CM ---
Patient seen at bedside with present and physicians. Patient stated that patient uses the CPAP at home. Patient stated that she was concerned about the many issues that patient has currently dealing with. Patient indicated that
she wanted to have patient issues coordinated. Patient bus is currently in mobile park in [place]. Patient would be able to receive VN supports pending PCP willingness to coordinate; Dr. Lamb [phone]. Patient for heart cath possibly today
per physician. Discharge planning pending PT/OT and medical treatment plan. CM will continue to follow for discharge planning needs.
Plan; home with VN vs Acute rehab/SNF pending therapy recommendations and medical treatment plan.
[2024-11-15 17:29] LABS: ACT-LR - POC 321 Seconds (116-155)
[2024-11-15 17:40] LABS: Vitamin B12 698 pg/ml (239-931)
--- NOTE | 2024-11-15 17:42 | ITS.CL.CATH ---
Bottle Blowing Machine Tender - Catheterization
Cardiac Catheterization
Procedure Report:
CARDIAC CATHETERIZATION REPORT
Date of Procedure: 11/15/2024
Referring: Candido Christianson M.D.
INDICATION: [id number] cardiac arrest.
PROCEDURE:
1. Left heart catheterization.
2. Coronary angiography.
3. Successful IVUS of the left main coronary artery.
A total of 25 minutes of procedural/moderate sedation was utilized. An independent medical device engineer was present to assist with and help manage the patient's level of consciousness and physiologic status.
ACCESS:
1. 6 [place] right radial artery using a modified Seldinger technique.
CATHETERS:
1. 5 [place] JR4.
2. 5 [place] JL 3.5.
3. 6 [place] JL 3.5 guiding catheter.
HEMODYNAMIC DATA
Weight (kg): 157.4
AO (s/d/x, mmHg): 110/78/91
LV (s/x mmHg): 115/26
LEFT VENTRICULOGRAPHY: Not performed.
CORONARY ANGIOGRAPHY
Dominance: Right.
Left Main: Normal size, trifurcating vessel. There is an eccentric, difficult to visualize, 40-50% lesion in the distal vessel immediately proximal to the origin of the LAD.
LAD: Normal size vessel giving rise to 1 significant diagonal. There are minor luminal irregularities in the proximal vessel.
Ramus: Normal size vessel supplying the majority of the lateral wall. There is no coronary artery disease.
Circumflex: Normal size, nondominant vessel that is essentially a single conduit supplying the inferolateral wall. There is a 30% lesion in the mid vessel.
RCA: Large size, dominant vessel. There is a 20% lesion in the proximal vessel. There is a 40% lesion in the distal vessel, proximal to the RPDA origin.
INTERVENTION(S)
1. Successful IVUS of the left main coronary artery, demonstrating nonocclusive atherosclerosis (MLA = 9.0 mm�).
Narrative:
The decision was made to perform intracoronary imaging. The diagnostic catheter was removed over a wire and exchanged for 6 Mozambican JL 3.5 guiding catheter. The guiding catheter was advanced into the ascending aorta and seated in the left main
coronary artery. Additional heparin was given to obtain an ACT greater than 250 seconds. After crossing the lesion with a coronary wire into the LAD, an IVUS catheter was advanced through the guiding catheter and into the ostium of the artery.
Ring down was performed once the imaging crystal was no longer inside of the guiding catheter. The IVUS catheter was advanced into the proximal LAD. Intravascular ultrasound was performed in a retrograde fashion using a slow pullback. Intracoronary
imaging demonstrated a densely calcified area of the distal left main with a large plaque burden. The smallest luminal area was recorded and measured with a minimal luminal area of 9.0 mm�. The IVUS catheter was withdrawn. Final angiography
showed a stable coronary tree with no evidence of disruption. The catheter was disengaged and removed over a standard J-wire.
Closure Device: Vascular band.
Radiation (mGy): 1050.60
DAP (cm2.Gy): 78.5237
Fluoroscopy time (minutes): 6.8
CONCLUSIONS
1. Right dominant circulation with a 20% lesion in the proximal RCA, 40% lesion in the distal RCA, luminal irregularities in the proximal LAD and a 40-50% lesion in the distal left main immediately proximal to the origin of the LAD.
2. Successful IVUS of the 40-50% distal left main lesion, demonstrating nonocclusive minimal luminal area (9.0 mm�).
3. Severely elevated filling pressures (LVEDP = 26 mmHg at 157.4 kg).
RECOMMENDATIONS:
1. Expectant management after cardiac catheterization via right radial approach.
2. Limited weight bearing on the right wrist for one week.
3. Aggressive secondary prevention with high-dose, high potency statin. Goal LDL <55.
4. Continue expectant management of [id number] cardiac arrest.
5. OMT/GDMT as hemodynamics will tolerate.
6. Given his VF arrest with no identifiable revascularizable lesion, the patient should strongly be considered for ICD secondary therapy.
7. Continue aggressive diuresis given severely elevated filling pressures.
Copy to: Candido Christianson M.D., Radhika Garsia M.D.
Enrrique Barth DO, FACC, FACP
[2024-11-15 17:47] LABS: Blood Urea Nitrogen 24 mg/dl (9-20); Calcium 8.8 mg/dl (8.4-10.2); Carbon Dioxide 23 mmol/L (22-30); Chloride 103 mmol/L (98-107); Estimated Creatinine Clearance 77 ml/min; Glucose 277 mg/dl (70-99); Magnesium 1.9 mg/dl (1.6-2.3); Potassium 4.3 mmol/L (3.5-5.1); Sodium 135 mmol/L (135-145); eGFR 53.74
--- NOTE | 2024-11-15 18:10 | PTCARENOTE ---
Received pt from photographic laboratory technician via stretcher. He was transferred to the bed. Right radial TR band intact. Site CDI with old ecchymosis present from prior arterial sticks. Right hand is warm with brisk capillary refill, good radial pulse. He is having
frequent MF PVC's in 4 beat runs. He was placed on CPAP 9 with 4 liters oxygen upon return. Exertional wheeze. Right AC w/0.9nss 500ml bag infusing. He was informed of the plan of care, will reinforce due to pt's short term memory loss.
[2024-11-15] MEDS: LIPITOR 80 MG PO (18:20)
[2024-11-15 18:24] LABS: Glucose - Point of Care 244 mg/dl (70-99)
--- NOTE | 2024-11-15 19:00 | PTCARENOTE ---
Heparin drip Jovi. Dr. Barth ordered heparin to remain off.
[2024-11-15] MEDS: LASIX 20 MG IV (19:18)
[2024-11-15] MEDS: KCL 20 MEQ PO (19:18)
[2024-11-15] MEDS: MAGNESIUM OXIDE 500 MG PO (19:18)
--- NOTE | 2024-11-15 20:00 | PTCARENOTE ---
Short burst atrial tachycardia that broke spontaneously. He was asymptomatic. S/P PO potassium & Magnesium prior to administering Lasix. Jason CHAPMAN notified.
--- NOTE | 2024-11-15 20:14 | PTCARENOTE ---
Expectorated large amount of rust colored phlegm after neb treatment. No changes to the bruise on the right side of his tongue.
[2024-11-15 21:57] LABS: Glucose - Point of Care 277 mg/dl (70-99)
[2024-11-16] VITALS (16 sets, daily range): BP systolic 103–138; BP diastolic 65–103; PULSE 85; BMI 43.3
--- NOTE | 2024-11-16 00:18 | PTCARENOTE ---
Rec'd pt from previous shift forgetful to short term information, pleasant and cooperative once redirected. TRAVIS, helping turn in bed. No c/o pain at rest. C/O rib pain from compressions with coughing but denied need for pain medicine. Tylenol ATC as
ordered. Afebrile 99.5 via core temp. NSR on monitor with frequent PVCs, BP 100s/60s. IV lines flushed/patent. Pulses palpable. Cpap applied as ordered. Tolerating pureed diet as ordered. Flatus noted. Pt insists on staying on bedpan longer than
recommended, especially with no BM thus far this shift. Pt encouraged to keep skin breakdown in mind when wanting to sit on bedpan for long periods of time. Fontenot draining clear yellow urine. Skin as documented.
[2024-11-16] MEDS: UNASYN IV ×4 (05:27→23:52)
[2024-11-16] MEDS: TYLENOL ORAL SOLUTION 650 MG PO ×4 (05:27→22:54)
[2024-11-16 05:34] LABS: % Basophils 0.4 % (0-2); % Eosinophils 4.2 % (0-6); % Immature Granulocytes 0.4 % (0-0.5); % Lymphocytes 15.2 % (20.5-51.1); % Monocytes 8.9 % (1.7-9.3); % Neutrophils 70.9 % (42.2-75.2); Absolute Eosinophils 0.3 10^3/uL (0-0.7); Absolute Lymphocytes 1.1 10^3/uL (1.2-3.4); Absolute Monocytes 0.6 10^3/uL (0.1-0.6); Hematocrit 32.9 % (39.0-52.0); Hemoglobin 10.9 g/dL (13.0-18.0); Mean Corp Hgb Conc. 33.1 g/dL (33.0-37.0); Mean Corpuscular Hgb 28.1 pg (27.0-31.0); Mean Corpuscular Volume 84.8 fL (80.0-94.0); Mean Platelet Volume 10.9 fL (7.4-10.4); Nucleated Red Blood Cells % 0 % (-); Platelet Count 154 10^3/uL (130-400); Red Blood Cell Count 3.88 10^6/uL (4.70-6.10); Red Cell Dist. Width 15.5 % (11.5-14.5)
[2024-11-16 05:49] LABS: Blood Urea Nitrogen 24 mg/dl (9-20); Calcium 8.6 mg/dl (8.4-10.2); Carbon Dioxide 26 mmol/L (22-30); Chloride 104 mmol/L (98-107); Estimated Creatinine Clearance 90 ml/min; Glucose 278 mg/dl (70-99); Magnesium 1.8 mg/dl (1.6-2.3); Potassium 4.7 mmol/L (3.5-5.1); Sodium 138 mmol/L (135-145); eGFR > 60.00
--- NOTE | 2024-11-16 05:52 | PTCARENOTE ---
Pt continues to be forgetful to new information, often asking the same questions already answered this shift. Pleasant and cooperative, no c/o pain at rest. Rib pain with movement. Denies pain medicines. Afebrile. Tylenol ATC. Labs sent and pending
results. AM care offered, schroeder care given. Will monitor.
[2024-11-16 05:53] LABS: NT-proBNP 3200 pg/ml
[2024-11-16] MEDS: DUONEB 3 ML INH ×2 (06:14→19:18)
--- NOTE | 2024-11-16 07:33 | W.PN.INTV ---
Today's Communication / Plan
Recommendations
- Lasix 40 mg IV today and then start Lasix 40 mg p.o. tomorrow morning
- Add daily maintenance magnesium and potassium supplementation
- Defer GMDT and decision regarding anticoagulation to cardiology service
- Add DVT prophylaxis with Lovenox 40 mg every 12
- DC Fontenot catheter
- Patient can be transferred out of ICU
- Unit Trust Manager service will sign off, please consult as needed
Assessment
-
Patient is a 69-year-old male with a past medical history of CAD, DM type II on insulin, hypertension, GERD, and BPH who presented with cardiac arrest. He had passed out in the parking lot after going target-shooting with his and family
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 His family started CPR on him but his body positioning was difficult in the car so they grabbed someone from inside a store and they continued CPR until EMS arrived. CPR was
reportedly started immediately. EMS said initial rhythm was VF, and delivered 5 shocks, 4mg of epinephrine, 150 mg lidocaine and 2 g of magnesium for reported torsades de pointes. He was intubated in the field with ROSC obtained and then brought
here to ER. He was afebrile to 97.8 �F with HR 122, respiratory rate 28, BP 121/96 and saturating 98% on room air. Initial labs showed WBC 15.2, Hb 13.8, INR 1.06, initial blood gas 7.19/47/200/99.6%, creatinine 1.6, lactate 7.2, AST 285, ALT
359, troponin 0.023, proBNP 638, TSH 2.92. He was making movements but unclear if they were purposeful, although he did find a way to push out the ETT with his tongue, which required reintubation in the ER. Initial CXR showed upper lobe patchy
opacities, and initial CT head showed no acute intracranial abnormality. CTA chest, CT abdomen/pelvis showed no evidence of an acute PE, aortic aneurysm or dissection, with multiple coastal cartilage + rib fractures, moderate diffuse bilateral
dependent consolidation with scattered patchy airspace opacities in the upper lung meehan, with no acute inflammatory process in the abdomen or pelvis. In the ER he was sedated with propofol + fentanyl drips, given bicarb x 1 amp, metoprolol 5 mg
and aspirin 300 mg. Patient started on hypothermic protocol, and admitted to the ICU for further care with machine set up services consulted for additional management/recommendations.
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
Assessment and plan:
#1. Att-gp-osmfvkhy cardiac arrest with initial rhythm reported to be V-fib s/p shock, later Torsades de pointes. Currently in stable normal sinus rhythm, extubated.
- S/p left heart cath, 11/15, nonocclusive coronary artery disease
- Off amiodarone infusion now in view of borderline bradycardia
- Target potassium and magnesium, greater than 4 and 2 respectively
- Anticipate AICD placement in coming days
#2. Acute respiratory failure with hypoxia + hypercapnia, in the setting of cardiac arrest. Patient currently extubated (11/14). Suspect aspiration postcardiac arrest with bilateral aspiration pneumonia.
- X-ray suggestive of volume overload which has responded well to IV diuresis
- With rib fractures and pulmonary contusions, continue incentive spirometry, nightly CPAP
- Continue IV Unasyn, MRSA screen negative. MSSA positive in sputum. No bacteremia
- Increase activity as tolerated
- Needing supplemental O2 between 2 to 4 L
#3. Shock, suspect vasoplegia after cardiac arrest. Patient currently off all pressors. With pneumonia and UTI, septic shock also in differential.
-Hemodynamically stable
-GMDT per cardiology service
#4. Acute on chronic heart failure with reduced ejection fraction, EF 30-35%
-Discontinued IV fluids, 11/15. LVEDP was elevated on cardiac cath
-Received 60 mg IV lasix on 11/15, plan for 40 mg iV today and then PO in AM. -3 ltr over last 24 hrs, BNP >3000 this AM
-Defer GMDT to cardiology service
#4a. History of atrial fibrillation s/p cardioversion and ablation. Patient reports that he used to be on Eliquis and then subsequently stopped taking it
- Defer decision regarding anticoagulation to cardiology service
#5. UTI with history of nephrolithiasis. No obstructive uropathy noted on imaging.
-Continue Unasyn, await final culture sensitivities, Enterococcus noted in urine
-Outpatient follow-up with urology service for bladder calculus
#6. #ALBER with underlying CKD stage III,
-Patient received IV contrast also for CT scan, contrast nephropathy in differential
-Improving with diuresis, cardio-renal syndrome
#7. DM type II (uncontrolled � HbA1c 8.9 from 11/12/2024) complicated by hyperglycemia.
- Had been on insulin drip, now transition to glargine and lispro with sliding scale insulin
- Consulted ophthalmology surgical technician nurse
#8. Mild short-term memory loss. Patient is s/p cardiac arrest requiring CPR.
- Follow-up CT to evaluate for any anoxic injury
- ICU delirium also in differential diagnosis, overall patient is awake, alert and answers questions appropriately, increase activity as tolerated.
#9. Obstructive sleep apnea, on nightly CPAP. At home, EPAP pressure of 9
- Continue CPAP nightly and when patient naps
- Titrate supplemental O2 to keep saturation above 90 to 92%
Patient can be transferred out of ICU
Discussed with primary team. Updated at bedside.
Critical Care time 52 mins -- The patient is admitted for acute critical illness for the treatment of vital organ failure and/or prevention of further life-threatening conditions. Total care includes time spent in review of history, physical exam,
medications, hemodynamic/ventilator parameters, laboratory data, imaging and discussion with house staff, pharmacy, respiratory therapy, corrections nurse, and nursing.
Diagnostic imaging:
ECHO 11/15/2024: Moderately reduced left ventricular systolic function. Global hypokinesis with left ventricular ejection fraction of 30-35% by visual
estimate. No significant valvular disease. Mildly dilated aortic root. Compared to previous echo 11/12/24, the ejection fraction has improved from 20%
on the prior study.
Cardiac Catheterization 10/2024: 1. Right dominant circulation with a 20% lesion in the proximal RCA, 40% lesion in the distal RCA, luminal irregularities in the proximal LAD and a 40-50% lesion in the distal left main immediately proximal to the
origin of the LAD.
2. Successful IVUS of the 40-50% distal left main lesion, demonstrating nonocclusive minimal luminal area (9.0 mm�).
3. Severely elevated filling pressures (LVEDP = 26 mmHg at 157.[address]
Head [address] (11/12/2024): No acute intracranial abnormality noted.
CTA chest, CT abdomen/pelvis with IV contrast (11/12/2024):
Respiratory motion degradation. No filling defect to indicate pulmonary embolism with confidence to the proximal subsegmental divisions of the pulmonary arteries.
No aortic aneurysm or dissection.
No pneumothorax.
Costal cartilage and rib fractures, as described. Trace focus of air in the anterior lower left pericardial fat.
Moderate diffuse bilateral dependent consolidation, likely atelectasis. Mild asymmetric disproportionate consolidation in the posterior left upper lobe. Possible pneumonia. Scattered patchy mild airspace opacity in the upper lungs, likely related to
hypoinflation.
No acute inflammatory process within the abdomen or pelvis.
No hydronephrosis or obstructive uropathy. Bilateral renal cysts.
Mild distal abdominal aortic ectasia measuring up to 3.4 cm, without significant change. No adenopathy.
Mild diverticulosis. No acute diverticulitis. No bowel obstruction.
Echocardiogram (11/12/2024):
Extremely technically limited study.
LV function is severely reduced with EF approximately 20%. Regional wall motion
abnormalities cannot be excluded. Recommend repeat full echo with contrast once
patient is stabilized.
Subjective Dataa
Subjective Data
Date of Service:
Date of Service: November 16, 2024
Chief Complaint: Unit Trust Manager Follow Up
Subjective:
Patient is awake, alert, sitting in chair, no acute distress.
Review of Systems
Genitourinary: Other (All 14 systems reviewed and negative except as stated above in the history of present illness.)
Objective Data
Data Reviewed
Vital Signs / I&O / Oxygen:
Vital Signs
Temp Pulse Resp BP Pulse Ox
99.6 F 91 18 112/77 95
11/16/24 04:25 11/16/24 07:00 11/16/24 07:00 11/16/24 07:00 11/16/24 07:00
Intake and Output
11/15/24 11/16/24 11/17/24
06:59 06:59 06:59
Intake Total 2444.8 / 2524.8 1042 / 1042
Output Total 2620 / 2715 5585 / 5585
Balance -175.2 / -190.2 -4543 / -4543
SaO2 [ASV] 99
SaO2 [A/C] 99
SaO2 95
Nasal Cannula flow liters per 4
minute
Physical Exam
General: Respiratory Distress (negative), Pain (Anterior chest/ribs), Chills (negative) and Sweats (negative)
HEENT: Normocephalic and Anicteric
Cardiovascular: S1-S2, Regular Rhythm (With regular PVCs) and Peripheral Edema (Edema improving)
Respiratory: Crackles (Improving bibasilar crackles) and Non-Labored Respirations
GI: Soft, Distended (Abdominal obesity), Non Tender and Normal Bowel Sounds
Neurology: AO x 3 and Tremors (negative)
Skin: Warm and Dry
Labs/Micro/Reports
Lab Data
11/16/24 04:50
11/16/24 04:50
Laboratory Results
11/15/24 11/15/24
10:09 17:45
APTT 59.4 H Cancelled
Microbiology
11/13/24 11:52 Endotracheal Respiratory Culture - Preliminary
Staphylococcus aureus
11/13/24 11:52 Endotracheal Gram Stain - Preliminary
11/12/24 17:49 Urine Urine Culture - Final
Enterococcus faecalis
11/13/24 11:45 Blood/Venous Blood Culture - Preliminary
No Growth in 48 hours- Final report to follow
11/13/24 11:45 Nose MRSA Screen - Final
No Methicillin Resistant Staphylococcus aureus isolated.
11/13/24 11:45 Urine Legionella Urinary Antigen - Final
Negative for Legionella pneumophila Serogroup 1 antigen.
A negative result does not rule out the possiblity of
Legionella infection due to other serogroups or species of
Legionella. Clinical correlation is recommended.
11/13/24 11:45 Urine Streptococcus pneumoniae Antigen (M - Final
Negative for Streptococcus pneumoniae antigen.
A negative result does not exclude infection with
Streptococcus pneumoniae. Clinical correlation is
recommended.
[2024-11-16 07:40] LABS: Glucose - Point of Care 272 mg/dl (70-99)
[2024-11-16] MEDS: LANTUS 0.28 UNITS SC (07:59)
[2024-11-16] MEDS: LOW STRENGTH ASPIRIN 81 MG PO (08:00)
[2024-11-16] MEDS: FLOMAX 0.8 MG PO (08:00)
[2024-11-16] MEDS: MIRALAX 17 GRAMS PO (08:01)
[2024-11-16] MEDS: NOVOLOG FLEXPEN 4 UNITS SC (08:01)
[2024-11-16] MEDS: NOVOLOG FLEXPEN-MODERATE RESISTANCE 5 UNITS SC (08:01)
[2024-11-16] MEDS: NSS (PRESERVATIVE FREE) 10 ML IV (08:02)
[2024-11-16] MEDS: PROTONIX IV 40 MG IV (08:03)
[2024-11-16] MEDS: MAGNESIUM SULFATE 100 IV (08:26)
[2024-11-16] MEDS: LIDOCAINE 4% PATCH 1 PATCH TOPICAL ×2 (08:27→10:32)
--- NOTE | 2024-11-16 08:57 | PN.DE.MGMTRT ---
Insulin Management
- -
11/16/2024: Diabetes Management Consult Follow up
Patient admitted 11/12 s/p witnessed cardiac arrest. 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 His family started CPR on him but
his body positioning was difficult in the car so they grabbed someone from inside a store and they continued CPR until EMS arrived. CPR was reportedly started immediately. EMS said initial rhythm was VF, and delivered 5 shocks, 4mg of epinephrine,
150 mg lidocaine and 2 g of magnesium for reported torsades de pointes. He was intubated in the field with ROSC obtained and then brought here to ER.
PMH: Chronic HFrEF, A-fib not on AC s/p PVI + DCCV, CAD s/p stents x 4, HTN, HLD, T2DM on insulin, HUANG, BPH, GERD, glaucoma, allergies, bladder stones.
Prior to admission was taking Basaglar 42 units @ HS, Metformin 500mg TID, repaglinide 1mg TID and Januvia 100mg daily.
States he uses [employer] 2 CGM and sees and Endo in [place]. A1C 8.9%, Cr 1.6, eGFR 45.78
Pt awake, alert, oriented, OOB in chair, no c/o chest pain, able to discuss diabetes care. States he has had diabetes for 18 years. at bedside-very supportive. He has not seen his endo in close to a year. They have been traveling in a RV
visiting different areas. Not due to be back in [place] until end of December.
11/15 Patient insulin increased to 25 units lantus in AM with 4 units novolog ac. Glucose range of 244 to 277 requiring 3 to 5 additional corrective insulin.
11/16 Fasting glucose 278. Lantus was increased to 28 units this AM. Will increase AC novolog to 8 units and reduce corrective insulin to low. Will restart Januvia 100 mg daily, first dose now. Will not restart metformin due to cardiac cath
11/15. Patient for ICD possible 11/18. Will consider starting Farxiga after procedure.
Discussed with Nurse patient usually take Basaglar @ HS, will transition tomorrow to HS lantus with small dose in AM then increased dose @ HS.
Will follow for further needed adjustments.
Diabetes History
- -
Type of Diabetes: 2 requiring insulin
Pre-Admission Diabetes Regimen
11/15/24 11/16/24
16:56 04:50
Creatinine 1.4 H 1.2
Lab Results
Hemoglobin A1c Cancelled 11/12/24 20:45
Insulin Pump Settings
IP Diabetes Regimen
11/15/24 11/15/24 11/15/24
11:45 16:56 18:23
Glucose 277 H
POC Glucose 267 H 244 H
11/15/24 11/16/24 11/16/24
21:55 04:50 07:38
Glucose 278 H
POC Glucose 277 H 272 H
Meal type: Dinner
Amount consumed: 100%
Patient Education
--- NOTE | 2024-11-16 09:00 | PN.CDI ---
CDI
- -
CDI:
Physician Documentation Request
Admit Date: 11/12/24 20:14
Dear Doctor,
Please review the following and provide your response in the progress notes.
Clinical Indicators:
- 11/15 Cardiology indicates Acute on chronic HFrEF
- 11/15 PN 'Chronic HFrEF...starting IV diuresis'
- also documented 'Acute on chronic HFrEF'
- 11/12 Echo EF 20%
- 11/15 Echo EF 30-35%
- IV Lasix given
Please clarify which of the following accurately represents the acuity of the HFrEF:
Acute on Chronic HFrEF
Chronic HFrEF
Other (please specify)
Use of terms such as suspected, likely, concern for, or probable (associated with a specific diagnosis that is being evaluated, monitored, or treated as if it exists) are acceptable and can be coded in the inpatient setting, when documented at the
time of discharge.
Thank you,
Deon Gross RN
CDI Specialist
Please use your independent medical judgment in providing your response.
[2024-11-16] MEDS: LASIX 40 MG IV (10:30)
[2024-11-16] MEDS: LOVENOX 40 MG SC ×2 (10:30→20:48)
[2024-11-16] MEDS: KCL 20 MEQ PO (10:30)
--- NOTE | 2024-11-16 11:08 | W.PN.CD ---
Today's Communication / Plan
-
Add GDMT
We would like a bit more time to allow brain to potentially improve prior to ICD placement
Tentatively plan ICD 11/18/2024
May need AMIO if NSVT continues
Impression / Plan
-
Impression/Plan: 69-year-old male with history of ischemic cardiomyopathy with recovered ejection fraction (EF 53% in 2022), atrial fibrillation s/p PVI (2005, 2015), CAD with reported remote PCI in 2007, insulin-dependent diabetes, obesity
presents to the emergency room via EMS status post out of hospital cardiac arrest.
Primary out of hospital VF arrest
Complex PVCs, multiform, and NSVT 3-4 beats
- May need Amio at discharge
Hypoxic brain injury, improving but memory not normal, he has clear deficits in short term memory, but recalls that he has been told that he should have an ICD
Nonischemic myocardial injury from VF/CPR/Shocks, peak troponin 2.09
HFrEF (LVEF 30-35%), Acute on chronic
- LVEDP at cath 26 mmHg 11/15/2024
- Follows with Dr. Muñoz from [facility] ([place]). Reviewed outside records.
- Last TTE August 2022: Moderately dilated LV, LVEF 53%, severe LA dilation, mild MR, moderate PH.
- Add back GDMT
CAD with remote PCI => no obstructive CAD at cath 11/15/2204, IVUS of LM was negative
Paroxysmal atrial fibrillation status post PVI, Declined anticoagulation in the past.
Diabetes
-Management per primary.
-He would benefit from SGLT2i and GLP-1 medications.
Subjective/Interval History:
Pleasant but not aware of circumstances of arrest, understands that he will have an ICD placed
DATA:
CT Head, 11/15/2024:
IMPRESSION:
No acute intracranial abnormality.
Echocardiogram, 11/15/2024:
CONCLUSIONS
Technically difficult study - Definity used.
Moderately reduced left ventricular systolic function.
Global hypokinesis with left ventricular ejection fraction of 30-35% by visual
estimate.
No significant valvular disease.
Mildly dilated aortic root.
Compared to previous echo 11/12/24, the ejection fraction has improved from 20%
on the prior study.
EEG, 11/15/2024:
CLINICAL CORRELATION:
This study was suggestive of diffuse cortical dysfunction without focal abnormality. No seizures were recorded.
Clinical correlation is advised.
Physical Exam
Vital Signs/Labs
Vital Signs
Temp Pulse Resp BP Pulse Ox
99.7 F 91 18 112/77 95
11/16/24 08:21 11/16/24 07:00 11/16/24 07:00 11/16/24 07:00 11/16/24 07:00
11/15/24 11/16/24 11/17/24
06:59 06:59 06:59
Actual Weight 157.5 kg 153 kg
11/16/24 04:50
11/16/24 04:50
PT 15.5 Sec (11.4-14.6) H 11/15/24 02:43
INR 1.20 11/15/24 02:43
APTT Cancelled 11/15/24 17:45
Magnesium 1.8 mg/dl (1.6-2.3) 11/16/24 04:50
Triglycerides 124 mg/dl (10-149) 11/15/24 02:43
LDL Cholesterol, Calc 18 mg/dl 11/13/24 07:48
VLDL Cholesterol, Calc 37 mg/dl (0-30) H 11/13/24 07:48
HDL Cholesterol 25 mg/dl 11/13/24 07:48
11/12/24 11/16/24
17:49 04:50
Fvy-A-Kkaownktxeg Pept 638 3200
LAB Results
11/13/24 11/13/24 11/13/24
07:48 11:45 18:04
Troponin I Cancelled 1.840 H* 2.070 H*
11/13/24 11/14/24
19:58 02:00
Troponin I 2.090 H* 1.970 H*
Physical Exam
Constitutional: No acute distress
EENT: Anicteric
Cardiovascular: Rhythm & rate is regular and Pedal edema is absent
Respiratory: Respiratory effort normal and Lungs clear to auscul.
GI: Soft and Distention absent
Neuro/Psych: Alert and Oriented (to place and need for ICD)
Data Reviewed
-
Date of Service: November 16, 2024
[2024-11-16 11:55] LABS: Glucose - Point of Care 342 mg/dl (70-99)
[2024-11-16] MEDS: NOVOLOG FLEXPEN 8 UNITS SC (12:20)
[2024-11-16] MEDS: NOVOLOG FLEXPEN-LOW RESISTANCE 4 UNITS SC (12:21)
[2024-11-16] MEDS: JANUVIA 100 MG PO (12:22)
[2024-11-16] MEDS: ALDACTONE 12.5 MG PO (12:22)
[2024-11-16] MEDS: PROSCAR 5 MG PO (12:22)
[2024-11-16] MEDS: CLARITIN 10 MG PO (12:25)
--- NOTE | 2024-11-16 13:38 | PTCARENOTE ---
assisted pt to commode where he only passed flatus, but while on commode, pt passed bladder stone with some urine. Sat back in chair to eat lunch, then plan to move pt to IVU. Leonor given report prior to transfer.
--- NOTE | 2024-11-16 13:55 | PTOTSP ---
Speech Language Pathology
Pt seen for cognitive-linguistic evaluation. reported memory issues and pt not having a filter since cardiac arrest. reported that pt also has some longer-term memory deficits, such as not knowing who the president is and forgetting how
long he has been retired. Decreased awareness of deficits noted. Evaluated via the Mervin Cognitive Assessment (MOCA), version 8.3. Pt with an overall score of 21/30 where normal range is 26-30. Pt with mild-mod cognitive deficits.
Pt also seen for dysphagia tx. P.O. trials of puree, regular solids, and thin liquids provided. Adequate mastication, bolus formation, and A-P transit noted with no oral residue. No overt signs of aspiration.
Recommend:
(1) Upgrade to regular solids/thin liquids
(2) General aspiration precautions
(3) Meds as tolerated
(4) Consider acute rehab at discharge to address acute cognitive deficits in addition to PT/OT needs
(5) TON CONTAINER SHIPPER to continue to follow for cognitive-linguistic tx. Further dysphagia therapy not indicated.
--- NOTE | 2024-11-16 15:00 | PTCARENOTE ---
pt assisted back to bed with minimal assist. noted tolliver and sob with activity, but maintains sats/hr. confused conversation persists. otherwise no changes.
--- NOTE | 2024-11-16 15:11 | W.PN.HOSP.TC ---
Addendum entered and electronically signed by Radhika Interiano MD 11/16/24 17:51:
I saw and evaluated the patient independently. I reviewed the resident�s note and agree with findings and plan as documented by Dr. Hines.
GENERAL: well developed, well nourished, obese male in no apparent distress
HEENT: NC/AT--still on O2
HEART: regular rate and rhythm, +S1, +S2 with ectopy
LUNGS : decreased BS bilaterally
ABDOM: soft, nontender, nondistended, + bowel sounds
EXT: no cyanosis, clubbing, or edema
NEUROLOGIC: grossly intact
: schroeder
Witnessed Cardiac Arrest due to presumed Ventricular Fibrillation with CPR -- Reported V-Fib on initial tracings in patient with known heart disease/cardiomyopathy--cont amiodarone--finished targeted temp protocol and now normothermic--off
sedation--off levophed--ECHO with EF 20% (down from 35-40% in 202), repeat improved to 30% with global hypokinesis--s/p cardiac cath without need for stents-- for possible defibrillator (will defer to cards)--apprec cards/stripper shovel operator/neuro--repeat
head CT without acute intracranial abnormality--transfer to IVU
rib fractures--from CPR--pain control--PT/OT
troponin elevation--could be from CPR most likely--less so primary cardiac event--peaked at 2.09 and downtrending
VDRF--intubated for cardiac arrest--extubated
Lactic Acidosis/Abnormal LFTs--likely from cardiogenic shock from cardiac arrest--lactate acidosis resolved--restart diuresis
ASCVD - s/p prior stents - most recent about 20y ago per -- No recent issues with chest pain, exertional dyspnea, etc-- EKG with non-specific ST changes but no evident ST elevations noted-- IV heparin, daily ASA, etc.
Chronic HFrEF--LVEF=20% compared with 35-40% in 202--CXR shows some degree of pulmonary edema - but no rales appreciated on exam--starting IV diuresis
Paroxysmal Atrial Fibrillation--s/p cardioversions and ablations--Currently in sinus rhythm--Not on any antiarrhythmic medications. Patient has declined OAC in the past.
Essential Hypertension--hold meds as needed--restart as able pending BP
Type 2 DM--Current hyperglycemia likely secondary to acute event-- notes that glucose has been well-controlled recently--Continue basal insulin-- Cover with SSI as needed-- A1C 8.9--s/p glycemic protocol
Obesity due to excess calories--affects all aspects of care- - Encourage healthy diet and activity as able for goal of weight loss.
HUANG on CPAP-- resume nightly CPAP
BPH--Schroeder placed in the ED-- Patient scheduled for TURP in December.
DVT Proph
Code Status: Full
Original Note:
Today's Communication/Plan
-
S/p left heart cath, no stents placed.
Tentative ICD implantation 11/18/24
LVEF improved to 30%-35% with global hypokinesis
Continue aggressive diuresis
Start GDMT therapy. Resume beta-massimo, Aldactone, CHANTEL
Check cost for SGLT2 with case finishing machine adjuster
Downgrade to IVU
Assessment / Plan
Assessment / Plan
Impression
Witnessed cardiac arrest due to presumed ventricular fibrillation
Troponin elevation
Acute hypoxic respiratory insufficiency
Lactic acidosis/abnormal LFTs
UTI positive Enterococcus
ASCVD s/p prior stents
Acute on chronic HFrEF
Paroxysmal atrial fibrillation
Essential hypertension
Type 2 diabetes
Obesity due to excess calories
HUANG on CPAP
BPH
Plan
Witnessed cardiac arrest due to presumed atrial fibrillation with CPR
s/p [facility] no stents placed. 20% stenosis RCA proximal, 40% RCA distal, LAD 40 to 50%.
Reported V-fib in ED initial tracing later torsades de pointes
Finished targeted temperature control now normothermic
Patient extubated on 11/14/2024
Off pressors
LVEF improved to 30%-35% with global hypokinesis
Tentative ICD implantation 11/18/24
Continue aggressive diuresis
Start GDMT therapy. Resume beta-massimo, Aldactone, CHANTEL
Check cost for SGLT2 with case finishing machine adjuster
Downgrade to IVU
Elevated troponin-- improving
Likely due to cardiac arrest and stress
Peaked at 2.09 and downtrending
Acute hypoxic respiratory insufficiency due to cardiac arrest/cardiogenic shock
On 5 L of oxygen, wean as able
Chest x-ray reveals mild cardiomegaly with suggestion of mild interstitial cardiogenic pulmonary edema, unchanged bilateral lower lobe airspace consolidation.
Lactic acidosis/abnormal LFTs-- improving
Likely cardiogenic shock from cardiac arrest
Lactate within normal limits- 1.7
LFTs downtrending
UTI positive Enterococcus recovered on culture
Continue IV Unasyn
Monitor temperature curve, WBC.
ASCVD s/p prior stents
Around 20 years ago per
No recent chest pain/shortness of breath/exertional dyspnea
EKG with nonspecific ST changes but no evidence of ST elevation
Continue IV heparin and daily aspirin
Chronic HFrEF
LVEF stable at 20%
Stop IV fluids and start IV lasix
Repeat echo
Paroxysmal Atrial Fibrillation--s/p cardioversions and ablations
Currently in sinus rhythm
Not on any antiarrhythmic medications.
Patient has declined OAC in the past.
Essential Hypertension
Resume to oral medication
Type 2 DM
Current hyperglycemia likely secondary to acute event
notes that glucose has been well-controlled recently
Basal 28 units and bolus 8 units
Goal blood glucose 140- 180
Obesity due to excess calories
affects all aspects of care
Encourage healthy diet and activity as able for goal of weight loss.
HUANG on CPAP--Currently on vent support - resume nightly CPAP after extubated.
BPH--Schroeder placed in the ED-- Patient scheduled for TURP in December.
DVT Proph--On therapeutic heparin.
Code Status: Full
Anticipated Discharge: > 48 hours
Subjective/Interval History
-
Date of Service: November 16, 2024
No overnight events
Objective Data
-
Labs:
Laboratory Results
11/16/24
04:50
WBC 7.0
Hgb 10.9 L
Hct 32.9 L
Plt Count 154
Sodium 138
Potassium 4.7
Chloride 104
Carbon Dioxide 26
BUN 24 H
Creatinine 1.2
Glucose 278 H
Calcium 8.6
Vital Signs:
Vital Signs
Temp Pulse Resp BP Pulse Ox
98.4 F 102 15 127/91 94
11/16/24 12:05 11/16/24 13:00 11/16/24 13:00 11/16/24 12:22 11/16/24 13:00
I&O
11/15/24 11/16/24 11/17/24
06:59 06:59 06:59
Intake Total 2444.8 / 2524.8 1042 / 1042 820 / 820
Output Total 2620 / 2715 5585 / 5685 1725 / 1725
Balance -175.2 / -190.2 -4543 / -4643 -905 / -905
Review of Systems
-
All other systems: Reviewed and negative
Physical Exam
-
General: No Apparent Distress and Comfortable
HEENT: Normocephalic and Atraumatic
Respiratory: Clear to Auscultation
Cardiac: Regular Rhythm and S1/S2
GI: Soft, Nontender and Nondistended
Genito-urinary: Schroeder
Musculoskeletal: No Edema
Neuro: Awake and Alert
Psych: Calm
Data Reviewed
-
Labs: Labs Reviewed by me and Discussed with Physician
--- NOTE | 2024-11-16 15:42 | PTCARENOTE ---
received patient from ICU, monitor placed, NSR with freq. PVC's, , VSS. patient is on a bariatric bed. patient is oriented to person, place. recalls events leading up to cardiac arrest. INT x 2 in right AC and right hand. patient is on O2 at 4LNC,
96%. lung meehan are shallow due to pain from ribs, which lidocaine patch cut into 2 was placed on each side of sternum by ICU nurse. I/S was encouraged. patient able to use urinal himself. ICU nurse said patients diet can advance, as per speech,
awaiting order. patient oriented to call wilcox. family at bedside.
[2024-11-16 15:58] LABS: Glucose - Point of Care 371 mg/dl (70-99)
--- NOTE | 2024-11-16 16:17 | PTCARENOTE ---
BS 371, was instructed to call Kinga Galicia if BS is greater than 200. recived telephone order to increase novolog insulin to 15units ac.
--- NOTE | 2024-11-16 17:06 | PTCARENOTE ---
patient is on a diabetic . diet. ordered for patient. patient continues to be inc. of urine. requested bedpan, placed.
[2024-11-16] MEDS: NOVOLOG FLEXPEN-LOW RESISTANCE 5 UNITS SC (17:23)
[2024-11-16] MEDS: NOVOLOG FLEXPEN 15 UNITS SC (17:23)
[2024-11-16] MEDS: LIPITOR 80 MG PO (17:25)
[2024-11-16] MEDS: NOVOLOG FLEXPEN SC (17:36)
--- NOTE | 2024-11-16 20:00 | PTCARENOTE ---
Assumed care of patient at 1900. Patient found resting in bed at time of assessment. Patient is AOx4, follows commands appropriately, moves all extremities. Patient is forgetful at times on assessment repeats statements. Lung sounds are diminished
throughout, saO2 98% on 4L via NC. Heart sounds are audible, patient is SR BBB 1st deg AV block with PVCs. Patient has normal palpable pulses and trace pedal edema is present. Patient has active BS throughout all four quadrants of round obese
abdomen, uses urinal. 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 Patient has R AC 20G PIV and R Hand 20G PIV.
[2024-11-16] MEDS: ZEBETA 2.5 MG PO (20:46)
[2024-11-16] MEDS: PROTONIX 40 MG PO (20:48)
[2024-11-16] MEDS: SENOKOT PO (22:18)
[2024-11-16 22:51] LABS: Glucose - Point of Care 272 mg/dl (70-99)
[2024-11-17] VITALS (14 sets, daily range): BP systolic 86–123; BP diastolic 53–77; PULSE 102; O2SAT 92; BMI 42.6
[2024-11-17] MEDS: CLARITIN 10 MG PO (02:55)
[2024-11-17 03:50] LABS: % Basophils 0.6 % (0-2); % Eosinophils 4.7 % (0-6); % Immature Granulocytes 0.6 % (0-0.5); % Lymphocytes 12.5 % (20.5-51.1); % Monocytes 10.3 % (1.7-9.3); % Neutrophils 71.3 % (42.2-75.2); Absolute Basophils 0.1 10^3/uL (0-0.2); Absolute Eosinophils 0.4 10^3/uL (0-0.7); Absolute Immature Granulocytes 0.1 10^3/uL (0-0.05); Absolute Monocytes 0.8 10^3/uL (0.1-0.6); Absolute Neutrophils 5.7 10^3/uL (1.4-6.5); Hematocrit 31.2 % (39.0-52.0); Hemoglobin 10.5 g/dL (13.0-18.0); Mean Corp Hgb Conc. 33.7 g/dL (33.0-37.0); Mean Corpuscular Hgb 28.2 pg (27.0-31.0); Mean Corpuscular Volume 83.6 fL (80.0-94.0); Mean Platelet Volume 10.7 fL (7.4-10.4); Nucleated Red Blood Cells % 0 % (-); Platelet Count 186 10^3/uL (130-400); Red Blood Cell Count 3.73 10^6/uL (4.70-6.10); Red Cell Dist. Width 14.8 % (11.5-14.5)
[2024-11-17 03:59] LABS: Magnesium 2.1 mg/dl (1.6-2.3)
--- NOTE | 2024-11-17 04:49 | PTCARENOTE ---
Obtained O2 adapter for patient's CPAP device. Patient wore CPAP for two hours before reporting congestion made it impossible to continue wearing CPAP. Pt requesting antihistamine. INSULATION TECHNICIAN contacted received one time order for claritin. O2 weaned to 2L.
--- NOTE | 2024-11-17 05:29 | PTCARENOTE ---
Patient passing multiple bladder stones overnight. INTERIOR WIRER notified. No new orders at this time.
[2024-11-17] MEDS: OCEAN, SALINE MIST 2 SPRAYS NASAL ×2 (06:06→21:02)
[2024-11-17] MEDS: UNASYN IV ×4 (06:11→23:18)
[2024-11-17] MEDS: DUONEB 3 ML INH ×2 (07:47→19:18)
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
[2024-11-17] MEDS: MAGNESIUM OXIDE 500 MG PO (07:51)
[2024-11-17] MEDS: ZEBETA 2.5 MG PO ×2 (07:51→21:46)
[2024-11-17] MEDS: FLOMAX 0.8 MG PO (07:52)
[2024-11-17] MEDS: LOW STRENGTH ASPIRIN 81 MG PO (07:52)
[2024-11-17] MEDS: LASIX 40 MG PO (07:53)
[2024-11-17] MEDS: PROTONIX 40 MG PO ×2 (07:53→20:51)
[2024-11-17] MEDS: ZESTRIL 5 MG PO (07:53)
[2024-11-17] MEDS: PROSCAR 5 MG PO (07:53)
[2024-11-17] MEDS: ALDACTONE 12.5 MG PO (07:53)
[2024-11-17] MEDS: LIDOCAINE 4% PATCH 2 PATCH TOPICAL (07:56)
[2024-11-17 08:24] LABS: Glucose - Point of Care 252 mg/dl (70-99)
[2024-11-17] MEDS: NOVOLOG FLEXPEN-LOW RESISTANCE 3 UNITS SC (08:27)
[2024-11-17] MEDS: JANUVIA 100 MG PO (08:32)
[2024-11-17] MEDS: CLARITIN PO (08:34)
[2024-11-17] MEDS: LOVENOX 40 MG SC ×2 (08:47→20:51)
[2024-11-17] MEDS: LANTUS 0.2 UNITS SC (08:57)
[2024-11-17] MEDS: NOVOLOG FLEXPEN 20 UNITS SC ×3 (08:59→16:54)
[2024-11-17] MEDS: NOVOLOG FLEXPEN SC (09:04)
--- NOTE | 2024-11-17 10:05 | W.PN.CD ---
Today's Communication / Plan
-
Anticipate ICD tomorrow
Impression / Plan
-
Background: 69-year-old male with history of ischemic cardiomyopathy with recovered ejection fraction (EF 53% in 2022), atrial fibrillation s/p PVI (2005, 2015), CAD with reported remote PCI in 2007, insulin-dependent diabetes, obesity presents to
the emergency room via EMS status post out of hospital cardiac arrest.
Primary out of hospital VF arrest
Complex PVCs, multiform, and NSVT 3-4 beats
- Still with NSVT but less
- Might need Amio at discharge
Hypoxic brain injury, improving
Nonischemic myocardial injury from VF/CPR/Shocks, peak troponin 2.09
HFrEF (LVEF 30-35%), Acute on chronic
- LVEDP at cath 26 mmHg 11/15/2024
- Follows with Dr. Muñoz from [facility] ([place]). Reviewed outside records.
- Last TTE August 2022: Moderately dilated LV, LVEF 53%, severe LA dilation, mild MR, moderate PH.
- Adding back GDMT
CAD with remote PCI => no obstructive CAD at cath 11/15/2204, IVUS of LM was negative
Paroxysmal atrial fibrillation status post PVI, Declined anticoagulation in the past.
Diabetes
-Management per primary.
-He would benefit from SGLT2i and GLP-1 medications.
Subjective/Interval History:
Reviewed rational for ICD.
DATA:
CT Head, 11/15/2024:
IMPRESSION:
No acute intracranial abnormality.
Echocardiogram, 11/15/2024:
CONCLUSIONS
Technically difficult study - Definity used.
Moderately reduced left ventricular systolic function.
Global hypokinesis with left ventricular ejection fraction of 30-35% by visual
estimate.
No significant valvular disease.
Mildly dilated aortic root.
Compared to previous echo 11/12/24, the ejection fraction has improved from 20%
on the prior study.
EEG, 11/15/2024:
CLINICAL CORRELATION:
This study was suggestive of diffuse cortical dysfunction without focal abnormality. No seizures were recorded.
Clinical correlation is advised.
Physical Exam
Vital Signs/Labs
Vital Signs
Temp Pulse Resp BP Pulse Ox
98.2 F 90 18 123/77 95
11/17/24 06:44 11/17/24 07:50 11/17/24 07:50 11/17/24 03:19 11/17/24 06:44
11/16/24 11/17/24 11/18/24
06:59 06:59 06:59
Actual Weight 153 kg 150.5 kg
11/17/24 03:14
PT 15.5 Sec (11.4-14.6) H 11/15/24 02:43
INR 1.20 11/15/24 02:43
APTT Cancelled 11/15/24 17:45
Magnesium 2.1 mg/dl (1.6-2.3) 11/17/24 03:14
Triglycerides 124 mg/dl (10-149) 11/15/24 02:43
LDL Cholesterol, Calc 18 mg/dl 11/13/24 07:48
VLDL Cholesterol, Calc 37 mg/dl (0-30) H 11/13/24 07:48
HDL Cholesterol 25 mg/dl 11/13/24 07:48
11/12/24 11/16/24
17:49 04:50
Top-C-Cjvjsuqegvt Pept 638 3200
Physical Exam
Constitutional: No acute distress
EENT: Anicteric
Cardiovascular: Rhythm & rate is regular
Respiratory: Respiratory effort normal and Lungs clear to auscul.
GI: Soft and Distention absent
Neuro/Psych: Alert
Data Reviewed
-
Date of Service: November 17, 2024
[2024-11-17 10:57] LABS: Blood Urea Nitrogen 28 mg/dl (9-20); Calcium 9.2 mg/dl (8.4-10.2); Carbon Dioxide 27 mmol/L (22-30); Chloride 99 mmol/L (98-107); Estimated Creatinine Clearance 81 ml/min; Glucose 293 mg/dl (70-99); Potassium 4.4 mmol/L (3.5-5.1); Sodium 136 mmol/L (135-145); eGFR 58.73
--- NOTE | 2024-11-17 12:23 | W.PN.HOSP.TC ---
Addendum entered and electronically signed by Radhika Interiano MD 11/17/24 17:12:
I saw and evaluated the patient independently. I reviewed the resident�s note and agree with findings and plan as documented by Dr. Hines.
GENERAL: well developed, well nourished, obese male in no apparent distress
HEENT: NC/AT--still on O2
HEART: regular rate and rhythm, +S1, +S2 with ectopy
LUNGS : decreased BS bilaterally
ABDOM: soft, nontender, nondistended, + bowel sounds
EXT: no cyanosis, clubbing, or edema
NEUROLOGIC: grossly intact
: schroeder
Witnessed Cardiac Arrest due to presumed Ventricular Fibrillation with CPR -- Reported V-Fib on initial tracings in patient with known heart disease/cardiomyopathy--cont amiodarone--finished targeted temp protocol and now normothermic--off
sedation--off levophed--ECHO with EF 20% (down from 35-40% in 2021), repeat improved to 30% with global hypokinesis--s/p cardiac cath without need for stents-- for possible defibrillator 11/18/24--apprec cards/underwear finisher/neuro--repeat head CT
without acute intracranial abnormality
rib fractures--from CPR--pain control--PT/OT
troponin elevation--could be from CPR most likely--less so primary cardiac event--peaked at 2.09
VDRF--intubated for cardiac arrest--extubated
Lactic Acidosis/Abnormal LFTs--likely from cardiogenic shock from cardiac arrest--lactate acidosis resolved--restart diuresis
ASCVD - s/p prior stents - most recent about 20y ago per -- No recent issues with chest pain, exertional dyspnea, etc-- EKG with non-specific ST changes but no evident ST elevations noted-- IV heparin, daily ASA, etc.
Acute on Chronic HFrEF--LVEF=20% compared with 35-40% in 2021--CXR shows some degree of pulmonary edema - but no rales appreciated on exam--starting IV diuresis
Paroxysmal Atrial Fibrillation--s/p cardioversions and ablations--Currently in sinus rhythm--Not on any antiarrhythmic medications. Patient has declined OAC in the past.
Essential Hypertension--hold meds as needed--restart as able pending BP
Type 2 DM--Current hyperglycemia likely secondary to acute event-- notes that glucose has been well-controlled recently--adjust insulins as needed-- Cover with SSI as needed-- A1C 8.9--s/p glycemic protocol
Obesity due to excess calories--affects all aspects of care- - Encourage healthy diet and activity as able for goal of weight loss.
HUANG on CPAP-- resume nightly CPAP
BPH--Schroeder placed in the ED-- Patient scheduled for TURP in December.
DVT Proph
Code Status: Full
Original Note:
Today's Communication/Plan
-
Anticipate ICD implantation tomorrow
Transition to oral Lasix
Assessment / Plan
Assessment / Plan
Impression
Witnessed cardiac arrest due to presumed ventricular fibrillation
Troponin elevation
Acute hypoxic respiratory insufficiency
Lactic acidosis/abnormal LFTs
UTI positive Enterococcus
ASCVD s/p prior stents
Acute on chronic HFrEF
Paroxysmal atrial fibrillation
Essential hypertension
Type 2 diabetes
Obesity due to excess calories
HUANG on CPAP
BPH
Plan
Witnessed cardiac arrest due to presumed atrial fibrillation with CPR
s/p [facility] no stents placed. 20% stenosis RCA proximal, 40% RCA distal, LAD 40 to 50%.
Reported V-fib in ED initial tracing later torsades de pointes
Finished targeted temperature control now normothermic
Patient extubated on 11/14/2024
Off pressors
LVEF improved to 30%-35% with global hypokinesis
Anticipate ICD implantation tomorrow
Transition to oral Lasix
GDMT therapy, continue beta-massimo, Aldactone, CHANTEL
Consult CM for SGLT2 cost
Elevated troponin-- improving
Likely due to cardiac arrest and stress
Peaked at 2.09 and downtrending
Acute hypoxic respiratory insufficiency due to cardiac arrest/cardiogenic shock --- improved/resolved
On room air
Chest x-ray reveals mild cardiomegaly with suggestion of mild interstitial cardiogenic pulmonary edema, unchanged bilateral lower lobe airspace consolidation.
Lactic acidosis/abnormal LFTs-- improving
Likely cardiogenic shock from cardiac arrest
Lactate within normal limits- 1.7
LFTs downtrending
UTI positive Enterococcus recovered on culture
Continue IV Unasyn
Monitor temperature curve, WBC.
ASCVD s/p prior stents
Around 20 years ago per
No recent chest pain/shortness of breath/exertional dyspnea
EKG with nonspecific ST changes but no evidence of ST elevation
Continue IV heparin and daily aspirin
Chronic HFrEF
LVEF stable at 20%
Stop IV fluids and start IV lasix
Repeat echo
Paroxysmal Atrial Fibrillation--s/p cardioversions and ablations
Currently in sinus rhythm
Not on any antiarrhythmic medications.
Patient has declined OAC in the past.
Essential Hypertension
Resume to oral medication
Type 2 DM
Current hyperglycemia likely secondary to acute event
notes that glucose has been well-controlled recently
Basal 28 units and bolus 8 units
Goal blood glucose 140- 180
Obesity due to excess calories
affects all aspects of care
Encourage healthy diet and activity as able for goal of weight loss.
HUANG on CPAP--Currently on vent support - resume nightly CPAP after extubated.
BPH--Schroeder placed in the ED-- Patient scheduled for TURP in December.
DVT Proph--On therapeutic heparin.
Code Status: Full
Anticipated Discharge: > 48 hours
Subjective/Interval History
-
Date of Service: November 17, 2024
No overnight event except that patient passed 3 stones this morning. He has history of renal stones
Objective Data
-
Labs:
Laboratory Results
11/17/24 11/17/24
03:14 09:51
WBC 8.0
Hgb 10.5 L
Hct 31.2 L
Plt Count 186 D
Sodium 136
Potassium 4.4
Chloride 99
Carbon Dioxide 27
BUN 28 H
Creatinine 1.3
Glucose 293 H
Calcium 9.2
Vital Signs:
Vital Signs
Temp Pulse Resp BP Pulse Ox
98.3 F 97 20 111/72 94
11/17/24 12:10 11/17/24 11:00 11/17/24 12:10 11/17/24 09:23 11/17/24 12:10
I&O
11/16/24 11/17/24 11/18/24
06:59 06:59 06:59
Intake Total 1042 / 1042 1168 / 1168
Output Total 5585 / 5685 2765 / 2765
Balance -4543 / -4643 -1597 / -1597
Review of Systems
-
All other systems: Reviewed and negative
Physical Exam
-
General: No Apparent Distress and Comfortable
HEENT: Normocephalic and Atraumatic
Respiratory: Clear to Auscultation
Cardiac: Regular Rhythm and S1/S2
GI: Soft, Nontender and Nondistended
Musculoskeletal: Edema, Right Lower Extrem (Improving) and Edema, Left Lower Extrem (Improving)
Skin: Warm, Dry and Other (Purplish discoloration like a bruise on lower left flank)
Neuro: AO x 3
Psych: Calm
Data Reviewed
-
Labs: Labs Reviewed by me and Discussed with Physician
[2024-11-17 12:47] LABS: Glucose - Point of Care 205 mg/dl (70-99)
--- NOTE | 2024-11-17 13:16 | CM ---
Reviewed chart. Mr. Hancock was transferred to IVU. Met with MrGary and Mrs. Hancock to review discharge plans. [facility] [place] They are agreeable to having a referral made. Telephone call to [facility] at
[facility] Liaison to make the referral. sent the referral. Will need PM&R evaluation. TT resident asking for order. Telephone call to Mr. Hancock pharmacy benefit, ([phone]) to check on Jardiance and Farxiga co-pay. His co-pay for Farxiga is
$20.00 a month and his co-pay for Jardiance is also $20.00 a month. Medical work-up in progress. The discharge plan is to go to [facility] if approved for admission when medically stable.
[2024-11-17] MEDS: NOVOLOG FLEXPEN-LOW RESISTANCE 2 UNITS SC (13:20)
[2024-11-17] MEDS: ANESTHETIC LOZENGE 1 LOZENGE PO ×2 (14:54→21:47)
[2024-11-17] MEDS: GLUCOPHAGE 1000 MG PO (16:30)
[2024-11-17] MEDS: MIRALAX PO (16:32)
[2024-11-17] MEDS: LIPITOR 80 MG PO (16:53)
[2024-11-17] MEDS: NOVOLOG FLEXPEN-LOW RESISTANCE 1 UNITS SC (16:54)
[2024-11-17 16:58] LABS: Glucose - Point of Care 159 mg/dl (70-99)
--- NOTE | 2024-11-17 18:00 | PTCARENOTE ---
Pt received this am sitting oob in the recliner chair. Pt denies any pain or sob. Room air sat 93%. Voiding clear yellow urine in the urinal plus some incontinence on the floor. Gait fairly steady with the walker. Pt assisted to the BR as needed.
[2024-11-17] MEDS: SENOKOT 17.2 MG PO (21:02)
[2024-11-17 21:28] LABS: Glucose - Point of Care 103 mg/dl (70-99)
[2024-11-17] MEDS: LANTUS SC (23:09)
--- NOTE | 2024-11-17 23:09 | PTCARENOTE ---
HS blood sugar 103, pt NPO at midnight for possible procedure tomorrow, business analyst sales operations APPLICATIONS SYSTEM ANALYST made aware, Lantus dose held.
[2024-11-18] VITALS (11 sets, daily range): BP systolic 89–111; BP diastolic 58–79; PULSE 79–86; O2SAT 92–93; BMI 43.0
[2024-11-18 04:49] LABS: % Basophils 0.7 % (0-2); % Eosinophils 5.2 % (0-6); % Immature Granulocytes 0.9 % (0-0.5); % Lymphocytes 17.2 % (20.5-51.1); % Monocytes 11.4 % (1.7-9.3); % Neutrophils 64.6 % (42.2-75.2); Absolute Basophils 0.1 10^3/uL (0-0.2); Absolute Eosinophils 0.4 10^3/uL (0-0.7); Absolute Immature Granulocytes 0.1 10^3/uL (0-0.05); Absolute Lymphocytes 1.3 10^3/uL (1.2-3.4); Absolute Monocytes 0.9 10^3/uL (0.1-0.6); Absolute Neutrophils 4.8 10^3/uL (1.4-6.5); Hemoglobin 9.7 g/dL (13.0-18.0); Mean Corp Hgb Conc. 33.4 g/dL (33.0-37.0); Mean Corpuscular Hgb 27.9 pg (27.0-31.0); Mean Corpuscular Volume 83.3 fL (80.0-94.0); Mean Platelet Volume 10.7 fL (7.4-10.4); Nucleated Red Blood Cells % 0 % (-); Platelet Count 177 10^3/uL (130-400); Red Blood Cell Count 3.48 10^6/uL (4.70-6.10); Red Cell Dist. Width 15.1 % (11.5-14.5); White Blood Cell Count 7.4 10^3/uL (4.8-10.8)
--- NOTE | 2024-11-18 04:59 | PTCARENOTE ---
Pt remains NPO since midnight, SR with runs of PVC and BBB on the monitor, asymptomatic, no c/o chest pain or SOB. BP runs low 90-100/50's , HR 90's, no c/o dizziness or lightheadedness voiced by pt, assisted with care and ambulation to bathroom
with walker and stand by assist, steady gait. Pox 93-95 % RA. Pt c/o some discomfort during sleep from rib fractures, however felt better with repositioning and sitting up, denied pain meds. Labs sent and pending results. Call wilcox within reach.
[2024-11-18 05:15] LABS: Magnesium 1.8 mg/dl (1.6-2.3); Triglycerides 179 mg/dl (10-149)
[2024-11-18] MEDS: UNASYN IV ×3 (06:06→20:01)
[2024-11-18] MEDS: DUONEB 3 ML INH (07:09)
[2024-11-18 07:50] LABS: Glucose - Point of Care 178 mg/dl (70-99)
--- NOTE | 2024-11-18 07:57 | PN.DE.MGMTRT ---
Insulin Management
- -
11/18/2024: Diabetes Management Consult Follow up
Patient admitted 11/12 s/p witnessed cardiac arrest. 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 His family started CPR on him but
his body positioning was difficult in the car so they grabbed someone from inside a store and they continued CPR until EMS arrived. CPR was reportedly started immediately. EMS said initial rhythm was VF, and delivered 5 shocks, 4mg of epinephrine,
150 mg lidocaine and 2 g of magnesium for reported torsades de pointes. He was intubated in the field with ROSC obtained and then brought here to ER.
PMH: Chronic HFrEF, A-fib not on AC s/p PVI + DCCV, CAD s/p stents x 4, HTN, HLD, T2DM on insulin, HUANG, BPH, GERD, glaucoma, allergies, bladder stones.
Prior to admission was taking Basaglar 42 units @ HS, Metformin 500mg TID, repaglinide 1mg TID and Januvia 100mg daily.
States he uses Lito 2 CGM and sees and Endo in [place]. A1C 8.9%, Cr 1.6, eGFR 45.78. States he has had diabetes for 18 years. He has not seen his endo in close to a year. They have been traveling in a RV visiting different areas. Not
due to be back in [place] until end of December.
11/18 Pt awake, alert, needed to use BR, discussed briefly diabetes care and start of Farxiga today. Fasting glucose 178. Patient is NPO for procedure today. Expect glucose to be elevated today due to no HS lantus. Patient for ICD today, will
start farxiga 10 mg daily after procedure, continue AC novolog at reduced dose 15 units with low corrective insulin, metformin 1000 mg BID, Januvia 100 mg daily. Will resume HS lantus 32 units @ 2200. PLEASE check 3 AM glucose.
11/17 Fasting glucose 278. Patient received 20 units lantus AM. 32 units @ HS was ordered but held due to hs glucose 103. 3AM glucose not obtained. AC novolog increased from 15 units to 20 units with low corrective insulin. Continue Januvia 100
mg daily. Will restart metformin 1000 mg BID first dose with dinner today. CM reports cost of Donavanxiga and Jardiance both $20 per month.
Discussed with Nurse
Will follow for further needed adjustments.
Diabetes History
- -
Type of Diabetes: 2 requiring insulin
Pre-Admission Diabetes Regimen
11/17/24
09:51
Creatinine 1.3
Lab Results
Hemoglobin A1c Cancelled 11/12/24 20:45
Insulin Pump Settings
IP Diabetes Regimen
11/17/24 11/17/24 11/17/24
08:23 09:51 12:45
Glucose 293 H
POC Glucose 252 H 205 H
11/17/24 11/17/24 11/18/24
16:52 21:27 07:47
Glucose
POC Glucose 159 H 103 H 178 H
Meal type: Lunch
Meal type: Breakfast
Amount consumed: 100%
Amount consumed: 100%
Patient Education
[2024-11-18] MEDS: NOVOLOG FLEXPEN-LOW RESISTANCE 1 UNITS SC (08:34)
[2024-11-18] MEDS: LASIX 40 MG PO (08:35)
[2024-11-18] MEDS: ZESTRIL 5 MG PO (08:35)
[2024-11-18] MEDS: PROTONIX 40 MG PO ×2 (08:36→20:01)
[2024-11-18] MEDS: GLUCOPHAGE 1000 MG PO ×2 (08:36→19:59)
[2024-11-18] MEDS: MAGNESIUM OXIDE 500 MG PO (08:36)
[2024-11-18] MEDS: PROSCAR 5 MG PO (08:36)
[2024-11-18] MEDS: FLOMAX 0.8 MG PO (08:36)
[2024-11-18] MEDS: ZEBETA 2.5 MG PO ×2 (08:37→20:00)
[2024-11-18] MEDS: ALDACTONE 12.5 MG PO (08:38)
[2024-11-18] MEDS: LOW STRENGTH ASPIRIN 81 MG PO (08:38)
[2024-11-18] MEDS: NOVOLOG FLEXPEN SC ×3 (08:38→19:57)
[2024-11-18] MEDS: LIDOCAINE 4% PATCH 2 PATCH TOPICAL (08:39)
[2024-11-18] MEDS: CLARITIN 10 MG PO (08:47)
[2024-11-18] MEDS: JANUVIA 100 MG PO (08:47)
[2024-11-18 09:31] LABS: Blood Urea Nitrogen 37 mg/dl (9-20); Calcium 9.1 mg/dl (8.4-10.2); Carbon Dioxide 26 mmol/L (22-30); Chloride 98 mmol/L (98-107); Estimated Creatinine Clearance 75 ml/min; Glucose 201 mg/dl (70-99); Potassium 4.4 mmol/L (3.5-5.1); Sodium 136 mmol/L (135-145); eGFR 53.74
--- NOTE | 2024-11-18 10:36 | W.PN.HOSP.TC ---
Addendum entered and electronically signed by Radhika Interiano MD 11/18/24 14:11:
I saw and evaluated the patient independently. I reviewed the resident�s note and agree with findings and plan as documented by Dr. Hines.
GENERAL: well developed, well nourished, obese male in no apparent distress
HEENT: NC/AT--still on O2
HEART: regular rate and rhythm, +S1, +S2 with ectopy
LUNGS : decreased BS bilaterally
ABDOM: soft, nontender, nondistended, + bowel sounds
EXT: no cyanosis, clubbing, or edema
NEUROLOGIC: grossly intact
: schroeder
Witnessed Cardiac Arrest due to presumed Ventricular Fibrillation with CPR -- Reported V-Fib on initial tracings in patient with known heart disease/cardiomyopathy--cont amiodarone--finished targeted temp protocol and now normothermic--off
sedation--off levophed--ECHO with EF 20% (down from 35-40% in 2021), repeat improved to 30% with global hypokinesis--s/p cardiac cath without need for stents-- for defibrillator 11/18/24--apprec cards/clinical phlebotomist/neuro--repeat head CT without acute
intracranial abnormality
rib fractures--from CPR--pain control--PT/OT
troponin elevation--could be from CPR most likely--less so primary cardiac event--peaked at 2.09
VDRF--intubated for cardiac arrest--extubated
Lactic Acidosis/Abnormal LFTs--likely from cardiogenic shock from cardiac arrest--lactate acidosis resolved--restart diuresis
ASCVD - s/p prior stents - most recent about 20y ago per -- No recent issues with chest pain, exertional dyspnea, etc-- EKG with non-specific ST changes but no evident ST elevations noted-- IV heparin, daily ASA, etc.
Acute on Chronic HFrEF--LVEF=20% compared with 35-40% in 2021--CXR shows some degree of pulmonary edema - but no rales appreciated on exam--starting IV diuresis
Paroxysmal Atrial Fibrillation--s/p cardioversions and ablations--Currently in sinus rhythm--Not on any antiarrhythmic medications. Patient has declined OAC in the past.
Essential Hypertension--hold meds as needed--restart as able pending BP
Type 2 DM--Current hyperglycemia likely secondary to acute event-- notes that glucose has been well-controlled recently--adjust insulins as needed-- Cover with SSI as needed-- A1C 8.9--s/p glycemic protocol
Obesity due to excess calories--affects all aspects of care- - Encourage healthy diet and activity as able for goal of weight loss.
HUANG on CPAP-- resume nightly CPAP
BPH--Schroeder placed in the ED-- Patient scheduled for TURP in December.
DVT Proph
Code Status: Full
await PM&R eval
Original Note:
Today's Communication/Plan
-
Anticipate ICD today
Consult physiatry
Continue oral Lasix
Assessment / Plan
Assessment / Plan
Impression
Witnessed cardiac arrest due to presumed ventricular fibrillation
Troponin elevation
Acute hypoxic respiratory insufficiency
Lactic acidosis/abnormal LFTs
UTI positive Enterococcus
ASCVD s/p prior stents
Acute on chronic HFrEF
Paroxysmal atrial fibrillation
Essential hypertension
Type 2 diabetes
Obesity due to excess calories
HUANG on CPAP
BPH
Plan
Witnessed cardiac arrest due to presumed ventricular fibrillation --with CPR
s/p [facility] no stents placed. 20% stenosis RCA proximal, 40% RCA distal, LAD 40 to 50%.
Reported V-fib in ED initial tracing later torsades de pointes
Finished targeted temperature control now normothermic
Patient extubated on 11/14/2024
Off pressors
LVEF improved to 30%-35% with global hypokinesis
Anticipate ICD implantation today
Transition to oral Lasix
GDMT therapy, continue beta-massimo, Aldactone, CHANTEL
Consult CM for SGLT2 cost
Consult physiatry, PT/OT recommends acute rehab
Elevated troponin-- improved/resolved
Likely due to cardiac arrest and stress
Peaked at 2.09 and downtrending
Acute hypoxic respiratory insufficiency due to cardiac arrest/cardiogenic shock --- improved/resolved
On room air
Chest x-ray reveals mild cardiomegaly with suggestion of mild interstitial cardiogenic pulmonary edema, unchanged bilateral lower lobe airspace consolidation.
Lactic acidosis/abnormal LFTs-- improving
Likely cardiogenic shock from cardiac arrest
Lactate within normal limits- 1.7
LFTs downtrending
UTI positive Enterococcus recovered on culture
Continue IV Unasyn
Monitor temperature curve, WBC.
ASCVD s/p prior stents
Around 20 years ago per
No recent chest pain/shortness of breath/exertional dyspnea
EKG with nonspecific ST changes but no evidence of ST elevation
Continue IV heparin and daily aspirin
Chronic HFrEF
LVEF stable at 20%
Stop IV fluids and start IV lasix
Repeat echo
Paroxysmal Atrial Fibrillation--s/p cardioversions and ablations
Currently in sinus rhythm
Not on any antiarrhythmic medications.
Patient has declined OAC in the past.
Essential Hypertension
Resume to oral medication
Type 2 DM
Current hyperglycemia likely secondary to acute event
notes that glucose has been well-controlled recently
Basal 28 units and bolus 8 units
Goal blood glucose 140- 180
Obesity due to excess calories
affects all aspects of care
Encourage healthy diet and activity as able for goal of weight loss.
HUANG on CPAP--Currently on vent support - resume nightly CPAP after extubated.
BPH--Schroeder placed in the ED-- Patient scheduled for TURP in December.
DVT Proph--On therapeutic heparin.
Code Status: Full
Anticipated Discharge: > 48 hours
Subjective/Interval History
-
Date of Service: November 18, 2024
No overnight events
Objective Data
-
Labs:
Laboratory Results
11/18/24 11/18/24
04:16 08:12
WBC 7.4
Hgb 9.7 L
Hct 29.0 L
Plt Count 177
Sodium 136
Potassium 4.4
Chloride 98
Carbon Dioxide 26
BUN 37 H
Creatinine 1.4 H
Glucose 201 H
Calcium 9.1
Vital Signs:
Vital Signs
Temp Pulse Resp BP Pulse Ox
98.2 F 90 18 107/66 93
11/18/24 07:10 11/18/24 07:10 11/18/24 07:10 11/18/24 04:13 11/18/24 07:10
I&O
11/17/24 11/18/24 11/19/24
06:59 06:59 06:59
Intake Total 1168 / 1168 720 / 720
Output Total 2765 / 2765 850 / 850
Balance -1597 / -1597 -130 / -130
Review of Systems
-
All other systems: Reviewed and negative
Physical Exam
-
General: No Apparent Distress and Comfortable
HEENT: Normocephalic and Atraumatic
Respiratory: Clear to Auscultation
Cardiac: Regular Rhythm and S1/S2
Musculoskeletal: Edema, Right Lower Extrem (Improving) and Edema, Left Lower Extrem (Improving)
Skin: Warm and Dry
Neuro: AO x 3
Psych: Calm
Data Reviewed
-
Labs: Labs Reviewed by me and Discussed with Physician
--- NOTE | 2024-11-18 11:08 | CM ---
Reviewed chart. Met with and Mrs. Hancock to review discharge plans. We reviewed the co-pay for Noe and Dana. He is agreeable to the co-pay. He states he thinks he was Jardiance in the past and has an allergic reaction. [facility] at [place] [facility]iaison to update her. She states she does not drive the RV. She states she has a jeep that see is using for transportation. She states they have a services that will assist in getting his RV back to their home.
Medical work-up in progress. The [facility] if approved for admission when medically stable.
[2024-11-18] MEDS: LOVENOX SC (11:51)
[2024-11-18] MEDS: MIRALAX PO (11:51)
[2024-11-18] MEDS: FARXIGA 10 MG PO (11:53)
[2024-11-18] MEDS: NOVOLOG FLEXPEN-LOW RESISTANCE 2 UNITS SC (12:39)
[2024-11-18 12:43] LABS: Glucose - Point of Care 235 mg/dl (70-99)
[2024-11-18] MEDS: ANESTHETIC LOZENGE 1 LOZENGE PO ×2 (13:52→20:00)
--- NOTE | 2024-11-18 15:00 | PTCARENOTE ---
Pt received this am oob in the chair. Denies any pain or sob. Room air sat 95%. Pt NPO for ICD placement today. Gait steady with the walker. No c/o offered.
[2024-11-18 16:33] LABS: Glucose - Point of Care 179 mg/dl (70-99)
[2024-11-18 17:24] LABS: Glucose - Point of Care 172 mg/dl (70-99)
--- NOTE | 2024-11-18 17:53 | W.PN.CD ---
Today's Communication / Plan
-
- ICD today
Impression / Plan
-
Background: 69-year-old male with history of ischemic cardiomyopathy with recovered ejection fraction (EF 53% in 2022), atrial fibrillation s/p PVI (2005, 2015), CAD with reported remote PCI in 2007, insulin-dependent diabetes, obesity presents to
the emergency room via EMS status post out of hospital cardiac arrest.
Primary out of hospital VF arrest
Complex PVCs, multiform, and NSVT 3-4 beats
- Still with NSVT but less
- will need Amio at discharge
- Plan for dual chamber ICD
Hypoxic brain injury, improving
Nonischemic myocardial injury from VF/CPR/Shocks, peak troponin 2.09
HFrEF (LVEF 30-35%), Acute on chronic
- LVEDP at cath 26 mmHg 11/15/2024
- Follows with Dr. Muñoz from [facility] ([place]). Reviewed outside records.
- Last TTE August 2022: Moderately dilated LV, LVEF 53%, severe LA dilation, mild MR, moderate PH.
- Adding back GDMT - ASA, Lipitor, Bisoprolol, Lisinopril, Januvia, Aldactone
- Holding Januvia - Cr is going up. Will hold aldactone as well. On lasix. - Hold.
CAD with remote PCI => no obstructive CAD at cath 11/15/2204, IVUS of LM was negative
Paroxysmal atrial fibrillation status post PVI, Declined anticoagulation in the past.
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
Diabetes
-Management per primary.
-He would benefit from SGLT2i and GLP-1 medications.
Subjective/Interval History:
Reviewed rational for ICD.
DATA:
CT Head, 11/15/2024:
IMPRESSION:
No acute intracranial abnormality.
Echocardiogram, 11/15/2024:
CONCLUSIONS
Technically difficult study - Definity used.
Moderately reduced left ventricular systolic function.
Global hypokinesis with left ventricular ejection fraction of 30-35% by visual
estimate.
No significant valvular disease.
Mildly dilated aortic root.
Compared to previous echo 11/12/24, the ejection fraction has improved from 20%
on the prior study.
EEG, 11/15/2024:
CLINICAL CORRELATION:
This study was suggestive of diffuse cortical dysfunction without focal abnormality. No seizures were recorded.
Clinical correlation is advised.
Physical Exam
Vital Signs/Labs
Vital Signs
Temp Pulse Resp BP Pulse Ox
98.7 F 84 20 102/65 92
11/18/24 15:11 11/18/24 13:00 11/18/24 15:11 11/18/24 11:19 11/18/24 15:11
11/17/24 11/18/24 11/19/24
06:59 06:59 06:59
Actual Weight 150.5 kg 151.8 kg
11/18/24 04:16
11/18/24 08:12
PT 15.5 Sec (11.4-14.6) H 11/15/24 02:43
INR 1.20 11/15/24 02:43
APTT Cancelled 11/15/24 17:45
Magnesium 1.8 mg/dl (1.6-2.3) 11/18/24 04:16
Triglycerides 179 mg/dl (10-149) H 11/18/24 04:16
LDL Cholesterol, Calc 18 mg/dl 11/13/24 07:48
VLDL Cholesterol, Calc 37 mg/dl (0-30) H 11/13/24 07:48
HDL Cholesterol 25 mg/dl 11/13/24 07:48
11/12/24 11/16/24
17:49 04:50
[id number] Pept 638 [id number]
Physical Exam
Constitutional: No acute distress and Comfortable
EENT: Anicteric and Moist mucous membranes
Cardiovascular: Rhythm & rate is regular, Pedal edema is absent and JVD pressure is normal
Respiratory: Respiratory effort normal and Lungs clear to auscul.
GI: Soft, Non tender and Normal bowel sounds
Neuro/Psych: Alert, Oriented and AO x 3
Other: Cath Site and Cardiac Device Site
Data Reviewed
-
Date of Service: November 18, 2024
Medical Decision Making: Reviewed Test Results, Test Interpretation and Review of Case with other Provider
EKG: Tracing Personally Visualized and interpreted
Echo: Report Reviewed by me
Labs: Labs Reviewed by me
Old Records: Reviewed
--- NOTE | 2024-11-18 19:28 | ITS.CL.ICD ---
[employer] - ICD
Implantable Cardioverter Defibrillator
Procedure Report:
Dual Chamber Implantable Cardioverter Defibrillator Placement:
Mr. Hancock is a very pleasant 69 yr old gentleman with history of ischemic cardiomyopathy with recovered ejection fraction (EF 53% in 2022; now 30%), atrial fibrillation s/p PVI (2005, 2015), CAD with reported remote PCI in 2007, insulin-dependent
diabetes, obesity presents to the emergency room via EMS status post out of hospital cardiac arrest and is noted to have bouts of ventricular tachycardia s/o cardiac cath without any obstructive coronary artery disease is recommended a dual chamber
ICD with his h/o atrial arrhythmias.
Indications: Cardiac arrest.
Date of the Procedure:
11/18/2024
Pre-Operative Diagnosis: Cardiac arrest and ventricular tachycardia.
Post-Operative Diagnosis: Cardiac arrest and ventricular tachycardia.
Procedure Performed: DUAL CHAMBER IMPLANTABLE CARDIOVERTER DEFIBRILLATOR IMPLANTATION
Performing Physician:
Lorraine Barr MD
Anesthesia:
See anesthesia report
Detailed Description of the Procedure:
The patient was identified using hospital identification and informed consent obtained for the procedure. The risks were explained including, but not limited to: Bleeding, infection, arrhythmia, stroke, vascular/cardiac/lung puncture, surgery,
pacemaker dependency/device malfunction. All questions were answered.
The patient was brought to the electrophysiology laboratory in stable condition in fasting state. Continuous electrocardiographic and hemodynamic monitoring was initiated. The initial rhythm was sinus.
The procedure site was meticulously prepared with surgical scrub and allowed to dry with no pooling. Sterile draping was applied to cover the procedure site. The image intensifier was draped with sterile bag and positioned over the patient.
The left infra-clavicular region was prepped and draped in the usual sterile fashion. Local anesthesia was administered subcutaneously using 1% lidocaine / Bupivacaine. The left cephalic vein cut-down was performed with an incision at the
delto-pectoral groove, and vascular sheaths were introduced for lead access. These were advanced into the right ventricle and the right atrium.
The right ventricular lead was secured in position with an active fixation technique at the apical septal location.
The RA lead was attached in the right atrial appendage with active fixation.
There was excellent sensing, pacing, and impedance from the leads, with no diaphragmatic stimulation at 10 V output.�Bovie cautery, antibiotics, and fluoroscopy were used.
The sheath was withdrawn, and the thresholds remained acceptable. The lead was secured in position at the venous entry site with 2-0 Ethibond. A pocket was fashioned contiguous to the incision. The electrode terminals were connected to the pulse
generator, which was placed into the pocket. The wound was irrigated thoroughly with antibiotic solution and closed in 3 layers using 2-0 VLoc sutures followed by 2 layers of 4-0 monocryl sutures. Steri-Strips and ac bandage were applied externally.�
Procedure End:
The procedure was tolerated well. A bandage was applied to the incision area.
Estimated Blood loss:
5 cc
Fluoro time:
2.7min / 19.1 mGy / 2.12 Gycm2
Specimens Removed:
No cultures and no specimens were obtained. No intraoperative pathology was identified.
Urine output:
None
Packs / Drains/ Tubes:
None
Instrument / Sponge Count Correct:
Yes
Complications of the Procedure:
None
Condition of Patient at Time of Transfer:
Hemodynamically stable with no neurological or vascular compromise.
Device information:�
Generator: [employer]; Model: [id number]; Serial # [id number]�
Atrial Lead: [employer]; Model: 5076-52; Serial # [id number]
Measured data in the right atrium was sensing of 1.5 mV, impedance of 430 ohms and threshold of 1.0 V at 0.4ms�
RV Lead: [employer] Model: [id number]-[id number]; Serial # [id number]
Measured data in the RV lead was sensing of 12 mV, impedance of 475 ohms and threshold of 0.75 V at 0.4ms�
PROGRAMMING PARAMETERS:�
Kamaljit parameter settings were AAIR <=>DDDR 60-130 bpm. �
��������������� Mode switch: On
��������������� Paced AV delay: 130 ms
��������������� Sensed AV delay: 120 ms
��������������� Rate Adaptive A-V Interval: Off
Output parameters:
������������������������������� Amplitude (V)������������������� Pulse Width (ms)������������� Sensitivity (mV)
��������������� RA: ������� 3.5 ������������������������ ��������������� 0.4������������������������� ��������������� 0.3
��������������� RV:�������� 3.5������������������������� ��������������� 0.4������������������������� ��������������� 0.3
Tachy parameter settings:
��������������� SVT discrimination: On
��������������� AF/AFl: On
��������������� SVT limit: 260 msec
��������������� VT zone:
������������������������������� Slow VT: 150 - 188 bpm --> Monitor
������������������������������� Fast VT/VF: >188 bpm --> Shock x6 (ATP before and during)
�
Summary:
Successful implantation of MRI compatible dual chamber [employer] implantable Cardioverter Defibrillator.�
Results/Recommendations:
-Please follow up CXR�
1. Please provide patient with adequate pain control�
Instructions to be given to patient:�
- Please follow up with [facility] at [address] [place] [address] ([phone]) to get your wound checked within 14 days of your discharge.
- Do not soak incision site until after it is evaluated at cardiology clinic. OK to showers followed by dab dry the area. No baths or swimming until then. Sponge baths are OK.�
- Allow 'steri strips' to fall off on their own�
- Do not lift left elbow above shoulder, particularly with sudden jerking movements, for 1 month�
- Do not lift anything weighing more than 5 pounds with the left arm for 1 month�
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
Lorraine Barr MD
Electrophysiology
[2024-11-18] MEDS: DUONEB INH (19:29)
[2024-11-18] MEDS: ANCEF 15 MG IV (19:32)
[2024-11-18 19:57] LABS: Glucose - Point of Care 176 mg/dl (70-99)
[2024-11-18] MEDS: NOVOLOG FLEXPEN-LOW RESISTANCE SC (19:58)
[2024-11-18] MEDS: LIPITOR 80 MG PO (20:00)
[2024-11-18] MEDS: TYLENOL 650 MG PO (20:00)
--- NOTE | 2024-11-18 21:30 | PTCARENOTE ---
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 pt aaox3, able to make needs known, denies pain or SOB, O2 sat 95% RA. Sinus rhythm on the monitor, HR 80's, BP WNL. Pt
educated on post procedure restrictions, verbalizes understaging. Pt sent for f/u CXR post procedure, see reports. Blood sugar obtained before eating, 176. Call wilcox within reach.
[2024-11-18] MEDS: SENOKOT 17.2 MG PO (22:05)
[2024-11-18] MEDS: LANTUS 0.32 UNITS SC (22:05)
[2024-11-18] MEDS: XALATAN OPHTHALMIC SOLUTION 1 DROP RIGHT EYE (22:05)
[2024-11-18 22:46] LABS: Glucose - Point of Care 301 mg/dl (70-99)
[2024-11-18] MEDS: NOVOLOG FLEXPEN 3 UNITS SC (23:50)
[2024-11-19] VITALS (10 sets, daily range): BP systolic 83–120; BP diastolic 52–72; PULSE 84; O2SAT 96; BMI 42.3
[2024-11-19] MEDS: UNASYN IV ×4 (00:07→18:08)
--- NOTE | 2024-11-19 00:10 | PTCARENOTE ---
Pt ate dinner at around 1999, rechecked blood sugar at 2244 and resulted 301, educational institution president ARI Al made aware of results. New order novolog 3 units administered, pt asymptomatic. will recheck within 2hr.
[2024-11-19 01:44] LABS: Glucose - Point of Care 237 mg/dl (70-99)
[2024-11-19 03:13] LABS: Glucose - Point of Care 229 mg/dl (70-99)
[2024-11-19 04:31] LABS: % Basophils 0.3 % (0-2); % Eosinophils 0.3 % (0-6); % Immature Granulocytes 1.5 % (0-0.5); % Lymphocytes 6.5 % (20.5-51.1); % Monocytes 3.2 % (1.7-9.3); % Neutrophils 88.2 % (42.2-75.2); Absolute Immature Granulocytes 0.1 10^3/uL (0-0.05); Absolute Lymphocytes 0.5 10^3/uL (1.2-3.4); Absolute Monocytes 0.2 10^3/uL (0.1-0.6); Absolute Neutrophils 6.3 10^3/uL (1.4-6.5); Hematocrit 30.6 % (39.0-52.0); Hemoglobin 10.1 g/dL (13.0-18.0); Mean Corpuscular Hgb 27.7 pg (27.0-31.0); Mean Corpuscular Volume 84.1 fL (80.0-94.0); Mean Platelet Volume 10.7 fL (7.4-10.4); Nucleated Red Blood Cells % 0 % (-); Platelet Count 203 10^3/uL (130-400); Red Blood Cell Count 3.64 10^6/uL (4.70-6.10); White Blood Cell Count 7.1 10^3/uL (4.8-10.8)
[2024-11-19 04:42] LABS: Blood Urea Nitrogen 43 mg/dl (9-20); Carbon Dioxide 27 mmol/L (22-30); Chloride 101 mmol/L (98-107); Estimated Creatinine Clearance 65 ml/min; Glucose 230 mg/dl (70-99); Potassium 5.2 mmol/L (3.5-5.1); Sodium 137 mmol/L (135-145); eGFR 45.78
--- NOTE | 2024-11-19 05:15 | PTCARENOTE ---
Pt slept well through the night, dsg to left upper chest remains intact, left arm sling on, no c/o pain or SOB noted. Pt continues with occ moist productive cough, coughing up thick dark yellow mucus, remains on IV unasun. Sinus rhythm on the
monitor during night, HR 70-90's. Ambulated to bathroom with stand by assist, urine dark yellow/ anat color. EKG and AM labs done. Call wilcox within reach.
[2024-11-19] MEDS: DUONEB 3 ML INH ×2 (07:23→20:03)
--- NOTE | 2024-11-19 07:30 | W.PN.CD ---
Today's Communication / Plan
-
- Hold lasix, farxiga and aldactone with rising Cr
- ICD is in place and working well. PRn atrial pacing noted.
Impression / Plan
-
Background: 69-year-old male with history of ischemic cardiomyopathy with recovered ejection fraction (EF 53% in 2022), atrial fibrillation s/p PVI (2005, 2015), CAD with reported remote PCI in 2007, insulin-dependent diabetes, obesity presents to
the emergency room via EMS status post out of hospital cardiac arrest.
Primary out of hospital VF arrest
Complex PVCs, multiform, and NSVT 3-4 beats
- Still with NSVT but less
- will need Amio for VT
- s/p dual chamber ICD 11/18/24- No contrast used to avoid renal injury
- LBBB but the QRS was narrow to 145 ms and decided to keep mary's igloo conduction as patient is not likely to pace the rv
Hypoxic brain injury, improving
Nonischemic myocardial injury from VF/CPR/Shocks, peak troponin 2.09
HFrEF (LVEF 30-35%), Acute on chronic
- LVEDP at cath 26 mmHg 11/15/2024
- Follows with Dr. Muñoz from [facility] ([place]). Reviewed outside records.
- Last TTE August 2022: Moderately dilated LV, LVEF 53%, severe LA dilation, mild MR, moderate PH.
- Adding back GDMT - ASA, Lipitor, Bisoprolol, Lisinopril, Januvia, Aldactone
- Holding Januvia - Cr is going up. Will hold aldactone as well. On lasix. - Hold.
CAD with remote PCI => no obstructive CAD at cath 11/15/2204, IVUS of LM was negative
Paroxysmal atrial fibrillation status post PVI, Declined anticoagulation in the past.
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
Diabetes
-Management per primary.
-He would benefit from SGLT2i and GLP-1 medications.
Subjective/Interval History:
s/p ICD.
DATA:
CT Head, 11/15/2024:
IMPRESSION:
No acute intracranial abnormality.
Echocardiogram, 11/15/2024:
CONCLUSIONS
Technically difficult study - Definity used.
Moderately reduced left ventricular systolic function.
Global hypokinesis with left ventricular ejection fraction of 30-35% by visual
estimate.
No significant valvular disease.
Mildly dilated aortic root.
Compared to previous echo 11/12/24, the ejection fraction has improved from 20%
on the prior study.
EEG, 11/15/2024:
CLINICAL CORRELATION:
This study was suggestive of diffuse cortical dysfunction without focal abnormality. No seizures were recorded.
Clinical correlation is advised.
Physical Exam
Vital Signs/Labs
Vital Signs
Temp Pulse Resp BP Pulse Ox
97.7 F 95 16 113/72 97
11/19/24 07:27 11/19/24 07:28 11/19/24 07:28 11/19/24 03:10 11/19/24 07:28
11/18/24 11/19/24 11/20/24
06:59 06:59 06:59
Actual Weight 151.8 kg 149.3 kg
11/19/24 03:36
11/19/24 03:36
PT 15.5 Sec (11.4-14.6) H 11/15/24 02:43
INR 1.20 11/15/24 02:43
APTT Cancelled 11/15/24 17:45
Magnesium 2.0 mg/dl (1.6-2.3) 11/19/24 03:36
Triglycerides 179 mg/dl (10-149) H 11/18/24 04:16
LDL Cholesterol, Calc 18 mg/dl 11/13/24 07:48
VLDL Cholesterol, Calc 37 mg/dl (0-30) H 11/13/24 07:48
HDL Cholesterol 25 mg/dl 11/13/24 07:48
11/12/24 11/16/24
17:49 04:50
Pjn-P-Hyaxhlwwjkb Pept 638 3200
Physical Exam
Constitutional: No acute distress and Comfortable
EENT: Anicteric and Moist mucous membranes
Cardiovascular: Rhythm & rate is regular, Pedal edema is absent and JVD pressure is normal
Respiratory: Respiratory effort normal, Lungs clear to auscul. and Wheeze Absent
GI: Soft, Distention absent, Non tender and Normal bowel sounds
Neuro/Psych: Alert, Oriented and AO x 3
Other: Skin and Cardiac Device Site
Data Reviewed
-
Date of Service: November 19, 2024
Medical Decision Making: Reviewed Test Results, Test Interpretation and Review of Case with other Provider
EKG: Tracing Personally Visualized and interpreted
Echo: Report Reviewed by me
X-Ray/CT/US/MRI/NUC/PET: Image Personally Visualized and interpreted
Labs: Labs Reviewed by me
Old Records: Reviewed
[2024-11-19 08:13] LABS: Glucose - Point of Care 224 mg/dl (70-99)
[2024-11-19] MEDS: MAGNESIUM OXIDE 500 MG PO (08:13)
--- NOTE | 2024-11-19 08:13 | PN.DE.MGMTRT ---
Insulin Management
- -
11/19/2024: Diabetes Management Follow up
Patient admitted 11/12 s/p witnessed cardiac arrest. He had passed out in the parking lot after going target-shooting with his and family friend, and pt became completely unresponsive while in the combine driver seat. His family started CPR on him but
his body positioning was difficult in the car so they grabbed someone from inside a store and they continued CPR until EMS arrived. CPR was reportedly started immediately. EMS said initial rhythm was VF, and delivered 5 shocks, 4mg of epinephrine,
150 mg lidocaine and 2 g of magnesium for reported torsades de pointes. He was intubated in the field with ROSC obtained and then brought here to ER.
PMH: Chronic HFrEF, A-fib not on AC s/p PVI + DCCV, CAD s/p stents x 4, HTN, HLD, T2DM on insulin, HUANG, BPH, GERD, glaucoma, allergies, bladder stones.
Prior to admission was taking Basaglar 42 units @ HS, Metformin 500mg TID, repaglinide 1mg TID and Januvia 100mg daily.
States he uses Lito 2 CGM and sees and Endo in [place]. A1C 8.9%, Cr 1.6, eGFR 45.78. States he has had diabetes for 18 years. He has not seen his endo in close to a year. They have been traveling in a RV visiting different areas. Not
due to be back in [place] until end of December.
Pt awake, alert, offers no complaints, able to discuss diabetes care, at bedside, very supportive.
Farxiga was started yesterday and AC NovoLog was reduced to 15 units with low corrective insulin.
pt received Lantus 32 units @hs, 3 AM glucose was 230 V, FBG 224 POC. Cr 1.6, eGFR 45.78 today. Will HOLD Metformin and Farxiga
Will increase HS Lantus to 35 units and AC NovoLog to 17 units, cont Januvia 100 mg daily and low corrective insulin with meals.
CM reports cost of Farxiga and Jardiance both $20 per month.
Will cont to follow for further needed adjustments. Discussed with Nurse
Diabetes History
- -
Type of Diabetes: 2 requiring insulin
Pre-Admission Diabetes Regimen
11/18/24 11/19/24
08:12 03:36
Creatinine 1.4 H 1.6 H
Lab Results
Hemoglobin A1c Cancelled 11/12/24 20:45
Insulin Pump Settings
IP Diabetes Regimen
11/18/24 11/18/24 11/18/24
08:12 12:37 16:32
Glucose 201 H
POC Glucose 235 H 179 H
11/18/24 11/18/24 11/18/24
17:19 19:56 22:44
Glucose
POC Glucose 172 H 176 H 301 H
11/19/24 11/19/24 11/19/24
01:42 03:11 03:36
Glucose 230 H
POC Glucose 237 H 229 H
Meal type: Dinner
Amount consumed: 100%
Patient Education
[2024-11-19] MEDS: PROSCAR 5 MG PO (08:14)
[2024-11-19] MEDS: PROTONIX 40 MG PO ×2 (08:14→20:40)
[2024-11-19] MEDS: CLARITIN 10 MG PO (08:14)
[2024-11-19] MEDS: GLUCOPHAGE 1000 MG PO (08:14)
[2024-11-19] MEDS: JANUVIA 100 MG PO (08:14)
[2024-11-19] MEDS: ZESTRIL 5 MG PO (08:15)
[2024-11-19] MEDS: LOW STRENGTH ASPIRIN 81 MG PO (08:15)
[2024-11-19] MEDS: ZEBETA 2.5 MG PO ×2 (08:16→20:40)
[2024-11-19] MEDS: NOVOLOG FLEXPEN 15 UNITS SC (08:17)
[2024-11-19] MEDS: NOVOLOG FLEXPEN-LOW RESISTANCE 2 UNITS SC (08:18)
[2024-11-19] MEDS: LIDOCAINE 4% PATCH 2 PATCH TOPICAL (08:26)
[2024-11-19] MEDS: MIRALAX 17 GRAMS PO (08:26)
[2024-11-19] MEDS: FLOMAX 0.8 MG PO (08:27)
[2024-11-19] MEDS: TYLENOL 650 MG PO ×2 (08:32→20:39)
--- NOTE | 2024-11-19 09:32 | PTCARENOTE ---
Rec'd pt this shift awake and alert, pts at bedside. Pt with left chest wall with pressure dsg and left arm immobilizer in place. Pt NSR on monitor, RA. Tylenol given for left flank pain. See worklist for VS/I and O and assessments.
[2024-11-19 11:54] LABS: Glucose - Point of Care 186 mg/dl (70-99)
[2024-11-19] MEDS: NOVOLOG FLEXPEN 17 UNITS SC ×2 (11:55→17:33)
[2024-11-19] MEDS: NOVOLOG FLEXPEN-LOW RESISTANCE 1 UNITS SC (11:56)
--- NOTE | 2024-11-19 12:01 | CM ---
Reviewed chart. Telephone call to [facility]. to check on bed availability. [facility] has a bed available if medically stable. TT resident regarding discharge. Mr. Hancock is not ready for transfer to [facility]. today. He maybe ready tomorrow.
Met with and Mrs. Hancock to review discharge plans. They are aware of possible transfer on to [facility]. soon. Will need to call Percy at [facility] at ([phone]) if he is ready fro transfer tomorrow. We also need to call report to
([phone]). Medical work-up in progress. The discharge plan is to go to [facility]. when medically stable.
--- NOTE | 2024-11-19 13:18 | W.PN.HOSP.TC ---
Addendum entered and electronically signed by Radhika Interiano MD 11/19/24 13:47:
I saw and evaluated the patient independently. I reviewed the resident�s note and agree with findings and plan as documented by Dr. Hines.
GENERAL: well developed, well nourished, obese male in no apparent distress
HEENT: NC/AT--still on O2
HEART: regular rate and rhythm, +S1, +S2 with ectopy
LUNGS : decreased BS bilaterally
ABDOM: soft, nontender, nondistended, + bowel sounds
EXT: no cyanosis, clubbing, or edema
NEUROLOGIC: grossly intact
: schroeder
Witnessed Cardiac Arrest due to presumed Ventricular Fibrillation with CPR -- Reported V-Fib on initial tracings in patient with known heart disease/cardiomyopathy--cont amiodarone--finished targeted temp protocol and now normothermic--off
sedation--off levophed--ECHO with EF 20% (down from 35-40% in 2021), repeat improved to 30% with global hypokinesis--s/p cardiac cath without need for stents--s/p defibrillator 11/18/24--apprec cards/caterers helper/neuro--repeat head CT without acute
intracranial abnormality
ALBER--likely due to overdiuresis--hold lasix, aldactone, Farxiga--recheck BMP in AM
rib fractures--from CPR--pain control--PT/OT
troponin elevation--could be from CPR most likely--less so primary cardiac event--peaked at 2.09
VDRF--intubated for cardiac arrest--extubated
Lactic Acidosis/Abnormal LFTs--likely from cardiogenic shock from cardiac arrest--lactate acidosis resolved--restart diuresis
ASCVD - s/p prior stents - most recent about 20y ago per -- No recent issues with chest pain, exertional dyspnea, etc-- EKG with non-specific ST changes but no evident ST elevations noted-- IV heparin, daily ASA, etc.
Acute on Chronic HFrEF--LVEF=20% compared with 35-40% in 2021--CXR shows some degree of pulmonary edema - but no rales appreciated on exam--starting IV diuresis
Paroxysmal Atrial Fibrillation--s/p cardioversions and ablations--Currently in sinus rhythm--Not on any antiarrhythmic medications. Patient has declined OAC in the past.
Essential Hypertension--hold meds as needed--restart as able pending BP
Type 2 DM--Current hyperglycemia likely secondary to acute event-- notes that glucose has been well-controlled recently--adjust insulins as needed-- Cover with SSI as needed-- A1C 8.9--s/p glycemic protocol
Obesity due to excess calories--affects all aspects of care- - Encourage healthy diet and activity as able for goal of weight loss.
HUANG on CPAP-- resume nightly CPAP
BPH--Schroeder placed in the ED-- Patient scheduled for TURP in December.
DVT Proph
Code Status: Full
dispo--to [facility] when medically stable--hopefully in AM
Original Note:
Today's Communication/Plan
-
Held Lasix, Farxiga, Aldactone as creatinine is 1.6>1.4
Held discharge [facility] due to elevated creatinine level, cardiology aware
Repeat BMP in a.m.
Assessment / Plan
Assessment / Plan
Impression
Witnessed cardiac arrest due to presumed ventricular fibrillation
Troponin elevation
Acute hypoxic respiratory insufficiency
Lactic acidosis/abnormal LFTs
UTI positive Enterococcus
ASCVD s/p prior stents
Acute on chronic HFrEF
Paroxysmal atrial fibrillation
Essential hypertension
Type 2 diabetes
Obesity due to excess calories
HUANG on CPAP
BPH
Plan
Witnessed cardiac arrest due to presumed ventricular fibrillation --with CPR
s/p [facility] no stents placed. 20% stenosis RCA proximal, 40% RCA distal, LAD 40 to 50%.
Reported V-fib in ED initial tracing later torsades de pointes
Finished targeted temperature control now normothermic
Patient extubated on 11/14/2024
Off pressors
LVEF improved to 30%-35% with global hypokinesis
Anticipate ICD implantation today
Hold oral Lasix
GDMT therapy, continue beta-massimo, CHANTEL.
Hold Aldactone Hold Farxiga
S/p ICD implantation on 11/18/2024
Patient has been accepted to [facility] however creatinine 1.6. Cards recommend to wait another day and repeat BMP in a.m.
If creatinine is at baseline discharge plan to [facility] tomorrow
Elevated troponin-- improved/resolved
Likely due to cardiac arrest and stress
Peaked at 2.09 and downtrending
Acute hypoxic respiratory insufficiency due to cardiac arrest/cardiogenic shock --- improved/resolved
On room air
Chest x-ray reveals mild cardiomegaly with suggestion of mild interstitial cardiogenic pulmonary edema, unchanged bilateral lower lobe airspace consolidation.
Lactic acidosis/abnormal LFTs-- improving
Likely cardiogenic shock from cardiac arrest
Lactate within normal limits- 1.7
LFTs downtrending
UTI positive Enterococcus recovered on culture
Continue IV Unasyn
Monitor temperature curve, WBC.
ASCVD s/p prior stents
Around 20 years ago per
No recent chest pain/shortness of breath/exertional dyspnea
EKG with nonspecific ST changes but no evidence of ST elevation
Continue IV heparin and daily aspirin
Chronic HFrEF
LVEF stable at 20%
Stop IV fluids and start IV lasix
Repeat echo
Paroxysmal Atrial Fibrillation--s/p cardioversions and ablations
Currently in sinus rhythm
Not on any antiarrhythmic medications.
Patient has declined OAC in the past.
Essential Hypertension
Resume to oral medication
Type 2 DM
Current hyperglycemia likely secondary to acute event
notes that glucose has been well-controlled recently
Basal 28 units and bolus 8 units
Goal blood glucose 140- 180
Obesity due to excess calories
affects all aspects of care
Encourage healthy diet and activity as able for goal of weight loss.
HUANG on CPAP--Currently on vent support - resume nightly CPAP after extubated.
BPH--Schroeder placed in the ED-- Patient scheduled for TURP in December.
DVT Proph--On therapeutic heparin.
Code Status: Full
Anticipated Discharge: 24 - 48 hours
Subjective/Interval History
-
Date of Service: November 19, 2024
No overnight events
Objective Data
-
Labs:
Laboratory Results
11/19/24
03:36
WBC 7.1
Hgb 10.1 L
Hct 30.6 L
Plt Count 203
Sodium 137
Potassium 5.2 H
Chloride 101
Carbon Dioxide 27
BUN 43 H
Creatinine 1.6 H
Glucose 230 H
Calcium 9.0
Vital Signs:
Vital Signs
Temp Pulse Resp BP Pulse Ox
98.6 F 101 20 96/62 92
11/19/24 11:10 11/19/24 12:00 11/19/24 11:10 11/19/24 11:40 11/19/24 11:40
I&O
11/18/24 11/19/24 11/20/24
06:59 06:59 06:59
Intake Total 720 / 720 840 / 840
Output Total 850 / 850 260 / 260
Balance -130 / -130 580 / 580
Review of Systems
-
All other systems: Reviewed and negative
Physical Exam
-
General: No Apparent Distress and Comfortable
HEENT: Normocephalic and Atraumatic
Respiratory: Clear to Auscultation
Cardiac: Regular Rhythm, S1/S2 and Other (S/p ICD implantation)
GI: Soft, Nontender and Nondistended
Musculoskeletal: No Edema
Neuro: AO x 3
Psych: Calm
Data Reviewed
-
Labs: Labs Reviewed by me and Discussed with Physician
--- NOTE | 2024-11-19 13:55 | PTCARENOTE ---
Pt OOB up in chair most of shift, ambulating with one person assist, tolerated well. Left chest pressure dsg removed by Dr. Barr. suly C,D and Intact.
[2024-11-19 17:16] LABS: Glucose - Point of Care 90 mg/dl (70-99)
[2024-11-19] MEDS: NOVOLOG FLEXPEN-LOW RESISTANCE SC (17:34)
[2024-11-19] MEDS: LIPITOR 80 MG PO (18:08)
[2024-11-19] MEDS: SENOKOT PO (20:39)
[2024-11-19 21:32] LABS: Glucose - Point of Care 122 mg/dl (70-99)
[2024-11-19] MEDS: ANESTHETIC LOZENGE 1 LOZENGE PO (22:00)
[2024-11-19] MEDS: XALATAN OPHTHALMIC SOLUTION 1 DROP RIGHT EYE (22:01)
[2024-11-19] MEDS: LANTUS 0.35 UNITS SC (22:01)
[2024-11-20] MEDS: UNASYN IV ×3 (00:39→11:23)
[2024-11-20 03:53] VITALS: BP 108/73
[2024-11-20] MEDS: TYLENOL 650 MG PO ×2 (04:32→15:13)
--- NOTE | 2024-11-20 05:06 | PTCARENOTE ---
Pt with multifocal PVC couplets, denies chest pain or SOB. Left flank pain 3/10, Tylenol PRN given. Left arm swollen, IV removed and arm elevated. Safety measures in place, call wilcox in reach
[2024-11-20 05:09] LABS: Hematocrit 29.5 % (39.0-52.0); Hemoglobin 9.9 g/dL (13.0-18.0); Mean Corp Hgb Conc. 33.6 g/dL (33.0-37.0); Mean Corpuscular Hgb 28.1 pg (27.0-31.0); Mean Corpuscular Volume 83.8 fL (80.0-94.0); Mean Platelet Volume 10.4 fL (7.4-10.4); Platelet Count 202 10^3/uL (130-400); Red Blood Cell Count 3.52 10^6/uL (4.70-6.10); Red Cell Dist. Width 15.4 % (11.5-14.5); White Blood Cell Count 9.2 10^3/uL (4.8-10.8)
[2024-11-20 05:32] LABS: Blood Urea Nitrogen 44 mg/dl (9-20); Calcium 8.8 mg/dl (8.4-10.2); Carbon Dioxide 25 mmol/L (22-30); Chloride 102 mmol/L (98-107); Estimated Creatinine Clearance 80 ml/min; Glucose 125 mg/dl (70-99); Potassium 4.1 mmol/L (3.5-5.1); Sodium 138 mmol/L (135-145); eGFR 58.73
[2024-11-20 06:00] VITALS: BMI 42.5
[2024-11-20 07:12] VITALS: BP 105/71
[2024-11-20 07:15] LABS: Glucose - Point of Care 134 mg/dl (70-99)
[2024-11-20] MEDS: DUONEB 3 ML INH (07:51)
--- NOTE | 2024-11-20 08:44 | W.PN.CD ---
Today's Communication / Plan
-
Cr improved
add back farxiga
amiodarone 200mg daily.
will con't to hold on lasix as appears euvolemic.
Discussed ICD care , L arm restrictions with pt and .
Impression / Plan
-
Background: 69-year-old male with history of ischemic cardiomyopathy with recovered ejection fraction (EF 53% in 2022), atrial fibrillation s/p PVI (2005, 2015), CAD with reported remote PCI in 2007, insulin-dependent diabetes, obesity presents to
the emergency room via EMS status post out of hospital cardiac arrest.
Primary out of hospital VF arrest
Complex PVCs, multiform, and NSVT 3-4 beats
- s/p dual chamber ICD 11/18/24- No contrast used to avoid renal injury
- LBBB but the QRS was narrow to 145 ms and decided to keep [place] conduction as patient is not likely to pace the rv
Hypoxic brain injury, improving , plan is for [facility]
Nonischemic myocardial injury from VF/CPR/Shocks, peak troponin 2.09
HFrEF (LVEF 30-35%), Acute on chronic
- LVEDP at cath 26 mmHg 11/15/2024
- Follows with Dr. Muñoz from [facility]). Reviewed outside records. - Last TTE August 2022: Moderately dilated LV, LVEF 53%, severe LA dilation, mild
-meds were held secondary to increased Cr. Now Cr improved. Will layer back spironolactone and farxiga.
-BMP to be monitored at [facility].
CAD with remote PCI => no obstructive CAD at cath 11/15/2204, IVUS of LM was negative
Paroxysmal atrial fibrillation status post PVI, Declined anticoagulation in the past.
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
Diabetes
-Management per primary.
Subjective/Interval History:
Some rib and chest discomfort from CPR.
ICD site stable
Denies CP,palps, SOB
DATA:
CT Head, 11/15/2024:
IMPRESSION:
No acute intracranial abnormality.
Echocardiogram, 11/15/2024:
CONCLUSIONS
Technically difficult study - Definity used.
Moderately reduced left ventricular systolic function.
Global hypokinesis with left ventricular ejection fraction of 30-35% by visual
estimate.
No significant valvular disease.
Mildly dilated aortic root.
Compared to previous echo 11/12/24, the ejection fraction has improved from 20%
on the prior study.
EEG, 11/15/2024:
CLINICAL CORRELATION:
This study was suggestive of diffuse cortical dysfunction without focal abnormality. No seizures were recorded.
Clinical correlation is advised.
Physical Exam
Vital Signs/Labs
Vital Signs
Temp Pulse Resp BP Pulse Ox
97.5 F 69 16 108/73 96
11/20/24 07:18 11/20/24 07:56 11/20/24 07:56 11/20/24 03:53 11/20/24 07:56
11/19/24 11/20/24 11/21/24
06:59 06:59 06:59
Actual Weight 149.3 kg 150 kg
11/20/24 04:24
11/20/24 04:24
PT 15.5 Sec (11.4-14.6) H 11/15/24 02:43
INR 1.20 11/15/24 02:43
APTT Cancelled 11/15/24 17:45
Magnesium 2.0 mg/dl (1.6-2.3) 11/19/24 03:36
Triglycerides 179 mg/dl (10-149) H 11/18/24 04:16
LDL Cholesterol, Calc 18 mg/dl 11/13/24 07:48
VLDL Cholesterol, Calc 37 mg/dl (0-30) H 11/13/24 07:48
HDL Cholesterol 25 mg/dl 11/13/24 07:48
11/12/24 11/16/24
17:49 04:50
Njx-P-Hfucaxjwcwt Pept 638 3200
Physical Exam
Constitutional: No acute distress
Cardiovascular: Rhythm & rate is regular and Pedal edema is absent
Respiratory: Respiratory effort normal and Lungs clear to auscul.
Neuro/Psych: AO x 3
Other: Cardiac Device Site (L pectoral incision, no hematoma. )
Data Reviewed
-
Date of Service: November 20, 2024
EKG: Other (Tele: NSR PVC's. )
Labs: Labs Reviewed by me
[2024-11-20] MEDS: NOVOLOG FLEXPEN-LOW RESISTANCE SC (08:54)
[2024-11-20] MEDS: JANUVIA 100 MG PO (09:00)
[2024-11-20] MEDS: PROSCAR 5 MG PO (09:00)
[2024-11-20] MEDS: CLARITIN 10 MG PO (09:00)
[2024-11-20] MEDS: PROTONIX 40 MG PO (09:00)
[2024-11-20] MEDS: MAGNESIUM OXIDE 500 MG PO (09:01)
[2024-11-20] MEDS: ZESTRIL 5 MG PO (09:01)
[2024-11-20] MEDS: FLOMAX 0.8 MG PO (09:01)
[2024-11-20] MEDS: ZEBETA 2.5 MG PO (09:01)
[2024-11-20] MEDS: LOW STRENGTH ASPIRIN 81 MG PO (09:02)
[2024-11-20] MEDS: LIDOCAINE 4% PATCH 2 PATCH TOPICAL (09:02)
[2024-11-20] MEDS: MIRALAX PO (09:03)
--- NOTE | 2024-11-20 09:03 | W.PN.CD ---
Addendum entered and electronically signed by Angelo De Los Santos MD 11/20/24 13:08:
I saw and examined the patient.
The NEWSPAPER PEDDLER's note was reviewed and I agree with the note.
Comment: Lasix PRN for weight gain, farxigan and amio cont; hold spironolactone for now
Original Note:
Today's Communication / Plan
-
add back farxiga as Cr improved.
add amiodarone 200mg daily
hold on spironolactone for now
hold lasix for now , will use prn weight gain edema
Pt to follow at our office prior to going back home. Office to call to set up appt.
Impression / Plan
-
Background: 69-year-old male with history of ischemic cardiomyopathy with recovered ejection fraction (EF 53% in 2022), atrial fibrillation s/p PVI (2005, 2015), CAD with reported remote PCI in 2007, insulin-dependent diabetes, obesity presents to
the emergency room via EMS status post out of hospital cardiac arrest.
Primary out of hospital VF arrest
Complex PVCs, multiform, and NSVT 3-4 beats
- s/p dual chamber ICD 11/18/24- No contrast used to avoid renal injury
- LBBB but the QRS was narrow to 145 ms and decided to keep [place] conduction as patient is not likely to pace the rv
Hypoxic brain injury, improving , plan is for [facility]
Nonischemic myocardial injury from VF/CPR/Shocks, peak troponin 2.09
HFrEF (LVEF 30-35%), Acute on chronic
- LVEDP at cath 26 mmHg 11/15/2024
- Follows with Dr. Muñoz from [facility] ([place]). Reviewed outside records. - Last TTE August 2022: Moderately dilated LV, LVEF 53%, severe LA dilation, mild
-meds were held secondary to increased Cr. Now Cr improved. add back farxiga. hold on spironolactone for now.
CAD with remote PCI => no obstructive CAD at cath 11/15/2204, IVUS of LM was negative
Paroxysmal atrial fibrillation status post PVI, Declined anticoagulation in the past.
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
Diabetes
-Management per primary.
Subjective/Interval History:
Some rib and chest discomfort from CPR.
ICD site stable
Denies CP,palps, SOB
DATA:
CT Head, 11/15/2024:
IMPRESSION:
No acute intracranial abnormality.
Echocardiogram, 11/15/2024:
CONCLUSIONS
Technically difficult study - Definity used.
Moderately reduced left ventricular systolic function.
Global hypokinesis with left ventricular ejection fraction of 30-35% by visual
estimate.
No significant valvular disease.
Mildly dilated aortic root.
Compared to previous echo 11/12/24, the ejection fraction has improved from 20%
on the prior study.
EEG, 11/15/2024:
CLINICAL CORRELATION:
This study was suggestive of diffuse cortical dysfunction without focal abnormality. No seizures were recorded.
Clinical correlation is advised.
Physical Exam
Vital Signs/Labs
Vital Signs
Temp Pulse Resp BP Pulse Ox
97.5 F 69 16 108/73 96
11/20/24 07:18 11/20/24 07:56 11/20/24 07:56 11/20/24 03:53 11/20/24 07:56
11/19/24 11/20/24 11/21/24
06:59 06:59 06:59
Actual Weight 149.3 kg 150 kg
11/20/24 04:24
11/20/24 04:24
PT 15.5 Sec (11.4-14.6) H 11/15/24 02:43
INR 1.20 11/15/24 02:43
APTT Cancelled 11/15/24 17:45
Magnesium 2.0 mg/dl (1.6-2.3) 11/19/24 03:36
Triglycerides 179 mg/dl (10-149) H 11/18/24 04:16
LDL Cholesterol, Calc 18 mg/dl 11/13/24 07:48
VLDL Cholesterol, Calc 37 mg/dl (0-30) H 11/13/24 07:48
HDL Cholesterol 25 mg/dl 11/13/24 07:48
11/12/24 11/16/24
17:49 04:50
Kxd-G-Nlfjovhnalk Pept 638 3200
Physical Exam
Cardiovascular: Rhythm & rate is regular, Pedal edema is absent and S1S2 is normal
Respiratory: Respiratory effort normal and Lungs clear to auscul.
GI: Soft and Non tender
Neuro/Psych: AO x 3
Other: Cardiac Device Site (L pectoral incision dressing intact, no hematoma. )
Data Reviewed
-
Date of Service: November 20, 2024
EKG: Other (Tele' NSR PVC's )
[2024-11-20] MEDS: NOVOLOG FLEXPEN 17 UNITS SC ×2 (09:05→13:19)
--- NOTE | 2024-11-20 11:00 | PTCARENOTE ---
pt is sr on the monitor, hr in the 70s, vss. pt c/o left flank pain, lido patches placed, see MAR. Pt educated on plan of care and pt verbalized understanding. pt oob to chair for breakfast and tolerating well. call jeri w/in reach.
[2024-11-20] MEDS: PACERONE 200 MG PO (11:23)
[2024-11-20 11:45] VITALS: BP 100/70
[2024-11-20 13:02] LABS: Glucose - Point of Care 154 mg/dl (70-99)
[2024-11-20] MEDS: NOVOLOG FLEXPEN-LOW RESISTANCE 1 UNITS SC (13:18)
--- NOTE | 2024-11-20 14:40 | W.PN.HOSP.TC ---
Addendum entered and electronically signed by Radhika Interiano MD 11/20/24 14:54:
I saw and evaluated the patient independently. I reviewed the resident�s note and agree with findings and plan as documented by Dr. Hines.
GENERAL: well developed, well nourished, obese male in no apparent distress
HEENT: NC/AT--still on O2
HEART: regular rate and rhythm, +S1, +S2 with ectopy
LUNGS: decreased BS bilaterally
ABDOM: soft, nontender, nondistended, + bowel sounds
EXT: no cyanosis, clubbing, or edema
NEUROLOGIC: grossly intact
Witnessed Cardiac Arrest due to presumed Ventricular Fibrillation with CPR -- Reported V-Fib on initial tracings in patient with known heart disease/cardiomyopathy--cont amiodarone--finished targeted temp protocol--off sedation--off levophed--ECHO
with EF 20% (down from 35-40% in 2021), repeat improved to 30% with global hypokinesis--s/p cardiac cath without need for stents--s/p defibrillator 11/18/24--apprec cards/director rehabilitation program/neuro--repeat head CT without acute intracranial abnormality
ALBER--likely due to overdiuresis--hold lasix, aldactone, Farxiga--resolved
rib fractures--from CPR--pain control--PT/OT
troponin elevation--could be from CPR most likely--less so primary cardiac event--peaked at 2.09
VDRF--intubated for cardiac arrest--extubated
Lactic Acidosis/Abnormal LFTs--likely from cardiogenic shock from cardiac arrest--lactate acidosis resolved
ASCVD - s/p prior stents - most recent about 20y ago per -- No recent issues with chest pain, exertional dyspnea, etc-- EKG with non-specific ST changes but no evident ST elevations noted-- IV heparin, daily ASA, etc.
Acute on Chronic HFrEF--LVEF=20% compared with 35-40% in 2021--CXR shows some degree of pulmonary edema - but no rales appreciated on exam-- IV diuresis now on hold due to increased creat which has resolved
Paroxysmal Atrial Fibrillation--s/p cardioversions and ablations--Currently in sinus rhythm--Not on any antiarrhythmic medications. Patient has declined OAC in the past.
Essential Hypertension--hold meds as needed--restart as able pending BP
Type 2 DM--Current hyperglycemia likely secondary to acute event-- notes that glucose has been well-controlled recently--adjust insulins as needed-- Cover with SSI as needed-- A1C 8.9--s/p glycemic protocol
Obesity due to excess calories--affects all aspects of care- - Encourage healthy diet and activity as able for goal of weight loss.
HUANG on CPAP-- resume nightly CPAP
BPH--Fontenot placed in the ED-- Patient scheduled for TURP in December.
DVT Proph
Code Status: Full
dispo--Ok for [facility]
Original Note:
Today's Communication/Plan
-
Creatinine at baseline, 1.3
Discharged to [facility] rehab today
Hold Lasix, Aldactone at discharge
Continue Farxiga
Start amiodarone 200 mg daily per cardiology
Assessment / Plan
Assessment / Plan
Impression
Witnessed cardiac arrest due to presumed ventricular fibrillation
Troponin elevation
Acute hypoxic respiratory insufficiency
Lactic acidosis/abnormal LFTs
UTI positive Enterococcus
ASCVD s/p prior stents
Acute on chronic HFrEF
Paroxysmal atrial fibrillation
Essential hypertension
Type 2 diabetes
Obesity due to excess calories
HUANG on CPAP
BPH
Plan
Witnessed cardiac arrest due to presumed ventricular fibrillation --with CPR
s/p [facility] no stents placed. 20% stenosis RCA proximal, 40% RCA distal, LAD 40 to 50%.
Reported V-fib in ED initial tracing later torsades de pointes
Finished targeted temperature control now normothermic
Patient extubated on 11/14/2024
Off pressors
LVEF improved to 30%-35% with global hypokinesis
Anticipate ICD implantation today
S/p ICD implantation on 11/18/2024
Creatinine at baseline, 1.3
Discharged to [facility] rehab today
Hold Lasix, Aldactone at discharge
Continue Farxiga
Start amiodarone 200 mg daily per cardiology
Elevated troponin-- improved/resolved
Likely due to cardiac arrest and stress
Peaked at 2.09 and downtrending
Acute hypoxic respiratory insufficiency due to cardiac arrest/cardiogenic shock --- improved/resolved
On room air
Chest x-ray reveals mild cardiomegaly with suggestion of mild interstitial cardiogenic pulmonary edema, unchanged bilateral lower lobe airspace consolidation.
Lactic acidosis/abnormal LFTs-- improving
Likely cardiogenic shock from cardiac arrest
Lactate within normal limits- 1.7
LFTs downtrending
UTI positive Enterococcus recovered on culture
Continue IV Unasyn
Monitor temperature curve, WBC.
ASCVD s/p prior stents
Around 20 years ago per
No recent chest pain/shortness of breath/exertional dyspnea
EKG with nonspecific ST changes but no evidence of ST elevation
Continue IV heparin and daily aspirin
Chronic HFrEF
LVEF stable at 20%
Stop IV fluids and start IV lasix
Repeat echo
Paroxysmal Atrial Fibrillation--s/p cardioversions and ablations
Currently in sinus rhythm
Not on any antiarrhythmic medications.
Patient has declined OAC in the past.
Essential Hypertension
Resume to oral medication
Type 2 DM
Current hyperglycemia likely secondary to acute event
notes that glucose has been well-controlled recently
Basal 28 units and bolus 8 units
Goal blood glucose 140- 180
Obesity due to excess calories
affects all aspects of care
Encourage healthy diet and activity as able for goal of weight loss.
HUANG on CPAP--Currently on vent support - resume nightly CPAP after extubated.
BPH--Fontenot placed in the ED-- Patient scheduled for TURP in December.
DVT Proph--On therapeutic heparin.
Code Status: Full
Anticipated Discharge: Today
Subjective/Interval History
-
Date of Service: November 20, 2024
No overnight event
Objective Data
-
Labs:
Laboratory Results
11/20/24
04:24
WBC 9.2
Hgb 9.9 L
Hct 29.5 L
Plt Count 202
Sodium 138
Potassium 4.1
Chloride 102
Carbon Dioxide 25
BUN 44 H
Creatinine 1.3
Glucose 125 H
Calcium 8.8
Vital Signs:
Vital Signs
Temp Pulse Resp BP Pulse Ox
98.2 F 72 18 100/70 96
11/20/24 11:09 11/20/24 14:00 11/20/24 11:09 11/20/24 11:45 11/20/24 11:09
I&O
11/19/24 11/20/24 11/21/24
06:59 06:59 06:59
Intake Total 840 / 840 1770 / 1770 480 / 480
Output Total 260 / 260 900 / 900
Balance 580 / 580 870 / 870 480 / 480
Review of Systems
-
All other systems: Reviewed and negative
Physical Exam
-
General: No Apparent Distress and Comfortable
HEENT: Normocephalic and Atraumatic
Respiratory: Clear to Auscultation
Cardiac: Regular Rhythm and S1/S2
Musculoskeletal: No Edema
Neuro: AO x 3
Psych: Calm
Data Reviewed
-
Labs: Labs Reviewed by me and Discussed with Physician
[2024-11-20] MEDS: ORAJEL 10% GEL 1 APPLIC TOPICAL (15:13)
--- NOTE | 2024-11-20 15:40 | W.DCSUMMARY ---
Addendum entered and electronically signed by Radhika Interiano MD 11/20/24 17:18:
Read, reviewed, and agree. See same day progress note for additional details. Time spent coordinating care, DC planning, review of DC plan of care with resident, transition of care, review of records in EMR, med rec, consults, notes, d/w
consultants, nursing, family, and CM = 36 minutes
Original Note:
Discharge Summary
Discharge Data
Date of Admission: 11/12/24
Date of Discharge: 11/20/24
-
Pending Results: No
Hospital Course
Discharging Physician : Dr Alonso Hines, Dr. Radhika Interiano
Disposition : Acute rehab
Primary care physician : Unknown
Principal Discharge diagnosis :
Witnessed Cardiac Arrest due to presumed Ventricular Fibrillation with CPR
S/p LHC and ICD implantation
ALBER
Paroxysmal atrial fibrillation
Acute on chronic HFrEF
Chronic Discharge diagnosis :
ASCVD s/p prior stents
Paroxysmal atrial fibrillation
Acute on chronic HFrEF
Essential hypertension
Type 2 diabetes
HUANG on CPAP
BPH
Hospital Course : 69-year-old male presented with witnessed cardiac arrest with CPR, reported V-fib on initial tracing . He has a known history of CAD with prior stents. Patient was on pressors, amiodarone, targeted temperature control.
Echocardiogram revealed ejection fraction of 20%--improved to 30 to 35% with global hypokinesis. Patient had left heart catheterization, no stents were placed. GDMT therapy was initiated. Patient underwent ICD implantation for chronically
reduced ejection fraction. There were no postop complications. Urine culture recovered positive Enterococcus faecalis and endotracheal tube culture recovered MSSA. Patient was started on IV Unasyn. Patient is being discharged to acute rehab
facility. Advised to hold Lasix and Aldactone due to acute on chronic kidney injury. Advised patient to start taking amiodarone 200 mg daily, continue Farxiga 10 mg daily. Transition of IV Unasy to Augmentin to complete antibiotic course of 10
days. Continue all of the home medication
Important imaging findings :
Echocardiogram :
Moderately reduced left ventricular systolic function. Global hypokinesis with left ventricular ejection fraction of 30-35% by visual estimate. No significant valvular disease. Mildly dilated aortic root.
Compared to previous echo 11/12/24, the ejection fraction has improved from 20% on the prior study.
Abdominal CT/pelvis
Moderate diffuse bilateral dependent consolidation, likely atelectasis. Mild asymmetric disproportionate consolidation in the posterior left upper lobe. Possible from post pneumonia. Scattered patchy mild airspace opacity in the upper lungs, likely
related to hypoinflation.
Procedure findings :
Left heart catheterization 11/15/2024
CONCLUSIONS
1. Right dominant circulation with a 20% lesion in the proximal RCA, 40% lesion in the distal RCA, luminal irregularities in the proximal LAD and a 40-50% lesion in the distal left main immediately proximal to the origin of the LAD.
2. Successful IVUS of the 40-50% distal left main lesion, demonstrating nonocclusive minimal luminal area (9.0 mm�).
3. Severely elevated filling pressures (LVEDP = 26 mmHg at 157.4 kg).
ICD implantation 11/18/24--- successful
Instructions to be given to patient:�
- Please follow up with [facility] at [address] [place] [address] ([phone]) to get your wound checked within 14 days of your discharge.
- Do not soak incision site until after it is evaluated at cardiology clinic. OK to showers followed by dab dry the area. No baths or swimming until then. Sponge baths are OK.�
- Allow 'steri strips' to fall off on their own�
- Do not lift left elbow above shoulder, particularly with sudden jerking movements, for 1 month�
- Do not lift anything weighing more than 5 pounds with the left arm for 1 month�
- If you notice any fevers, shortness of breath, lightheadedness, chest pain, or worsening swelling in the wound site, please contact the arrhythmia clinic, contact your digital asset manager, or present to the hospital for evaluation.�
Discharge Plan
-
Patient Disposition: Acute Rehab Facility
Discharge Diagnosis/Procedures: Witnessed Cardiac Arrest due to presumed Ventricular Fibrillation with CPR
S/p ICD implantation
ALBER
ASCVD s/p prior stents
Paroxysmal atrial fibrillation
Acute on chronic HFrEF
Essential hypertension
Type 2 diabetes
HUANG on CPAP
BPH
Condition: Good
Diet: Diabetic, Carb Controlled
Activity: As tolerated
Driving Restrictions: As prior to admission
Bathing Restrictions: OK to Shower
Stand Alone Forms: DC Inst - Implanted Device
Referrals:
[facility] at [place] [Other]
.[facility]- [facility] [Provider Group] - 11/26/24 11:20 am (Incision check appointment)
Additional Discharge Medication Instructions:
Creatinine stable at 1.3, discontinue all nephrotoxic drugs
Stop spironolactone.
Continue Farxiga--for heart failure
New addition of amiodarone 200 mg daily--for heart failure/ paroxysmal atrial fibrillation
Follow-up with outpatient cardiology on 11/26/2024
Start taking Augmentin 1 tablet twice daily to complete antibiotic course--UTI
Prescriptions:
New
amiodarone 200 mg Tablet
200 mg PO DAILY Qty: 30 0RF
lisinopril 5 mg Tablet
5 mg PO DAILY Qty: 30 0RF
dapagliflozin propanediol 10 mg Tablet
10 mg PO DAILY Qty: 30 0RF
insulin aspart U-100 100 unit/mL (3 mL) Insulin Pen
17 unit SC AC Qty: 15 0RF
Insulin Glargine Lantus [Lantus] 35 UNITS
Subcutaneous Insulin Syringe [Syringe-Insulin] 0 UNIT
As Directed mls/hr SC HS
Reason for use: Diabetes
Ordered By: Alonso Hines MD, Resident
Last Taken: 11/19/24 22:01 0.35 mls
amoxicillin-pot clavulanate 875-125 mg tablet
1 tab PO BID 4 Days Qty: 8 0RF
Continued
latanoprost 0.005 % Drops
1 drp RIGHT EYE HS
atorvastatin 80 mg Tablet
80 mg PO HS
bisoprolol fumarate 5 mg Tablet
2.5 mg PO BID
omeprazole 20 mg Capsule,Delayed Release(Dr/Ec)
20 mg PO BID
lisinopril 5 mg Tablet
5 mg PO DAILY
metformin 500 mg Tablet Extended Release 24 Hr
See Rx Instructions .ROUTE .COMPLEX
Rx Instructions:
Pt self doses 500 mg orally in the morning & takes 2 tablets at bedtime. however the MD ordered 1 tablet TID.
Januvia 100 mg Tablet
100 mg PO DAILY
tamsulosin 0.4 mg Capsule
0.8 mg PO DAILY 30 Days Qty: 60 0RF
repaglinide 1 mg Tablet
See Rx Instructions .ROUTE .COMPLEX
Rx Instructions:
1 mg orally in the AM.
2mg at bedtime.
MD ordered 1mg TID, but he takes 1mg in AM & 2mg at bedtime
potassium chloride 20 mEq Tablet Extended Release
20 meq PO DAILY
aspirin 81 mg Tablet
81 mg PO DAILY
fexofenadine 180 mg Tablet
180 mg PO DAILY
magnesium oxide [MagOx] 400 mg (241.3 mg magnesium) Tablet
400 mg PO DAILY
zinc 50 mg Tablet
50 mg PO DAILY PRN (Reason: if feeling sick)
multivitamin Tablet
1 tab PO DAILY
finasteride 5 mg Tablet
5 mg PO DAILY 30 Days Qty: 30 0RF
Discontinued
insulin glargine [Basaglar KwikPen U-100 Insulin] 100 unit/mL (3 mL) Insulin Pen
38 unit SC HS
naltrexone 50 mg Tablet
25 mg PO DAILY
spironolactone 25 mg Tablet
12.5 mg PO BID
Discharge Orders:
Discharge Patient (As Directed); Ordered 11/20/24
Ordered By: Alonso Hines
Care Plan Goals
Care Plan Goals:
Problem: Readiness for enhanced knowledge related to diagnosis and treatment plan
Goal: Understand your diagnosis and treatment plan needs, including medications if applicable.
Instructions: Know your diagnosis, underlying causes and treatment plan options, including medications if applicable. Consult with your health care team to learn about your diagnosis and treatment plan, including medications if applicable.
Discharge Date and Time
Discharge Date/Time: 11/20/24 15:54
Print Language: LEBANESE
--- NOTE | 2024-11-20 15:58 | PTCARENOTE ---
d/c instructions sent to marisel w/ pt. report called to nadege. iv and tele removed. pt left w/ belongings from room, d/c instructions and educational material. pt left via wheelchair w/ staff member.
== END 2024-11-20 15:54 | DRG 275 ==
LOC: IVU 20:14
PROVIDERS: Internal Medicine; Internal Medicine Cardiovascular Disease; Nurse Practitioner; Nurse Practitioner Primary Care; Student in an Organized Health Care Education/Training Program; ADMITTING PHYSICIAN Hospitalist; ATTENDING PHYSICIAN Internal Medicine; CONSULT PHYSICIAN Internal Medicine Critical Care Medicine; CONSULT PHYSICIAN Psychiatry & Neurology Neurology; EMERGENCY PHYSICIAN Emergency Medicine; OTHER PHYSICIAN Student in an Organized Health Care Education/Training Program
PROC: 5A1945Z Respiratory Ventilation, 24-96 Consecutive Hours (ICD-10-PCS; 2024-11-12)
PROC: 0BH17EZ Insertion of Endotracheal Airway into Trachea, Via Natural or Artificial Opening (ICD-10-PCS; 2024-11-12)
PROC: 03HY32Z Insertion of Monitoring Device into Upper Artery, Percutaneous Approach (ICD-10-PCS; 2024-11-13)
PROC: 5A09357 Assistance with Respiratory Ventilation, Less than 24 Consecutive Hours, Continuous Positive Airway Pressure (ICD-10-PCS; 2024-11-14)
PROC: B240ZZ3 Ultrasonography of Single Coronary Artery, Intravascular (ICD-10-PCS; 2024-11-15)
PROC: B2111ZZ Fluoroscopy of Multiple Coronary Arteries using Low Osmolar Contrast (ICD-10-PCS; 2024-11-15)
PROC: 4A023N7 Measurement of Cardiac Sampling and Pressure, Left Heart, Percutaneous Approach (ICD-10-PCS; 2024-11-15)
PROC: 0JH608Z Insertion of Defibrillator Generator into Chest Subcutaneous Tissue and Fascia, Open Approach (ICD-10-PCS; 2024-11-18)
PROC: 02HK3KZ Insertion of Defibrillator Lead into Right Ventricle, Percutaneous Approach (ICD-10-PCS; 2024-11-18)
PROC: 02H63KZ Insertion of Defibrillator Lead into Right Atrium, Percutaneous Approach (ICD-10-PCS; 2024-11-18)
DX: I49.01 Ventricular fibrillation (principal); G92.8 Other toxic encephalopathy; I50.23 Acute on chronic systolic (congestive) heart failure; J96.01 Acute respiratory failure with hypoxia; J96.02 Acute respiratory failure with hypercapnia; J69.0 Pneumonitis due to inhalation of food and vomit; R57.0 Cardiogenic shock; E87.20 Acidosis, unspecified; Z68.41 Body mass index [BMI] 40.0-44.9, adult; M96.A2 Fracture of one rib associated with chest compression and cardiopulmonary resuscitation; N17.9 Acute kidney failure, unspecified; I5A Non-ischemic myocardial injury (non-traumatic); I46.2 Cardiac arrest due to underlying cardiac condition; I25.10 Atherosclerotic heart disease of native coronary artery without angina pectoris; I11.0 Hypertensive heart disease with heart failure; I48.0 Paroxysmal atrial fibrillation; I25.5 Ischemic cardiomyopathy; E66.09 Other obesity due to excess calories; N40.1 Benign prostatic hyperplasia with lower urinary tract symptoms; E11.65 Type 2 diabetes mellitus with hyperglycemia; G47.33 Obstructive sleep apnea (adult) (pediatric); E78.00 Pure hypercholesterolemia, unspecified; I47.21 Torsades de pointes; I49.3 Ventricular premature depolarization; D64.9 Anemia, unspecified; K21.9 Gastro-esophageal reflux disease without esophagitis; F41.1 Generalized anxiety disorder; Z11.52 Encounter for screening for COVID-19; Z63.4 Disappearance and death of family member; Z79.4 Long term (current) use of insulin; Z79.899 Other long term (current) drug therapy; Z87.891 Personal history of nicotine dependence; Z95.5 Presence of coronary angioplasty implant and graft
CPT/HCPCS: 31500; 33249; 36556; 51702; 70450; 71045; 71275; 74177; 80048; 80053; 80061; 80306; 81003; 81015; 82077; 82248; 82330; 82550; 82553; 82607; 82805; 82962; 83036; 83605; 83690; 83735; 83880; 84100; 84132; 84134; 84302; 84443; 84478; 84484; 85025; 85027; 85347; 85610; 85730; 87040; 87070; 87077; 87086; 87147; 87186; 87205; 87449; 87811; 87899; 90677; 92523; 92526; 92610; 92978; 93005; 93306; 93307; 93458; 94002; 94003; 94640; 94660; 95816; 96374; 96375; 96376; 97116; 97163; 97167; 97530; 97535; 99152; 99153; 99291; C1753; C1892; C1894; G0009; Q9957; Q9967

== ENCOUNTER 2024-12-22 08:55 | Outpatient (RCR) | payer MEDICARE, BC, SELFPAY | END 2024-12-22 23:59 | disposition home or self-care (01) | LOC: ROT 08:55 | PROVIDERS: ATTENDING PHYSICIAN Physical Medicine & Rehabilitation; FAMILY PHYSICIAN Family Medicine | DX: R26.89 Other abnormalities of gait and mobility (principal); Z73.6 Limitation of activities due to disability; M62.81 Muscle weakness (generalized); M17.0 Bilateral primary osteoarthritis of knee; Z86.74 Personal history of sudden cardiac arrest | CPT/HCPCS: 97110; 97112; 97163; 97167; 97530; 97537 ==

== ENCOUNTER 2024-12-29 13:23 | Outpatient (RCR) | payer MEDICARE, BC, SELFPAY | END 2024-12-29 23:59 | disposition home or self-care (01) | LOC: ROT 13:23 | PROVIDERS: ATTENDING PHYSICIAN Physical Medicine & Rehabilitation; FAMILY PHYSICIAN Family Medicine | DX: R26.89 Other abnormalities of gait and mobility (principal); Z73.6 Limitation of activities due to disability; M62.81 Muscle weakness (generalized); M17.0 Bilateral primary osteoarthritis of knee; Z86.74 Personal history of sudden cardiac arrest | CPT/HCPCS: 97110; 97112 ==

== ENCOUNTER 2025-01-19 14:31 | Outpatient (RCR) | payer MEDICARE, BC, SELFPAY ==
[2024-12-30 10:03] LABS: Glucose - Point of Care 134 mg/dl (70-99)
[2024-12-30 12:16] LABS: Glucose - Point of Care 114 mg/dl (70-99)
[2024-12-31 13:26] LABS: Glucose - Point of Care 178 mg/dl (70-99)
[2024-12-31 14:00] LABS: Glucose - Point of Care 141 mg/dl (70-99)
[2025-01-03 13:09] LABS: Glucose - Point of Care 92 mg/dl (70-99)
[2025-01-03 14:00] LABS: Glucose - Point of Care 105 mg/dl (70-99)
[2025-01-05 13:10] LABS: Glucose - Point of Care 125 mg/dl (70-99)
[2025-01-05 14:00] LABS: Glucose - Point of Care 98 mg/dl (70-99)
[2025-01-05 14:31] LABS: Glucose - Point of Care 116 mg/dl (70-99)
[2025-01-07 13:09] LABS: Glucose - Point of Care 111 mg/dl (70-99)
[2025-01-07 13:56] LABS: Glucose - Point of Care 90 mg/dl (70-99)
[2025-01-07 14:20] LABS: Glucose - Point of Care 124 mg/dl (70-99)
[2025-01-10 13:03] LABS: Glucose - Point of Care 114 mg/dl (70-99)
[2025-01-10 13:57] LABS: Glucose - Point of Care 101 mg/dl (70-99)
[2025-01-12 13:11] LABS: Glucose - Point of Care 156 mg/dl (70-99)
[2025-01-12 14:10] LABS: Glucose - Point of Care 113 mg/dl (70-99)
[2025-01-14 13:09] LABS: Glucose - Point of Care 190 mg/dl (70-99)
[2025-01-14 14:04] LABS: Glucose - Point of Care 141 mg/dl (70-99)
[2025-01-17 13:05] LABS: Glucose - Point of Care 131 mg/dl (70-99)
[2025-01-17 14:06] LABS: Glucose - Point of Care 162 mg/dl (70-99)
[2025-01-19 13:08] LABS: Glucose - Point of Care 166 mg/dl (70-99)
[2025-01-19 14:00] LABS: Glucose - Point of Care 130 mg/dl (70-99)
== END 2025-01-19 18:10 | disposition home or self-care (01) ==
LOC: CRHB 14:31
PROVIDERS: ATTENDING PHYSICIAN Internal Medicine Cardiovascular Disease
DX: I25.10 Atherosclerotic heart disease of native coronary artery without angina pectoris (principal); I50.22 Chronic systolic (congestive) heart failure
CPT/HCPCS: 82962; G0422; G0423